=== PATIENT | female | born 1940 | race Caucasian/White ===

== ENCOUNTER 2019-04-16 17:15 | Inpatient (IN) | payer MEDICARE, SELFPAY ==
[2019-01-06 12:31] VITALS: BMI 28.5
[2019-04-16 17:30] VITALS: BP 134/49; PULSE 66; RESP 16; TEMP 36.6; O2SAT 95; BMI 28.4; BMI 28.5
[2019-04-16 19:11] VITALS: BP 134/49; PULSE 66; RESP 16; TEMP 36.6; O2SAT 95
[2019-04-16] MEDS: Capsaicin 0.025% 1 APPLIC Tube TOPICAL (21:15)
[2019-04-16] MEDS: Heparin Injection (Vial) 5,000 UNIT/ML VIAL 5000 UNIT SC (21:21)
[2019-04-16] MEDS: MELATONIN 3 MG TABLET 9 MG PO (21:22)
[2019-04-16] MEDS: Carvedilol 6.25 MG Tablet PO (21:22)
[2019-04-16] MEDS: dilTIAZem CD 120 MG Capsule PO (21:22)
[2019-04-16] MEDS: Smz/Tmp Ds Tablet 1 TABLET PO (21:22)
[2019-04-16] MEDS: Doxazosin 1 MG Tablet 2 MG PO (21:22)
[2019-04-16] MEDS: clonazePAM 0.5 MG Tablet 1 MG PO (21:33)
[2019-04-16] MEDS: Senna/Docusate Sodium 1 Tablet 2 TABLET PO (21:41)
--- NOTE | 2019-04-17 02:15 | NURSING ---
PT TRYING TO GET OUT OF BED. PT AWARE SHE IS IN HOSPITAL. INFORMED THAT SHE IS TO STAY IN BED FOR THE NIGHT. PT HALLUCINATING AND TALKING ABOUT HER FAMILY IF THEY WERE NEARBY. PT PLACED ON BEDPAN AND URINATES. PT PROVIDED NECTAR THICKENED SODA. PT TURNED TO OTHER SIDE. OFFERED TYLENOL FOR ACHING BACK, BUT PT REFUSES. PT REMAINS CALM AND COOPERATIVE.
--- NOTE | 2019-04-17 02:50 | NURSING ---
PT REMAINS AWAKE. WANTS TO GET UP AND OUT OF BED. PT AGREES TO TRY TYLENOL FOR BACKACHE PAIN WHICH IS SIMILAR TO BACK PAIN SHE GETS AT HOME AND USES IBUPROFEN WITH RELIEF AT HOME. PT CONTINUES TO BE COOPERATIVE. SPEECH IS CLEAR. NO CHANGES IN NEURO STATUS NOTED.
[2019-04-17] MEDS: Acetaminophen 325 MG Tablet 650 MG PO ×2 (02:56→20:33)
[2019-04-17 02:59] VITALS: PULSE 61; RESP 12; O2SAT 93
--- NOTE | 2019-04-17 04:01 | NURSING ---
PT HALLUCINATING THAT HER GRANDSON IS IN HER ROOM. PT DOESN'T BELIEVE THIS NURSE WHEN TOLD SHE IS HALLUCINATING. PT WANTS TO GET OUT OF BED. PT ASSISTED TO SIT AT SIDE OF BED. PT DOES NOT SUPPORT UPPER BODY SHE SITS ON SIDE OF BED. PT ENJOYS SITTING ON SIDE OF BED, DANGLING HER LEGS. PT PROVIDED A WARM BATH AND BACK LOTIONED. PT APPRECIATIVE AND ASSISTED TO LAY DOWN AND CLOSES EYES AND APPEARS RELAXED.
[2019-04-17 05:00] VITALS: BMI 28.4
[2019-04-17] MEDS: Heparin Injection (Vial) 5,000 UNIT/ML VIAL 5000 UNIT SC (06:52)
[2019-04-17] MEDS: Capsaicin 0.025% 1 APPLIC Tube TOPICAL ×3 (06:52→20:25)
[2019-04-17 07:15] VITALS: O2SAT 99
[2019-04-17] MEDS: Aspirin E.C. 81 MG Tablet PO (08:20)
[2019-04-17] MEDS: Magnesium Oxide 400 MG Tablet PO (08:20)
[2019-04-17] MEDS: Calcium Carb/Vitamin D 1 TABLET Tablet PO (08:20)
[2019-04-17] MEDS: Smz/Tmp Ds Tablet 1 TABLET PO ×2 (08:20→16:01)
[2019-04-17] MEDS: Doxazosin 1 MG Tablet 2 MG PO ×2 (08:20→20:26)
[2019-04-17] MEDS: Allopurinol 100 MG Tablet PO (08:21)
[2019-04-17] MEDS: dilTIAZem CD 120 MG Capsule PO ×2 (08:21→20:26)
[2019-04-17] MEDS: Carvedilol 6.25 MG Tablet PO ×2 (08:22→20:26)
[2019-04-17] MEDS: Furosemide 20 MG Tablet PO (08:23)
[2019-04-17] MEDS: Senna/Docusate Sodium 1 Tablet 2 TABLET PO ×2 (08:24→20:25)
[2019-04-17 08:43] VITALS: BP 136/64; PULSE 61; RESP 16; TEMP 36.3; O2SAT 100
--- NOTE | 2019-04-17 10:20 | HP.PCM_ITS ---
Problem List (1) Hemorrhagic cerebrovascular accident (CVA) Status: Acute Comment: Right thalamus 04/08/2019 (2) Hypertension Status: Chronic Qualifiers: Hypertension type: essential hypertension Qualified Code(s): I10 - Essential (primary) hypertension (3) Hypothyroidism Status: Chronic (4) Gout Status: Chronic (5) Chronic hypoxemic respiratory failure Status: Chronic (6) Chronic diastolic (congestive) heart failure Status: Chronic (7) Complicated UTI (urinary tract infection) Status: Acute (8) Anxiety Status: Chronic Comment: On clonazepam (9) Dysphagia Status: Acute (10) Overweight (BMI 25.0-29.9) Status: Chronic (11) Spinal stenosis Status: Chronic (12) Atherosclerosis of coronary artery of [place] heart without angina pectoris Status: Chronic Comment: CABG x 2: DEVRIES-LCx, PJ-D1 10/04/2010 (13) H/O coronary artery bypass surgery Status: Chronic Comment: CABG x 2: DEVRIES-LCx, PJ-D1 10/04/2010 (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 The pt is a 78-year-old female with a PMH of essential hypertension, hypothyroidism, coronary artery disease with history of CABG, inclusion body myositis, chronic diastolic congestive heart failure, chronic hypoxic respiratory failure on home O2, anxiety and chronic benzodiazepine use admitted to the Inpatient rehab unit at [facility] on 04/16/2019 for debility secondary to right thalamic hemorrhagic CVA on 04/08/2019 for greater than 3 hours of therapy daily with a goal of returning home at or near prior level of independence. The patient lives at a residential. Prior to the CVA she was walking with a front wheeled walker independently for short distance but relied on a wheelchair for longer distances. While at the [facility] she had a Blankenship catheter for 48 hours and then developed a complicated UTI and was placed on Bactrim. Results of urine culture were not sent with her paperwork. A brain MRI on 04/10/2019 showed acute/subacute right thalamic parenchymal hemorrhage without evidence of abnormal enhancement to suggest an underlying vascular lesion or mass. There was stable mass-effect and effacement of the right lateral and third ventricles without evidence of ventricular trapping or hydrocephalus. A CTA of the head and neck showed severe stenosis versus occlusion of the right BRICKLAYER HELPER P1 and proximal P2 segments with reconstitution distally. There was moderate focal stenosis of the left MCA proximal M2 segment and mild focal stenosis of the right MCA distal M1 segment. Echocardiogram was a poor study due to poor windows but showed a 55% left ventricular ejection fraction with no wall motion abnormalities. Agitated saline x2 was suboptimal. Echocardiogram at [facility] in 2011 showed normal left ventricular size with normal left ventricular systolic function and an EF of 60%. Pulmonary function tests done at [facility] on 07/12/2014 showed severe restrictive ventilatory defect with a symmetric reduction in diffusion capacity consistent with an interstitial lung disease. I suspect the severe restrictive defect may be due to inclusion body myositis causing weakness of the respiratory muscles. Past Medical History Past Medical History (Chronic Problems): Chronic Problems (Last Reviewed 04/17/19 @ 10:45 by Francine Chapa DO) Hypertension (Chronic) Hypothyroidism (Chronic) Gout (Chronic) Chronic hypoxemic respiratory failure (Chronic) Chronic diastolic (congestive) heart failure (Chronic) Anxiety (Chronic) On clonazepam Overweight (BMI 25.0-29.9) (Chronic) Spinal stenosis (Chronic) Restrictive lung disease (Chronic) Severe Atherosclerosis of coronary artery of [place] heart without angina pectoris (Chronic) CABG x 2: DEVRIES-LCx, PJ-D1 10/04/2010 H/O coronary artery bypass surgery (Chronic 10/04/10) CABG x 2: DEVRIES-LCx, PJ-D1 10/04/2010 Inclusion body myositis (Chronic) Medical History: Medical History (Last Reviewed 04/17/19 @ 10:45 by Francine Chapa DO) Atherosclerosis of coronary artery of [place] heart without angina pectoris (Chronic) I25.10 CABG x 2: DEVRIES-LCx, PJ-D1 10/04/2010 Inclusion body myositis (Chronic) G72.41 Asthma J45.909 Chronic respiratory failure with hypoxia J96.11 Due to myositis Obesity E66.9 Osteoarthritis M19.90 Polymyalgia rheumatica M35.3 Spinal stenosis M48.00 Hypoxemia (Resolved) R09.02 Shortness of breath R06.02 Dextrocardia (Ruled-out) Q24.0 Other abnormal heart sounds (Inactive) R01.2 Allergies hydrochlorothiazide Allergy (Verified 01/06/19 12:31) Swelling lisinopril Allergy (Verified 01/06/19 12:31) Swelling codeine Adverse Reaction (Severe, Verified 01/06/19 12:31) Unknown prednisone Adverse Reaction (Severe, Verified 01/06/19 12:31) Unknown paroxetine [From Paxil] Adverse Reaction (Intermediate, Verified 01/06/19 12:31) Agitation amiodarone Adverse Reaction (Verified 01/06/19 12:31) Other i went out of my head Corticosteroids (Glucocorticoids) Adverse Reaction (Verified 01/06/19 12:31) Other hyper diphenhydramine HCl [From Benadryl] Adverse Reaction (Verified 01/06/19 12:31) Other hyper morphine Adverse Reaction (Verified 01/06/19 12:31) Other it just paralyzes me. I will take it if in an end of life situation amlodopine Adverse Reaction (Severe, Uncoded 01/06/19 12:31) Flushing, nervousness Many foods Adverse Reaction (Severe, Uncoded 01/06/19 12:31) Hives Home Medications: Ambulatory Orders Medication Instructions Recorded Aspirin E.C. [Ecotrin] 81 mg PO DAILY 10/28/14 Calcium Carbonate/Vitamin D3 1 tab PO DAILY 10/28/14 [Calcium 500 mg Chewable Tablet] Cholecalciferol (VIT D3) [Vitamin 1,000 unit PO DAILY 10/28/14 D3] Clonazepam [Klonopin] 1 mg PO QHS 10/28/14 Multivitamins,Therapeutic 1 tab PO DAILY 10/28/14 [Multivitamin] Potassium 99 mg PO DAILY 10/28/14 allopurinol 100 mg tablet 100 mg PO DAILY tab 06/06/17 [place] Thyroid 0.45 mg PO DAILY 01/28/18 magnesium oxide 500 mg capsule 500 mg PO DAILY cap 01/28/18 Benzocaine/Menthol [Cepacol Sore 1 lozenger PO Q2H PRN PRN 04/16/19 Throat Lozenge] Capsaicin 1 applicatio TOPICAL TID 04/16/19 Carvedilol 1 tab PO BID 04/16/19 Cinnamon Bark [Cinnamon] 1,000 mg PO DAILY 04/16/19 Diltiazem HCl [Cardizem Cd] 120 mg PO BID 04/16/19 Doxazosin Mesylate 2 mg PO BID 04/16/19 Furosemide [Lasix] 20 mg PO DAILY 04/16/19 Heparin 5 Unit/5 ml (1/ml) Syr 5,000 units SQ TID 04/16/19 Lidocaine [Salonpas] 1 patch TOPICAL DAILY 04/16/19 Melatonin 9 mg PO QHS 04/16/19 Smz/Tmp Ds [Bactrim Ds] 1 tab PO BID 04/16/19 Tylenol 650 mg PO Q6H PRN PRN 04/16/19 Surgical History: Surgical History (Last Reviewed 04/17/19 @ 10:45 by Francine Chapa DO) H/O coronary artery bypass surgery (Chronic) Onset Date: 10/04/10 Z95.1 CABG x 2: DEVRIES-LCx, PJ-D1 10/04/2010 H/O arthroscopic knee surgery Z98.890 History of shoulder surgery Z98.890 History of back surgery Z98.890 History of hysterectomy Z90.710 Surgical History: coronary bypass surgery, total hip arthroplasty Psychiatric History: Anxiety EDGER AUTOMATIC History: No pertinent EDGER AUTOMATIC history Lives: [facility] Smoking Status: Never smoker Tobacco Use: Non-smoker Alcohol: None Drugs: None - *Family History Maternal Family History: Family History (Last Reviewed 04/17/19 @ 10:46 by Francine Chapa DO) Father CAD (coronary artery disease) Brother Cancer Brother Diabetes History Items: No pertinent history Review of Systems Constitutional: Reports: Weakness, Fatigue - has not been sleeping well. Denies: Chills, Fever, Weight Change Eyes: Denies: Blurred vision HEENT: Denies: Difficulty Hearing, Ear Pain, Eye Pain, Head Aches, Nasal Congestion, Sinus Congestion, Sinus Drainage, Sore Throat Cardiovascular: Denies: Chest Pain, Edema, Light Headedness, Orthopnea, Palpitations Respiratory: Denies: Cough, Hemoptysis, Pleuritic Pain, Shortness of Breath, Shortness of breath at rest, Sputum production Gastrointestinal: Denies: Abdominal Pain, Constipation, Diarrhea, Dyspepsia, Nausea, Vomiting Genitourinary: Denies: Dysuria Gynecological: Denies: Vaginal discharge Musculoskeletal: Reports: Back Pain - chronic, Shoulder Pain - left. Denies: Joint Pain, Joint Tenderness Skin: Reports: Dryness. Denies: Jaundice, Pruritis, Rash, Wounds Neurological: Reports: Balance problems, Confusion - having some confusion/delirium. Denies: Focal weakness, Headaches, Numbness, Tingling, Tremor, Seizures Psychiatric: Denies: Anxiety, Depression, Homicidal Ideations, Suicidal Ideations Endocrine: Denies: Change in Body Habitus, Hx of Irradiation Hematologic/ Lymphatic: Denies: Easy Bruising, Easy Bleeding, Hx of blood clot VTE Information - Inpt Only VTE Present on Admission: No VTE Mechan Device Prophylaxis: None VTE Pharm Prophylaxis ordered?: Yes Patient Problems: Active and Suspected Problems (Last Reviewed 04/17/19 @ 10:45 by Francine Chapa DO) Hemorrhagic cerebrovascular accident (CVA) (Acute) Right thalamus 04/08/2019 Complicated UTI (urinary tract infection) (Acute) Dysphagia (Acute) History of polymyalgia rheumatica (Acute) - Physical Exam Vitals/I&O's: Vital Signs Temp Pulse Resp BP Pulse Ox 97.4 F L 61 16 136/64 H 100 04/17/19 08:43 04/17/19 08:43 04/17/19 08:43 04/17/19 08:43 04/17/19 08:43 Oxygen Flow Rate (L/min) 2 Oxygen Delivery Method Nasal Cannula Weight: 150 lb 9.211 oz Body Mass Index (BMI) 28.4 Finger Stick Blood Glucose 111 Intake and Output for Last 24 Hours 04/15/19 04/16/19 04/17/19 23:59 23:59 23:59 Intake Total 200 / 200 420 / 420 Output Total 200 / 200 300 / 300 Balance 0 / 0 120 / 120 General: Alert, Oriented x3, Cooperative, Well developed, Well nourished, - - appears tired HEENT: Atraumatic, PERRLA, EOMI, Normocephalic Oral: Dry Mucosa, - - the tongue is coated with a thick whitish exudate and she is always having a bad taste in her mouth Neck: Supple, No JVD, Negative Carotid Bruits, No Nodes, Trachea Midline Lungs: - - the upper lungs posteriorly are CT auscultation but, there is very diminished air exchange in the bases and there is inspiratory and expiratory wheezing. She is not tachypneic at rest and has no conversational dyspnea. There is no accessory muscle use. Cardiovascular: Regular rate, Regular Rhythm, Normal S1, Normal S2, No murmurs, No rub noted, No Gallop Abdomen: Bowel Sounds Present, Soft, Non Tender, Non-Distended, - - No guarding with palpation. No pain with palpation of the suprapubic area Extremities: No clubbing, No cyanosis, No edema Musculoskeletal: Muscle Wasting Neurological: Cranial nerves II-XII grossly intact, - - no facial droop. Intact sensation throughout. No visual field cuts. 1/5 strength LUE.....can move it a little side to side on the bed but, can not lift it off the bed. Left solution architect is weaker than the right. She can lift the left leg off the bed a couple inches but, it drifts down. Can do heel to leigh with the R leg and finger to nose with the R hand (she is R hand dominant) but, can not do either with the Left arma and leg. Psych/Mental Status: Normal Affect, Appropriate Current Medications Acetaminophen (Tylenol) 650 mg PO Q6H PRN PRN PRN Reason: pain or fever Last Admin: 04/17/19 02:56 Dose: 650 mg Documented by: [facility]) [facility] Last Admin: 04/17/19 08:21 Dose: 100 mg Documented by: Aspirin (Ecotrin) [facility] Last Admin: 04/17/19 08:20 Dose: 81 mg Documented by: Bisacodyl (Dulcolax) 10 mg RECTAL .PRN X 1 PRN PRN Reason: Constipation Calcium/Vitamin D (Os-Wiliam 500mg + D) [facility] Last Admin: 04/17/19 08:20 Dose: 1 tablet Documented by: Capsaicin (Zostrix) 1 applic TOPICAL TID [facility] Last Admin: 04/17/19 06:52 Dose: 1 applicatio Documented by: Carvedilol (Coreg) 6.25 mg PO BID [facility] Last Admin: 04/17/19 08:22 Dose: 6.25 mg Documented by: Cholecalciferol (Vitamin D) 1,000 unit PO DAILY [facility] Last Admin: 04/17/19 08:20 Dose: 1,000 unit Documented by: Clonazepam (Klonopin) 1 mg PO QHS [facility] Last Admin: 04/16/19 21:33 Dose: 1 mg Documented by: Diltiazem HCl (Cardizem Cd) 120 mg PO BID [facility] Last Admin: 04/17/19 08:21 Dose: 120 mg Documented by: Doxazosin Mesylate (Cardura) 2 mg PO BID [facility] Last Admin: 04/17/19 08:20 Dose: 2 mg Documented by: Furosemide (Lasix) 20 mg PO DAILY [facility] Last Admin: 04/17/19 08:23 Dose: 20 mg Documented by: Heparin Sodium (Porcine) (Heparin Na) 5,000 unit SC Q8 [facility] Last Admin: 04/17/19 06:52 Dose: 5,000 unit Documented by: Lidocaine (Lidoderm Patch) 1 patch TOPICAL DAILY [facility]; Protocol Magnesium Hydroxide (Milk Of Magnesia) 30 ml PO .PRN X 1 PRN PRN Reason: Constipation Magnesium Oxide (Mag-Ox 400) 400 mg PO DAILY [facility] Last Admin: 04/17/19 08:20 Dose: 400 mg Documented by: Melatonin (Melatonin) 9 mg PO QHS [facility] Last Admin: 04/16/19 21:22 Dose: 9 mg Documented by: Non-Formulary Medication ([place] Thyroid) 0.45 mg PO DAILY [facility] Senna/Docusate Sodium (Senokot-S, Yuliya-Colace) 2 tablet PO BID [facility] Last Admin: 04/17/19 08:24 Dose: 1 tablet Documented by: Throat Lozenges (Cepacol Sore Throat Lozenge) 1 lozenge MUCOUS MEM Q2H PRN PRN PRN Reason: SORE THROAT Trimethoprim/Sulfamethoxazole (Bactrim Ds) [facility] Last Admin: 04/17/19 08:20 Dose: 1 tablet Documented by: Assessment/Plan All Active Problems (Last Reviewed 04/17/19 @ 10:45 by Francine Chapa DO) Hemorrhagic cerebrovascular accident (CVA) (Acute) Complicated UTI (urinary tract infection) (Acute) Dysphagia (Acute) History of polymyalgia rheumatica (Acute) Hypoxemia (Resolved) Nonspecific abnormal unspecified cardiovascular function study (Resolved) Dextrocardia (Ruled-out) Impressions 1. Debility secondary to right thalamic hemorrhagic CVA on 04/08/2019 with left side weakness, dysphagia, memory deficits 2. Delirium secondary to acute CVA plus/minus urinary tract infection. Patient is on Bactrim currently which can cause some confusion in the elderly. We will request the results of the urine culture from [facility] and adjust antibiotic appropriately. 3. Complicated cystitis in a pt who had a Blankenship cath for 48 hours. Currently on Bactrim started at [facility]. 4. Diminished BS's and wheezing in the bases of both lungs. PA and LAT CXR ordered to r/o PNA. IS and PEP ordered and PRN Aerosolized bronchodilators. 5. Inclusion body myositis- this complicates care, management and prognosis. There is really no effective medication that treats IBM. Steroids do not work. Therapy is a mainstay of treatment. 6. chronic medical conditions -essential hypertension/hypothyroidism/severe restrictive lung disease/coronary artery disease with history of CABG/chronic low back pain with history of back surgery/gout/history of diastolic congestive heart failure/anxiety-complicate care, management and prognosis PLAN PT for gait stability OT for ADL's ST for evaluation Analgesics as needed Bowel protocol Fall precautions Assess for Anxiety/Depression GI prophylaxis not necessary at this time DVT prophylaxis with Lovenox 40 mg subcutaneously daily Follow up with Tamera Zepeda following DC from [facility] Obtain PCP results of muscle biopsy, problem list and med list Obtain the urine culture results from [facility], CBC with diff, Mag, phos, ESR, UA in the AM PA and LAT CXR today. A total of 75 minutes was spent reviewing paperwork from [facility], reviewing old ECHO, lab etc from [facility], interviewing and examining the pt and completing paperwork for this patient and doing admit orders. Code Visit Inpatient E&M: [id number] Init Hosp L3
--- NOTE | 2019-04-17 11:50 | PCM.RU.PYE ---
Admission Information Primary Diagnosis:: Debility secondary to right thalamic hemorrhage on 04/08/2019 Status Changes from Prescreening?: No changes Identified Actual Problem List:: Infection, UTI, Skin Intergrity, Cognitve Impr/Memory Loss, Alteration in Sleep, Mobility Impaired, Self Care Deficit, BP, Hypertension, Alteration-Leisure Activ. Potential Problem List:: DVT, Bleeding, Infection, UTI, Aspiration, Falls, Skin Integrity, Depression Risk of Complications DVT: LMWH Bleeding: Monitor Lab Values, Nursing to Teach Precautions for anti-coagulation therapy., Wound, if applicable, to be assessed every shift., Stroke patients assessed for lethargy or change in status. Infection: Clinical Staff to Monitor for S/S of infection:, S/S of infection include fever, redness, warmth, etc. Urinary Tract Infection: Monitor for frequency, burning, discomfort, or incontinence., Nursing will obtain urine sample for urinalysis and C&S when ordered. Aspiration: Clinical staff will monitor for coughing, drooling, congestion., Speech will evaluate swallowing and dsyphasia., Nursing will monitor patient swallowing during meals. Falls: Patient will be evaluated for Fall Precautions, Patient will be placed on Fall Precautions as indicated per protocol. Skin Breakdown: Nursing will assess skin daily using assessment tool., Nursing will place on Skin Breakdown Precautions as indicated. Pain: Clinical staff will assess patient's pain level per protocol., Medications will be given, if needed, and the pain level reassessed., Other methods: Massage, distraction, decrease stimulus, etc. used PRN. Plan of Care Patient requires physician specializing in physical medicine and rehab oversight to provide close medical supervision of rehab issues including: Pain Management, Sleep Problems, Bowel and Bladder, Medical and co-morbidity Management, DVT prophylaxis, Rehabilitation Leadership, Coordination of treatment team Patient needs Physical Therapy: For a minimum of 1 hour, At least 5 out of 7 days Patient needs Physical Therapy to improve:: Mobility, Mobility, Mobility, Strengthening, Transfers, Stretching, ROM, Endurance, Stairs, Gait, Balance Patient needs Occupational Therapy: For a minimum of 1 hour, At least 5 out of 7 days Patient needs Occupational Therapy to improve ADL's incl.: Eating, Grooming, Bathing, Dressing, Toileting, Toilet transfers, Community Reintegration, Higher functioning activities, Household tasks, Adaptive Equipment, Splinting, Other activities as determined Patient requires speech therapy: For a minimum of 1 hour, At least 5 out of 7 days Patient requires speech therapy for: Swallowing, Cognition, Language Skills, Compensatory Strategies Patient requires 24/ Rehabilitation Nursing for: Pain Issues, Identifying and preventing risk factors, Monitoring and reporting current medical conditions, Assisting with ambulation, transfer, and all ADL's, Teaching patients about disease process and medications, Family teaching, Providing safe environment, Bowel and Bladder Issues, Skin integrity, Medication Management Patient needs Learning Disabilities Teacher/ Case Management for: Discharge Planning, Arranging Home Equipment or Services, Family Interventions Patient needs Dietary and Nutrition Services for: Adequate Nutrition, Nutritional Supplements, Nutritional Education Goals Patient will remain: free from falls, or injury at time of discharge. Patient will perform bed mobility at: MOD I level of assist. Patient will complete transfers from bed to chair at: MOD I level of assist. Patient will ambulate: 100 feet, with MOD I assist, with LRD Patient will complete upper body dressing at: MOD I level of assist. Patient will complete lower body dressing at: MOD I level of assist. Patient will complete toileting at: MOD I level of assist. Patient will perform bathing at: MOD I level of assist. Patient will complete grooming at: MOD I level of assist. Patient will complete home management skills at: MOD I level of assist. Patient will achieve: 12 stairs, at MOD I assist Patient will have pain level of: of 3 or less Patient's skin will: remain intact, free from infection. Patient will receive: adequate nutrition. Discharge Planning Pt Prognosis for Sig. Practical Improv. w/in Reasonable Time: Good Estimated Length of stay (days): 21 Anticipated D/C Destination: Care Home Facility Was Preadmission Assessment Accurate?: Yes
--- NOTE | 2019-04-17 12:17 | RAD_ITS ---
STUDY: X-RAY CHEST REASON FOR EXAM: Female, 78 years old. WHEEZING IN BILATERAL LUNG BASES TECHNIQUE: PA and lateral views of the chest. COMPARISON: 10/28/2014. FINDINGS: The lungs are underexpanded. There is mild right suprahilar atelectasis, remainder of the lungs are clear and stable in the interval. There is no demonstrated pleural abnormality. Midline sternotomy wires otherwise normal cardiac size. Normal mediastinum and sylvia. Normal visualized pulmonary arteries. There is atherosclerotic calcification of the aortic arch with tortuosity. There is demineralization of the osseous structures. There is degenerative osteoarthritis of the bilateral shoulders. Postoperative changes with fixation screw through the left humeral head suggestive of rotator cuff repair. There is no demonstrated abnormality of the visualized soft tissue structures of the upper abdomen. RAD/Chest PA and Lateral IMPRESSION: Right suprahilar atelectasis, otherwise no acute cardiopulmonary disease. Stable study in the interval. Electronically Signed: Emily Sheppard MD at 4:12 EST , Service support ,
[2019-04-17] MEDS: Lidocaine 5% Patch 1 PATCH TOPICAL (12:47)
[2019-04-17] MEDS: NYSTATIN 500,000 UNIT/5 ML UDC 500000 UNIT PO ×3 (12:47→20:25)
[2019-04-17 15:06] VITALS: BMI 28.4
--- NOTE | 2019-04-17 16:39 | CASEMGMT ---
Social Work Met with pt for initial assessment. Completed PHQ-9. Score of 03/13. Medications in place for assistance. Will continue to follow. India Gonzales social work internet consultant LENNOX Blake [employer]
--- NOTE | 2019-04-17 16:51 | CASEMGMT ---
Social Work Reviewed and agreed with social work documentation on this date. Tala Alejandro, SOFTWARE DEVELOPER MID LEVEL FIELD CLINICAL ENGINEER
[2019-04-17] MEDS: clonazePAM 0.5 MG Tablet 1 MG PO (20:26)
[2019-04-17 20:45] VITALS: BP 119/57; PULSE 62; RESP 18; TEMP 36.6; O2SAT 98
[2019-04-18 03:37] VITALS: BMI 28.4
[2019-04-18] MEDS: Capsaicin 0.025% 1 APPLIC Tube TOPICAL ×3 (06:15→20:30)
[2019-04-18] MEDS: Acetaminophen 325 MG Tablet 650 MG PO (06:15)
[2019-04-18] MEDS: Enoxaparin 40 MG/0.4 ML Syringe SC (06:15)
[2019-04-18 07:00] VITALS: BP 134/62; PULSE 60; RESP 16; TEMP 36.4; O2SAT 99
[2019-04-18 07:04] VITALS: O2SAT 96
[2019-04-18] MEDS: Cefadroxil 500 MG CAPSULE 1000 MG PO ×2 (08:34→20:32)
[2019-04-18] MEDS: Doxazosin 1 MG Tablet 2 MG PO ×2 (08:34→20:32)
[2019-04-18] MEDS: Allopurinol 100 MG Tablet PO (08:34)
[2019-04-18] MEDS: Magnesium Oxide 400 MG Tablet PO (08:34)
[2019-04-18] MEDS: Carvedilol 6.25 MG Tablet PO ×2 (08:34→20:32)
[2019-04-18] MEDS: Senna/Docusate Sodium 1 Tablet 2 TABLET PO (08:35)
[2019-04-18] MEDS: NYSTATIN 500,000 UNIT/5 ML UDC 500000 UNIT PO ×4 (08:35→20:32)
[2019-04-18] MEDS: Calcium Carb/Vitamin D 1 TABLET Tablet PO (08:35)
[2019-04-18] MEDS: Aspirin E.C. 81 MG Tablet PO (08:35)
[2019-04-18] MEDS: dilTIAZem CD 120 MG Capsule PO ×2 (08:35→20:33)
[2019-04-18] MEDS: Lidocaine 5% Patch 1 PATCH TOPICAL (08:35)
[2019-04-18] MEDS: Furosemide 20 MG Tablet PO (08:36)
[2019-04-18 09:49] LABS: Absolute Lymphocyte Count 1.08 X10^3/uL (0.83-4.51); Absolute Neutrophil Count 2.4 X10^3/uL (2.0-7.7); Basophil# 0.01 X10^3/uL; Basophil% 0.2 % (0-1); Eosinophils% 4.8 % (0-5); Hematocrit 33.2 % (37-47); Hemoglobin 10.4 g/dL (12.0-15.0); Lymphocyte # 1.08 X10^3/ul (4.0); Lymphocyte % 25.7 % (19-41); Mean Corp Hgb Conc 31.3 g/dL (32-36); Mean Corpuscular Hgb 28.7 pg (27.0-32.0); Mean Corpuscular Volume 91.7 fL (81-99); Mean Platelet Vol. 10.9 fl (6.2-12.0); Monocyte# 0.47 X10^3/uL; Monocyte% 11.2 % (0-10); NRBC Flagged by Analyzer 0 % (0-5); Neutrophil # 2.43 X10^3/uL (2.7-7.7); Neutrophil % 57.6 % (47-70); Platelet Count 296 K/mm3 (150-450); RBC Distribution Width SD 54.3 fl (35.1-43.9); Red Blood Count 3.62 M/mm3 (4.2-5.4); White Blood Count 4.2 K/mm3 (4.4-11.0)
[2019-04-18 10:11] LABS: ALB/GLOB Ratio 0.6 RATIO (0.9-2.4); AST(SGOT) 54 U/L (15-37); Alanine Aminotransfer ALT/SGPT 42 U/L (13-56); Albumin, Serum 2.8 g/dL (3.2-5.0); Alkaline Phosphatase 83 U/L (45-117); Anion Gap 4 (5-15); BUN 25 mg/dL (7-18); BUN/Creat Ratio 22.3 RATIO (10-20); Calcium,Total 8.9 mg/dL (8.5-10.1); Chloride 106 mmol/L (98-107); Creatinine, Serum 1.12 mg/dL (0.55-1.02); EST Glomerular Filtration Rate 50 mL/min (>60); Est Glom Filt Rate - Afr Amer 60 mL/min (>60); Estimated Creatinine Clearance 30.23 ml/min; Globulin 4.7 g/dL (2.2-4.2); Glucose 108 mg/dL (74-106); Magnesium 2.2 mg/dL (1.6-2.6); Phosphorus 3.4 mg/dL (2.5-4.9); Potassium 4.3 mmol/L (3.5-5.1); Protein, Total 7.5 g/dL (6.4-8.2); Sodium Level 137 mmol/L (136-145); Uric Acid 5.7 mg/dL (2.6-6.0)
[2019-04-18 10:21] LABS: Erythrocyte Sedimentation Rate 49 mm/hr (0-30)
[2019-04-18 15:28] VITALS: BMI 28.4
[2019-04-18 19:40] VITALS: BP 126/62; PULSE 66; RESP 16; TEMP 36.6; O2SAT 96
[2019-04-18] MEDS: clonazePAM 0.5 MG Tablet 1 MG PO (20:32)
[2019-04-19] MEDS: Acetaminophen 325 MG Tablet 650 MG PO ×3 (00:29→17:22)
[2019-04-19] MEDS: Capsaicin 0.025% 1 APPLIC Tube TOPICAL ×3 (06:49→21:16)
[2019-04-19] MEDS: Enoxaparin 40 MG/0.4 ML Syringe SC (06:50)
[2019-04-19 07:08] VITALS: BP 118/51; PULSE 62; RESP 16; TEMP 36.6; O2SAT 99
[2019-04-19 07:30] VITALS: O2SAT 97
[2019-04-19] MEDS: Calcium Carb/Vitamin D 1 TABLET Tablet PO (08:01)
[2019-04-19] MEDS: Magnesium Oxide 400 MG Tablet PO (08:01)
[2019-04-19] MEDS: Cefadroxil 500 MG CAPSULE 1000 MG PO ×2 (08:01→21:19)
[2019-04-19] MEDS: Carvedilol 6.25 MG Tablet PO ×2 (08:02→21:19)
[2019-04-19] MEDS: Lidocaine 5% Patch 1 PATCH TOPICAL (08:02)
[2019-04-19] MEDS: Furosemide 20 MG Tablet PO (08:02)
[2019-04-19] MEDS: Doxazosin 1 MG Tablet 2 MG PO ×2 (08:02→21:19)
[2019-04-19] MEDS: Aspirin E.C. 81 MG Tablet PO (08:02)
[2019-04-19] MEDS: Allopurinol 100 MG Tablet PO (08:02)
[2019-04-19] MEDS: dilTIAZem CD 120 MG Capsule PO ×2 (08:02→21:19)
[2019-04-19] MEDS: NYSTATIN 500,000 UNIT/5 ML UDC 500000 UNIT PO ×4 (08:03→21:18)
[2019-04-19 12:14] VITALS: BMI 28.4
--- NOTE | 2019-04-19 14:29 | PN_ITS ---
Progress Note Afebile VSS Maintaining appropriate oxygen saturation on RA. She has chronic hypoxic respiratory failure and is on home O2. The pulse ox on 2 L ranges from 96 to 99%. Oral intake is fair Discussed with nursing - no problems that need addressed. Reviewed the PT/OT/ST notes Medication list reviewed. All lab was personally reviewed. WBC was mildly decreased at 4.2 with an unremarkable differential. Hemoglobin is 10.4 with normochromic normocytic indices. Platelets are within normal limits. The ESR is 49. BMP is remarkable for a BUN of 25 and a creatinine of 1.12 with a GFR of 50 making her stage III chronic renal failure. Creatinine is really not changed in the past 7 or 8 years. Fasting glucose is 108. Calcium, phosphorus and magnesium are all within normal limits. LFTs are unremarkable. Vitamin D level is normal. She is complaining that the bed is very uncomfortable and she has been unable to sleep. Denies diarrhea, constipation, nausea, vomiting. She does have decreased appetite. No cough and no SOB. Alert, depressed/flat affect, pale Lungs-diminished in the bases, no wheezing today, few coarse crackles in the right base - I went back and personally reviewed the CXR and there may be a small retrocardiac infiltrate or atelectasis on the right Abdomen-soft, nontender, nondistended, no guarding with palpation, bowel sounds present Heart-regular rate and rhythm, no murmur, no gallop No peripheral edema She has a Left facial droop today that I did not notice at admission so much. No change in the weakness of the LUE or LLE, no neglect, no visual field cuts Impressions 1. 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 insomnia - she is on Klonopin at already 3. suspect depression - will discuss with her family 4. Crackles in the Right base but, no fever and no SOB and no cough.....probably atelectasis 5. UTI - currently on Bactrim - awaiting the results of the urine culture done at [facility] Continue therapy Encouraged her to increase her fluid intake Code Visit Inpatient E&M: 84670 Subs Hosp L2
--- NOTE | 2019-04-19 18:00 | NURSING ---
When this nurse entered room a cup of regular liquids half full was sitting in front of her and she reported that her friend gave her that water. Lungs remain diminished and unchanged from prior assessment and no coughing had been noted. Will monitor.
[2019-04-19 19:17] VITALS: BP 145/54; PULSE 62; RESP 16; TEMP 36.6; O2SAT 100
[2019-04-19] MEDS: Senna/Docusate Sodium 1 Tablet 2 TABLET PO (21:16)
[2019-04-19] MEDS: clonazePAM 0.5 MG Tablet 1 MG PO (21:22)
[2019-04-20] MEDS: Acetaminophen 325 MG Tablet 650 MG PO (00:52)
--- NOTE | 2019-04-20 04:26 | NURSING ---
PT PLACED ON BSC FOR SECOND TIME THIS NIGHT AND IS UNABLE TO PASS MORE THAN 10 ML URINE. BLADDER SCANNED FOR APPROX 450 ML URINE. PT STATES SHE HAS A TILTED BLADDER AND HAS TO LEAN FORWARD TO URINATE. PT STRAIGHT CATHED PER STERILE TECHNIQUE WITHOUT DIFFICULTY AND DRAINS 400 ML OF CLEAR YELLOW URINE WITH NORMAL ODOR. PT HAD TO HAVE HOB ELEVATED APPROX 45 DEGREES IN ORDER TO DRAIN BLADDER. PT TOLERATES PROCEDURE WELL.
[2019-04-20] MEDS: Capsaicin 0.025% 1 APPLIC Tube TOPICAL ×3 (06:18→21:53)
[2019-04-20] MEDS: Enoxaparin 40 MG/0.4 ML Syringe SC (06:18)
[2019-04-20] MEDS: Senna/Docusate Sodium 1 Tablet 2 TABLET PO (08:17)
[2019-04-20] MEDS: Magnesium Oxide 400 MG Tablet PO (08:17)
[2019-04-20] MEDS: dilTIAZem CD 120 MG Capsule PO ×2 (08:17→21:32)
[2019-04-20] MEDS: Furosemide 20 MG Tablet PO (08:18)
[2019-04-20] MEDS: Calcium Carb/Vitamin D 1 TABLET Tablet PO (08:18)
[2019-04-20] MEDS: Doxazosin 1 MG Tablet 2 MG PO ×2 (08:18→21:30)
[2019-04-20] MEDS: Lidocaine 5% Patch 1 PATCH TOPICAL (08:18)
[2019-04-20] MEDS: Allopurinol 100 MG Tablet PO (08:18)
[2019-04-20] MEDS: Cefadroxil 500 MG CAPSULE 1000 MG PO ×2 (08:18→21:31)
[2019-04-20] MEDS: Aspirin E.C. 81 MG Tablet PO (08:18)
[2019-04-20] MEDS: Carvedilol 6.25 MG Tablet PO ×2 (08:18→21:32)
[2019-04-20 08:24] VITALS: O2SAT 98
[2019-04-20] MEDS: NYSTATIN 500,000 UNIT/5 ML UDC 500000 UNIT PO ×4 (08:25→21:41)
[2019-04-20 08:45] VITALS: BP 130/68; PULSE 64; RESP 16; TEMP 37; O2SAT 94
[2019-04-20 09:44] LABS: Vitamin D,25 Hydroxy 55.6 ng/mL (29.95-100.01)
--- NOTE | 2019-04-20 10:23 | CASEMGMT ---
Addendum entered by India Gonzales 04/20/19 10:28: Tala Alejandro, SOLDERER BARREL RIBS DIRECTOR OF RELIGIOUS LIFE Original Note: Scoial Work IDT met with pt and two daughters for Team meeting. Pt is mod-max x2 for transfers, total assist for toileting tasks and UE and LE ADLs. Pt fatigues easily. Pt can feed self, has left arm weakness, and not sleeping well. Physician started pt on medication. ST has pt on mech soft and nectar thin diet, SUP with meals. Pt has cog deficits, trouble with recall, orientation, and lack of safety awareness. explained insurance information with NRD 04/20/2019, continued stay not guaranteed. Will continue to follow. India Gonzales, Social Work spring internship Tala Rodriguez,
[2019-04-20 10:54] VITALS: BP 150/75; PULSE 61; RESP 16; TEMP 36.4; O2SAT 98
--- NOTE | 2019-04-20 12:28 | PN_ITS ---
Progress Note Patient was seen on team rounds today in her room. Her daughters Kaity and Miya were present. Afebile VSS Maintaining appropriate oxygen saturation on RA Oral intake is poor. Discussed with nursing - no problems that need addressed. She is requesting to use her own sleep aid at .....it contains Melatonin and another med. I appro lisa this...she may take her own. She also takes Klonopin at on a regular basis. Reviewed the PT/OT/ST notes Medication list reviewed. She is having a hard time sleeping and she is blaming this on the bed. She is also having a decreased appetite and feels tired all the time. She admits to having been depressed in the past. I discussed starting Remeron with Nanci and her dtrs and they are agreeable. Would like to decrease the Klonopin but, pt is resistant at this time......will bring this discussion up again when she is sleeping better. Alert, flat affect, soft voice Lungs-diminished in the bases, no wheezing, few crackles in the bases that improved after a few deep breaths Heart-regular, no gallop, no murmur Abdomen-soft, nondistended, nontender, bowel sounds heard in all 4 quadrants no edema no change in the neuro exam. Impressions 1. insomnia, poor appetite and intake, flat affect, + hx of depression - start Remeron. 2. Right thalamic hemorrhagic infarct with debility 3. Complicated cystitis-currently denying dysuria. We received the results of the urine culture and sensitivities from [facility] and the organism is sensitive to cephalosporins.....Bactrim DC's and she has been transitioned to Duricef 4. Depression Start Remeron 7.5 mg p.o. nightly Continue Klonopin 1 mg p.o. nightly Allow her nighttime sleep aid from home. STROKE Vital Signs/Narrative: Vital Signs Temp Pulse Resp BP Pulse Ox 04/20/19 10:54 97.6 F L 61 16 150/75 H 98 04/20/19 08:45 98.6 F 64 16 130/68 H 94 Code Visit Inpatient E&M: 57115 Subs Hosp L2
[2019-04-20 13:36] VITALS: BMI 28.4
[2019-04-20 20:57] VITALS: BP 122/65; PULSE 79; RESP 16; TEMP 36.7; O2SAT 99
[2019-04-20 21:28] VITALS: BP 131/61; PULSE 73
[2019-04-20] MEDS: Mirtazapine 15 MG Tablet 7.5 MG PO (21:32)
[2019-04-20] MEDS: clonazePAM 0.5 MG Tablet 1 MG PO (21:41)
[2019-04-21] VITALS (8 sets, daily range): BP systolic 106–127; BP diastolic 46–60; PULSE 64–68; RESP 16–18; TEMP 36.4–36.9; O2SAT 93–99; BMI 28.4
[2019-04-21] MEDS: Acetaminophen 325 MG Tablet 650 MG PO ×2 (02:04→10:05)
[2019-04-21] MEDS: Capsaicin 0.025% 1 APPLIC Tube TOPICAL ×3 (06:06→20:07)
[2019-04-21] MEDS: Enoxaparin 40 MG/0.4 ML Syringe SC (06:07)
[2019-04-21] MEDS: Calcium Carb/Vitamin D 1 TABLET Tablet PO (09:19)
[2019-04-21] MEDS: Carvedilol 6.25 MG Tablet PO ×2 (09:20→20:03)
[2019-04-21] MEDS: Cefadroxil 500 MG CAPSULE 1000 MG PO ×2 (09:20→20:02)
[2019-04-21] MEDS: dilTIAZem CD 120 MG Capsule PO ×2 (09:20→20:02)
[2019-04-21] MEDS: Doxazosin 1 MG Tablet 2 MG PO ×2 (09:20→20:01)
[2019-04-21] MEDS: NYSTATIN 500,000 UNIT/5 ML UDC 500000 UNIT PO ×4 (09:20→20:02)
[2019-04-21] MEDS: Furosemide 20 MG Tablet PO (09:20)
[2019-04-21] MEDS: Aspirin E.C. 81 MG Tablet PO (09:20)
[2019-04-21] MEDS: Lidocaine 5% Patch 1 PATCH TOPICAL (09:20)
[2019-04-21] MEDS: Magnesium Oxide 400 MG Tablet PO (09:20)
[2019-04-21] MEDS: Allopurinol 100 MG Tablet PO (09:20)
--- NOTE | 2019-04-21 16:28 | CHAPLAIN ---
Type of Pastoral Visit _x__ Initial Visit ___ Follow-up Visit ___ On-call Visit ___ General Patient Visit ___ Spiritual Assessment ___ Family Conference ___ Bereavement ___ Rapid Response ___ Code Blue ___ Other (describe below) Pastoral Care Referral From _x__ Patient ___ Family ___ Nurse ___ Physician ___ Business Analysis Analyst ___ Outer Diameter Grinder Tool ___ Other (describe below) Sacrament/Intervention _x__ Active listening ___ Anointing ___ Taoist ___ Bereavement ___ Communion ___ Gaby exploration ___ _x__ Life review _x__ Prayer ___ Reconciliation ___ Sacrament of Sick _x__ Supportive presence ___ Wedding ___ Other (describe below) Pastoral Comments
[2019-04-21] MEDS: clonazePAM 0.5 MG Tablet 1 MG PO (20:02)
[2019-04-21] MEDS: Mirtazapine 15 MG Tablet 7.5 MG PO (20:03)
--- NOTE | 2019-04-21 20:23 | NURSING ---
Dtr, Kaity, called voicing concern that pt was not on oxygen per nursing report today as oxygen levels have been WNL. Dtr fears that since pt has been dependent of O2 for the past 4 years that pt could drop to low levels and become anxious during the night. This nurse was advised per nursing handoff report of O2 being removed and stabilized levels observed. HS shift was planning to check sporadically the O2 levels and apply O2 as needed. At this time, O2 level was 95% and pt shows is calm and relaxed in bed. This nurse advised dtr that we would be diligent with checking levels throughout the night but at this time pt is holding her own O2 levels WNL.
[2019-04-22 00:37] VITALS: BMI 28.4
[2019-04-22] MEDS: Acetaminophen 325 MG Tablet 650 MG PO (03:48)
[2019-04-22] MEDS: Enoxaparin 40 MG/0.4 ML Syringe SC (06:32)
[2019-04-22] MEDS: Capsaicin 0.025% 1 APPLIC Tube TOPICAL ×3 (06:33→20:55)
[2019-04-22] MEDS: Calcium Carb/Vitamin D 1 TABLET Tablet PO (08:06)
[2019-04-22] MEDS: Aspirin E.C. 81 MG Tablet PO (08:06)
[2019-04-22] MEDS: Doxazosin 1 MG Tablet 2 MG PO ×2 (08:06→21:14)
[2019-04-22] MEDS: dilTIAZem CD 120 MG Capsule PO ×2 (08:06→21:14)
[2019-04-22] MEDS: Allopurinol 100 MG Tablet PO (08:06)
[2019-04-22] MEDS: Carvedilol 6.25 MG Tablet PO ×2 (08:07→21:14)
[2019-04-22] MEDS: Furosemide 20 MG Tablet PO (08:07)
[2019-04-22] MEDS: Cefadroxil 500 MG CAPSULE 1000 MG PO (08:07)
[2019-04-22] MEDS: Lidocaine 5% Patch 1 PATCH TOPICAL (08:07)
[2019-04-22] MEDS: NYSTATIN 500,000 UNIT/5 ML UDC 500000 UNIT PO ×4 (08:08→20:59)
[2019-04-22] MEDS: Magnesium Oxide 400 MG Tablet PO (08:08)
[2019-04-22 08:57] VITALS: BP 140/66; PULSE 68; RESP 18; TEMP 36.7; O2SAT 93
[2019-04-22 12:17] VITALS: BMI 28.4
[2019-04-22] MEDS: Mag Hydrox/Al Hydrox/Simeth 30 ML UDC PO (12:50)
--- NOTE | 2019-04-22 13:36 | PN_ITS ---
Progress Note Afebile VSS Maintaining appropriate oxygen saturation on RA Oral intake is poor to fair depending on the day Discussed with nursing - no overt problems that need addressed. Reviewed the PT/OT/ST notes Medication list reviewed. She tells me that the Zostrix is helping with shoulder pain She has many complaints today. She is not not sleeping well with the addition of Remeron 7.5 to her drug regimen. She feels very tired. Tells me that she takes MAG 1500 mg at bedtime and that helps her to sleep. She also tells me that she is having some visual hallucinations. Denies constipation. No nausea. States she feels full. Denies dysuria. Has been incontinent of urine. Pale, very flat affect, appears very fatigued MM are dry. Lungs - increased coarse crackles in the right base today that do not resolve with deep breaths. no wheezing. Not coughing and she is afebrile. Heart - RRR, no MM and no gallop no edema Impressions 1. persistent insomnia - increase the Remeron to 15 mg at HS and continue the Klonopin for now and the Melatonin. I suspect this has been a problem for quite a while she was taking Melatonin, Magnesium and Klonopin at home prior to the stroke. I suspect she has significant underlying depression. 2. poor intake - with dry MM...will hold the Lasix and recheck lab in the AM 3. Depression 4. 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 Hallucinations-more likely than not secondary to recent hemorrhagic CVA Pt is aware of this. 7. Complicated cystitis secondary to Blankenship catheter at another institution- continue cefadroxil Code Visit Inpatient E&M: 96455 Subs Hosp L2
[2019-04-22 17:50] LABS: Bacteria 0 SEEN /hpf (None Seen); Mucous, Urine 0 SEEN /hpf (<or=2+); Red Blood Cells-Urine 0 SEEN /hpf (0-5); Squamous Epithelial Cells - UA 0 SEEN /hpf (5-10); White Blood Cells 0 SEEN /hpf (0-5)
[2019-04-22 18:08] LABS: Color, Urine Yellow (Yellow); Glucose, Dipstick Normal (Normal); Ketone-Dipstick Negative (Negative); Leukocyte Esterase-Dipstick Negative /ul (Negative); Nitrite-Dipstick Negative (Negative); Occult Blood-Urine Negative /ul (Negative); Protein-Dipstick 15 mg/dl (Negative); Urine Bilirubin Dipstick Negative (Negative); Urine Clarity Clear (Clear); Urine Urobilinogen Normal (Normal)
[2019-04-22] MEDS: clonazePAM 0.5 MG Tablet 1 MG PO (18:53)
[2019-04-22 19:26] VITALS: BP 129/54; PULSE 79; RESP 16; TEMP 36.8; O2SAT 94
[2019-04-22] MEDS: Senna/Docusate Sodium 1 Tablet 2 TABLET PO (20:56)
[2019-04-22] MEDS: Mirtazapine 15 MG Tablet PO (20:59)
[2019-04-22] MEDS: Magnesium Oxide 400 MG Tablet 1200 MG PO (21:13)
[2019-04-22] MEDS: Cefadroxil 500 MG CAPSULE PO (21:14)
[2019-04-23] MEDS: Acetaminophen 325 MG Tablet 650 MG PO (01:10)
--- NOTE | 2019-04-23 01:43 | NURSING ---
PT BLADDER SCANNED FOR 450 ML URINE, THEN VOIDS INTO ATTENDS AND RESCANNED FOR 245 ML.
--- NOTE | 2019-04-23 02:50 | NURSING ---
2300 pt yelling out in room saying that there is someone is in her bathroom and she needs help. upon entering pt room. pt yelling that she needs to get up to talk to her parents- staff redirects and attempts to reorient pt. pt becomes argumentative with staff stating that she is at her parents home. 2330 pt continues to yell out for help. when asking patient what she needs, pt states that she wants to get up. staff attempts to reposition and reorient pt, ineffective. pt asssited to bsc with no results, bladder scan done at 174 ml. 0030 pt yelling out for help at this time. pt states that she is in intermediate and needs to go talk to her parents. when staff attempts to reorient pt, pt is argumentative and states that we are not at [facility], we are in her home and she was born here. pt demands to be taken out of bed. pt threatens staff and states she will scream and report us all for holding her hostage. fluids and snack attempted, ineffective. 0145 pt screaming that she demands to be removed from the bed. pt assisted to bsc again and incontinent, bladder scanned for 450 prior to pt voiding in attends, rescanned at 240 ml. assisted back to bed. 0215 pt screaming for help and that she needs to get out of the bed now. pt assisted to recliner and taken out to nurses station with staff. 0230 pt upset that she is in recliner and states that she is painful while sitting there. she demands to be taken back to her room so she can get herself ready for the day. she refuses to get back into bed or sit in recliner. pt wanting to walk around in room alone. staff explains to pt that she is [facility] for therapy and pt refuses to believe staff. 0310 pt assisted back to room and dressed with staff assist. pt assisted back into bed with call light in reach and PA attached.
[2019-04-23 05:41] LABS: Absolute Lymphocyte Count 2.16 X10^3/uL (0.83-4.51); Absolute Neutrophil Count 2.9 X10^3/uL (2.0-7.7); Basophil# 0.02 X10^3/uL; Basophil% 0.3 % (0-1); Eosinophil# 0.21 X10^3/uL; Eosinophils% 3.6 % (0-5); Hematocrit 30.3 % (37-47); Hemoglobin 9.6 g/dL (12.0-15.0); Lymphocyte # 2.16 X10^3/ul (4.0); Lymphocyte % 36.9 % (19-41); Mean Corp Hgb Conc 31.7 g/dL (32-36); Mean Corpuscular Hgb 28.9 pg (27.0-32.0); Mean Corpuscular Volume 91.3 fL (81-99); Mean Platelet Vol. 9.6 fl (6.2-12.0); Monocyte# 0.58 X10^3/uL; Monocyte% 9.9 % (0-10); NRBC Flagged by Analyzer 0 % (0-5); Neutrophil # 2.87 X10^3/uL (2.7-7.7); Platelet Count 328 K/mm3 (150-450); RBC Distribution Width CV 16.6 % (11.6-14.6); RBC Distribution Width SD 55.6 fl (35.1-43.9); Red Blood Count 3.32 M/mm3 (4.2-5.4); White Blood Count 5.9 K/mm3 (4.4-11.0)
[2019-04-23] MEDS: Enoxaparin 40 MG/0.4 ML Syringe SC (06:15)
[2019-04-23] MEDS: Capsaicin 0.025% 1 APPLIC Tube TOPICAL ×3 (06:16→19:51)
[2019-04-23 06:23] LABS: Anion Gap 4 (5-15); BUN 34 mg/dL (7-18); BUN/Creat Ratio 43.2 RATIO (10-20); Calcium,Total 8.6 mg/dL (8.5-10.1); Chloride 107 mmol/L (98-107); Creatinine, Serum 0.79 mg/dL (0.55-1.02); EST Glomerular Filtration Rate 75 mL/min (>60); Est Glom Filt Rate - Afr Amer 90 mL/min (>60); Estimated Creatinine Clearance 33.86 ml/min; Glucose 85 mg/dL (74-106); Phosphorus 2.9 mg/dL (2.5-4.9); Potassium 4.1 mmol/L (3.5-5.1); Sodium Level 139 mmol/L (136-145)
[2019-04-23 06:38] VITALS: O2SAT 98
[2019-04-23 07:44] VITALS: BP 122/54; PULSE 61; RESP 16; TEMP 36.4; O2SAT 98
[2019-04-23] MEDS: Lidocaine 5% Patch 1 PATCH TOPICAL (07:55)
[2019-04-23] MEDS: dilTIAZem CD 120 MG Capsule PO ×2 (07:57→19:49)
[2019-04-23] MEDS: NYSTATIN 500,000 UNIT/5 ML UDC 500000 UNIT PO ×4 (07:57→19:50)
[2019-04-23] MEDS: Calcium Carb/Vitamin D 1 TABLET Tablet PO (07:57)
[2019-04-23] MEDS: Aspirin E.C. 81 MG Tablet PO (07:57)
[2019-04-23] MEDS: Carvedilol 6.25 MG Tablet PO ×2 (07:57→19:48)
[2019-04-23] MEDS: Doxazosin 1 MG Tablet 2 MG PO ×2 (07:58→19:48)
[2019-04-23] MEDS: Cefadroxil 500 MG CAPSULE PO ×2 (08:04→19:49)
[2019-04-23] MEDS: Allopurinol 100 MG Tablet PO (08:04)
[2019-04-23] MEDS: Saliva Substitute 237 ML BOTTLE 15 ML MM (08:18)
[2019-04-23 09:08] LABS: T4 Total, Thyroxin 7.4 ug/dL (4.8-13.9); Thyroid Stim Hormone (TSH) 6.74 uIU/mL (0.358-3.74)
[2019-04-23 09:20] VITALS: O2SAT 92
[2019-04-23] MEDS: QUEtiapine 25 MG Tablet 12.5 MG PO (11:27)
[2019-04-23] MEDS: Pantoprazole Sodium 40 MG Tablet PO (11:27)
--- NOTE | 2019-04-23 12:00 | NURSING ---
Refused IV placement x several attempts. Patient had been agitated and upset with staff. Dr. Chapa aware. Nursing will retry later.
[2019-04-23 13:29] VITALS: BMI 28.4
[2019-04-23 16:05] VITALS: O2SAT 95
--- NOTE | 2019-04-23 17:00 | NURSING ---
Patient reported to daughter that she had been asking for help for 3 hours and that she had her light on 3 times and no one has assisted her. This nurse spoke to daughter and explained that she has been having hallucinations and that these allegations are not true. This nurse explained the new medication order Serogiselal that Dr. Chapa ordered and the use and purpose of this medication. Daughter receptive to conversation. FERRYBOAT OPERATOR HELPER did hourly rounds at this time. Patient denied any needs. Will monitor.
--- NOTE | 2019-04-23 18:39 | PCM.PN.BLA ---
Progress Note She had a bad night last night. She did not sleep and she is constantly on the call light and can't decide what she wants. She is very confused and she is hallucinating. She is AF and the VS are stable. She is 94-98% on a 2 LPM NC. I reviewed the lab today and the BUN/creat ratio is 43.2. BUN/CREAT is 34/0.79 HGB is 9.6 and the WBC is noraml with a normal diff. UA had 0 WBC's. She is being irritated with the nurses and refused to let them start an IV. MM are dry She looks fatigued Lungs are CTA Heart has a RRR, no gallop and no rub, denies CP and denies SOB abd - will not let me examine.....not visibly distended no peripheral edema Not wanting to do therapy due to being very tired and she requires a lot of coaxing no rashes Impressions 1. Acute delirium with hallucinations. No obvious infection and she is afebrile with a NL WBC count and NL diff. UA is clean. Denies BILLY. I suspect the delirium is related to stroke, sleep deprivation and dehydration. The HGB did drop a little and the BUN is increased out of proportion to the CREAT so will check a Hemoccult stool to make sure she is not having a GIB. Start Protonix for prophylaxis.......if the hemoccult is negative transition to a H2 wanda. Hold the Remeron for now and start Seroquel at HS 25mg. Give 1 dose of Seroquel 12.5 now for agitation and order Haldol 1 mg IM Q 4 H PRN severe agitation. IV NS 2 liters......if she will let nursing start an IV. 2. Hemorrhagic R thalamic CVA Code Visit Inpatient E&M: 16166 Subs Hosp L2
[2019-04-23 19:38] VITALS: BP 139/66; PULSE 77; RESP 18; TEMP 36.8; O2SAT 91
[2019-04-23 19:42] VITALS: BMI 28.4
--- NOTE | 2019-04-23 19:44 | NURSING ---
Pt refused IV through night, but said she would get IV fluids during the day 04/24.
[2019-04-23] MEDS: clonazePAM 0.5 MG Tablet 1 MG PO (19:45)
[2019-04-23] MEDS: QUEtiapine 25 MG Tablet PO (19:47)
[2019-04-23] MEDS: Magnesium Oxide 400 MG Tablet 1200 MG PO (19:49)
[2019-04-23 19:50] VITALS: O2SAT 91
--- NOTE | 2019-04-24 04:07 | NURSING ---
Pt was trying to get out of bed. Personal alarm was going off. Pt had leg out of bed and foot on floor, and other leg over mattress. BUSINESS EDITOR Maulik came in room and attempt to get Pt back to bed, Pt foot slipped and Pt was lowered to floor.
[2019-04-24] MEDS: Lactated Ringers 1,000 ML 75 ML IV ×2 (04:24→16:40)
[2019-04-24] MEDS: Capsaicin 0.025% 1 APPLIC Tube TOPICAL ×3 (04:30→20:14)
[2019-04-24] MEDS: Enoxaparin 40 MG/0.4 ML Syringe SC (04:30)
[2019-04-24 08:02] VITALS: BP 127/55; PULSE 67; RESP 18; TEMP 36.6; O2SAT 97
[2019-04-24] MEDS: Calcium Carb/Vitamin D 1 TABLET Tablet PO (08:03)
[2019-04-24] MEDS: Aspirin E.C. 81 MG Tablet PO (08:04)
[2019-04-24] MEDS: Allopurinol 100 MG Tablet PO (08:04)
[2019-04-24] MEDS: Carvedilol 6.25 MG Tablet PO ×2 (08:04→20:13)
[2019-04-24] MEDS: Doxazosin 1 MG Tablet 2 MG PO ×2 (08:04→20:13)
[2019-04-24] MEDS: dilTIAZem CD 120 MG Capsule PO ×2 (08:04→20:12)
[2019-04-24] MEDS: Pantoprazole Sodium 40 MG Tablet PO (08:04)
[2019-04-24] MEDS: Cefadroxil 500 MG CAPSULE PO ×2 (08:04→20:13)
[2019-04-24] MEDS: NYSTATIN 500,000 UNIT/5 ML UDC 500000 UNIT PO ×4 (08:17→20:13)
[2019-04-24] MEDS: Lidocaine 5% Patch 1 PATCH TOPICAL (08:18)
[2019-04-24 09:39] VITALS: O2SAT 98
[2019-04-24 10:00] VITALS: O2SAT 94
[2019-04-24 13:41] VITALS: O2SAT 97
[2019-04-24 13:48] VITALS: BMI 28.4
--- NOTE | 2019-04-24 15:40 | CASEMGMT ---
Social Work Dtr contacted SW to discuss patient's current therapy status and DC plans. Explained patient requiring Aby Lift x2 to transfer currently. Dtr understandable pt may not be appropriate for [facility] and will be looking into SNFs. Explained insurance coverage in SNF and educated to Medicare.gov for facilities. Dtr will tour facilities this weekend and provide SW with list of places to refer at Team Saturday. Will continue to follow. Tala Alejandro MSW PAPER WINDER
[2019-04-24] MEDS: clonazePAM 0.5 MG Tablet 1 MG PO (20:11)
[2019-04-24] MEDS: Magnesium Oxide 400 MG Tablet 1200 MG PO (20:13)
[2019-04-24] MEDS: QUEtiapine 25 MG Tablet PO (20:14)
[2019-04-24 20:25] VITALS: BP 135/57; PULSE 73; RESP 18; TEMP 36.6; O2SAT 100
[2019-04-24 23:54] VITALS: BMI 28.4
[2019-04-25] MEDS: Haloperidol Lactate 5 MG/ML Vial 1 MG IM (02:30)
--- NOTE | 2019-04-25 02:33 | NURSING ---
pt yelling out multiple times this shift. pt yelling at stating that she is seeing her . pt claims that she needs to get out of bed to go see her . pt unable to reorient at this time. pt getting agitated with staff- stating that staff is lying to her regarding her being in the room. pt states there are people in her bed. fluids given, 1:1 attention, toileting attempted. interventions ineffective. 1 mg IM haldol given to buttock. pt tolerated well.
[2019-04-25] MEDS: Enoxaparin 40 MG/0.4 ML Syringe SC (05:00)
[2019-04-25] MEDS: Capsaicin 0.025% 1 APPLIC Tube TOPICAL ×3 (05:01→20:43)
[2019-04-25] MEDS: 0.9% Saline Lock 10 ML Syringe IV (06:51)
--- NOTE | 2019-04-25 08:41 | NURSING ---
am meds held at this time, pt sleeping.
[2019-04-25 09:25] VITALS: BP 141/69; PULSE 72; RESP 18; TEMP 36.8; O2SAT 98
[2019-04-25] MEDS: Lidocaine 5% Patch 1 PATCH TOPICAL (10:54)
[2019-04-25] MEDS: NYSTATIN 500,000 UNIT/5 ML UDC 500000 UNIT PO ×4 (10:54→20:50)
[2019-04-25] MEDS: Calcium Carb/Vitamin D 1 TABLET Tablet PO (10:54)
[2019-04-25] MEDS: Carvedilol 6.25 MG Tablet PO ×2 (10:55→20:50)
[2019-04-25] MEDS: dilTIAZem CD 120 MG Capsule PO ×2 (10:55→20:51)
[2019-04-25] MEDS: Doxazosin 1 MG Tablet 2 MG PO ×2 (10:55→20:51)
[2019-04-25] MEDS: Aspirin E.C. 81 MG Tablet PO (10:55)
[2019-04-25] MEDS: Pantoprazole Sodium 40 MG Tablet PO (10:55)
[2019-04-25] MEDS: Allopurinol 100 MG Tablet PO (10:55)
--- NOTE | 2019-04-25 10:58 | NURSING ---
pt just woke up, did not fall asleep until 0500 this am
[2019-04-25 11:40] VITALS: BMI 28.4
--- NOTE | 2019-04-25 16:00 | PCM.PN.HOSP ---
Patient Problems: Active and Suspected Problems (Last Reviewed 04/17/19 @ 10:45 by Francine Chapa DO) Hemorrhagic cerebrovascular accident (CVA) (Acute) Right thalamus 04/08/2019 Complicated UTI (urinary tract infection) (Acute) Dysphagia (Acute) History of polymyalgia rheumatica (Acute) Reason for Visit: ICH Subjective: Feels fine currently. Wants IV out. Doesn't want haloperidol because it did not let her sleep. Still with left arm weakness, but improving. Vitals/I&O's: Vital Signs Temp Pulse Resp BP Pulse Ox 36.8 C 72 18 141/69 H 98 04/25/19 09:25 04/25/19 09:25 04/25/19 09:25 04/25/19 09:25 04/25/19 09:25 Oxygen Flow Rate (L/min) 2 Oxygen Delivery Method Nasal Cannula Weight: 64.1 kg Body Mass Index (BMI) 28.4 Finger Stick Blood Glucose 111 Intake and Output for Last 24 Hours 04/23/19 04/24/19 04/25/19 23:59 23:59 23:59 Intake Total 1325 / 1325 3803.5 / 3803.5 1960 / 1960 Output Total 1050 / 1050 500 / 500 300 / 300 Balance 275 / 275 3303.5 / 3303.5 1660 / 1660 General: Oriented x3, No apparent distress HEENT: Atraumatic, PERRLA, EOMI Oral: Moist Mucosa, No Gingival or Mucosal Lesions/ Ulcerations Neck: No Nodes, Trachea Midline Lungs: Clear to auscultation, Normal air movement, No rhonchi, No wheeze Cardiovascular: Regular rate, Regular Rhythm, Normal S1, Normal S2 Abdomen: Bowel Sounds Present, Soft, Non Tender, Non-Distended Extremities: No edema, No Calf Tenderness Musculoskeletal: No Tenderness to Palpation of Joints or Extremities, No Muscle Wasting Neurological: - - MS 4/5 in LUE Psych/Mental Status: Flat Affect Microbiology Past 72 Hours 04/22/19 17:31 Urine, Clean Catch Urine Culture - Final Culture exhibits no growth. 04/23/19 14:45 Stool Stool Occult Blood (SOBIA) - Final Current Medications Acetaminophen (Tylenol) 650 mg PO Q6H PRN PRN PRN Reason: pain or fever Last Admin: 04/23/19 01:10 Dose: 650 mg Documented by: Al Hydroxide/Mg Hydroxide (Mylanta Ii) 30 ml PO Q6H PRN PRN PRN Reason: HEARTBURN OR INDIGESTION Last Admin: 04/22/19 12:50 Dose: 30 ml Documented by: Albuterol Sulfate (Ventolin Aerosols) 2.5 mg INHALATION Q2H PRN PRN PRN Reason: wheezing or SOB [facility] Last Admin: 04/25/19 10:55 Dose: 100 mg Documented by: Aspirin (Ecotrin) [facility] Last Admin: 04/25/19 10:55 Dose: 81 mg Documented by: Bisacodyl (Dulcolax) 10 mg RECTAL .PRN X 1 PRN PRN Reason: Constipation Calcium/Vitamin D (Os-Wiliam 500mg + D) [facility] Last Admin: 04/25/19 10:54 Dose: 1 tablet Documented by: Capsaicin (Zostrix) 1 applic TOPICAL TID [facility] Last Admin: 04/25/19 14:05 Dose: 1 applicatio Documented by: Carvedilol (Coreg) 6.25 mg PO BID [facility] Last Admin: 04/25/19 10:55 Dose: 6.25 mg Documented by: Cholecalciferol (Vitamin D) 1,000 unit PO DAILY [facility] Last Admin: 04/25/19 10:55 Dose: 1,000 unit Documented by: Clonazepam (Klonopin) 1 mg PO DAILY@1900 [facility] Last Admin: 04/24/19 20:11 Dose: 1 mg Documented by: Diltiazem HCl (Cardizem Cd) 120 mg PO BID [facility] Last Admin: 04/25/19 10:55 Dose: 120 mg Documented by: Doxazosin Mesylate (Cardura) 2 mg PO BID [facility] Last Admin: 04/25/19 10:55 Dose: 2 mg Documented by: Enoxaparin Sodium (Lovenox) 40 mg SC DAILY@0600 [facility] Last Admin: 04/25/19 05:00 Dose: 40 mg Documented by: Haloperidol Lactate (Haldol) 1 mg IM Q4H PRN PRN PRN Reason: AGITATION Last Admin: 04/25/19 02:30 Dose: 1 mg Documented by: Lidocaine (Lidoderm Patch) 1 patch TOPICAL DAILY [facility]; Protocol Last Admin: 04/25/19 10:54 Dose: 1 patch Documented by: Magnesium Hydroxide (Milk Of Magnesia) 30 ml PO .PRN X 1 PRN PRN Reason: Constipation Magnesium Oxide (Mag-Ox 400) 1,200 mg PO QHS [facility] Last Admin: 04/24/19 20:13 Dose: 1,200 mg Documented by: Melatonin (Melatonin) 3 mg PO QHS [facility] Last Admin: 04/24/19 20:13 Dose: 3 mg Documented by: Nystatin (Nystatin) 500,000 unit PO 4X/DAY [facility] Last Admin: 04/25/19 14:04 Dose: 500,000 unit Documented by: Pantoprazole Sodium (Protonix) 40 mg PO DAILY [facility] Last Admin: 04/25/19 10:55 Dose: 40 mg Documented by: Quetiapine Fumarate (Seroquel) 25 mg PO QHS [facility] Last Admin: 04/24/19 20:14 Dose: 25 mg Documented by: Saliva Substitute (Biotene) 15 ml MM 5X/DAY PRN PRN Reason: DRY MOUTH Last Admin: 04/23/19 08:18 Dose: 15 ml Documented by: Senna/Docusate Sodium (Senokot-S, Yuliya-Colace) 2 tablet PO BID [facility] Last Admin: 04/25/19 10:56 Dose: Not Given Documented by: Throat Lozenges (Cepacol Sore Throat Lozenge) 1 lozenge MUCOUS MEM Q2H PRN PRN PRN Reason: SORE THROAT Thyroid (Nature-Throid) 48.75 mg PO DAILY [facility] Last Admin: 04/25/19 10:56 Dose: 48.75 mg Documented by: Medical Necessity - Tobacco Use Smoking Status: Never smoker Tobacco Use: Non-smoker Assessment/Plan All Active Problems (Last Reviewed 04/17/19 @ 10:45 by Francine Chapa DO) Hemorrhagic cerebrovascular accident (CVA) (Acute) Complicated UTI (urinary tract infection) (Acute) Dysphagia (Acute) History of polymyalgia rheumatica (Acute) Hypoxemia (Resolved) Nonspecific abnormal unspecified cardiovascular function study (Resolved) Dextrocardia (Ruled-out) Assessment 1. CVA 2. Debility 3. Delirium 4. inclusion body myositis plan: CHAPARRO nrsg, patient delirous this AM, so continue w PRN haloperidol Remove IV VTE proph: LMWH Code Visit Inpatient E&M: 80596 Subs Hosp L2
[2019-04-25 16:30] VITALS: O2SAT 92
--- NOTE | 2019-04-25 19:00 | NURSING ---
pt refusing klonopin at this time. i would really like to take it at bedtime and its not bedtime for me
[2019-04-25 19:25] VITALS: BP 133/59; PULSE 87; RESP 20; TEMP 37.1; O2SAT 96
[2019-04-25] MEDS: Saliva Substitute 237 ML BOTTLE 15 ML MM (20:47)
[2019-04-25] MEDS: QUEtiapine 25 MG Tablet PO (20:49)
[2019-04-25] MEDS: Magnesium Oxide 400 MG Tablet 1200 MG PO (20:50)
[2019-04-25] MEDS: clonazePAM 0.5 MG Tablet 1 MG PO (20:53)
[2019-04-25 21:03] VITALS: BMI 28.4
[2019-04-26] MEDS: Capsaicin 0.025% 1 APPLIC Tube TOPICAL ×3 (05:08→21:13)
[2019-04-26] MEDS: Enoxaparin 40 MG/0.4 ML Syringe SC (05:08)
[2019-04-26] MEDS: Aspirin E.C. 81 MG Tablet PO (07:57)
[2019-04-26] MEDS: Calcium Carb/Vitamin D 1 TABLET Tablet PO (07:57)
[2019-04-26] MEDS: Allopurinol 100 MG Tablet PO (07:57)
[2019-04-26 09:50] VITALS: BP 118/60; PULSE 70; RESP 18; TEMP 36.7; O2SAT 96
[2019-04-26 10:00] VITALS: RESP 20
[2019-04-26] MEDS: Lidocaine 5% Patch 1 PATCH TOPICAL (10:09)
[2019-04-26] MEDS: Doxazosin 1 MG Tablet 2 MG PO ×2 (10:12→21:09)
[2019-04-26] MEDS: dilTIAZem CD 120 MG Capsule PO ×2 (10:13→21:09)
[2019-04-26] MEDS: Carvedilol 6.25 MG Tablet PO ×2 (10:14→21:10)
[2019-04-26] MEDS: NYSTATIN 500,000 UNIT/5 ML UDC 500000 UNIT PO ×4 (10:14→21:09)
[2019-04-26] MEDS: Pantoprazole Sodium 40 MG Tablet PO (10:15)
[2019-04-26 16:22] VITALS: BMI 28.4
[2019-04-26 19:46] VITALS: BP 123/51; PULSE 72; RESP 15; TEMP 36.2; O2SAT 92
[2019-04-26 19:50] VITALS: PULSE 72; RESP 14; O2SAT 92; BMI 28.4
[2019-04-26] MEDS: Magnesium Oxide 400 MG Tablet 1200 MG PO (21:09)
[2019-04-26] MEDS: clonazePAM 0.5 MG Tablet 1 MG PO (21:09)
[2019-04-26] MEDS: QUEtiapine 25 MG Tablet PO (21:10)
--- NOTE | 2019-04-27 03:39 | NURSING ---
pt awake and yelling, for assistance. pt found with leg over the edge of the bed stating that she had been awake and yelling for 4 hours for someone to assist her. pt had been sleeping previously and had been documented on previous rounds. pt stated that she was trying to get into the other room to pray and thought she saw her there, then couldn't get to him. reorientation of pt to time and place ineffective and pt convinced that she had been moved from her room during the night from were she got her pills. pt was noted to be incontinent of urine. staff repositioned pt and ulisses-care given with attends being changed. Spo2 checked and was 98% on 2l/m via n/c. fall stratageties intact with call light in reach
--- NOTE | 2019-04-27 03:45 | NURSING ---
Reviewed and agree with HAND BINDER CUTTER documentation and charting.
--- NOTE | 2019-04-27 04:08 | NURSING ---
04:00 - pt used call light appropriately to call staff to room. Pt states she wants to move to that other bed and insists that she is in a different bed than the one she got meds earlier in. Pt could not be convinced that the bed she was in is the only bed she has been in and that this was her own private room. Pt states she needs to get ready for therapy and staff reoriented to time of day. Staff reassured pt that staff will assist pt with a.m. ADLs at appropriate time for early a.m. meds and in time for breakfast. Pt provided drink of water after following [facility]WP oral care. Will continue to monitor.
[2019-04-27] MEDS: Enoxaparin 40 MG/0.4 ML Syringe SC (04:50)
[2019-04-27] MEDS: Capsaicin 0.025% 1 APPLIC Tube TOPICAL ×3 (04:50→19:49)
[2019-04-27 06:45] VITALS: O2SAT 95
[2019-04-27 07:49] VITALS: BP 134/49; PULSE 68; RESP 20; TEMP 36.8; O2SAT 98
[2019-04-27] MEDS: Lidocaine 5% Patch 1 PATCH TOPICAL (07:52)
[2019-04-27] MEDS: Calcium Carb/Vitamin D 1 TABLET Tablet PO (07:53)
[2019-04-27] MEDS: Allopurinol 100 MG Tablet PO (07:53)
[2019-04-27] MEDS: Doxazosin 1 MG Tablet 2 MG PO ×2 (07:53→20:59)
[2019-04-27] MEDS: dilTIAZem CD 120 MG Capsule PO ×2 (07:53→20:58)
[2019-04-27] MEDS: Pantoprazole Sodium 40 MG Tablet PO (07:53)
[2019-04-27] MEDS: Aspirin E.C. 81 MG Tablet PO (07:53)
[2019-04-27] MEDS: Carvedilol 6.25 MG Tablet PO ×2 (07:53→20:59)
[2019-04-27] MEDS: Saliva Substitute 237 ML BOTTLE 15 ML MM (07:57)
[2019-04-27 08:00] VITALS: O2SAT 94
[2019-04-27] MEDS: NYSTATIN 500,000 UNIT/5 ML UDC 500000 UNIT PO ×4 (11:03→21:00)
--- NOTE | 2019-04-27 11:38 | CASEMGMT ---
Addendum entered by Tala Alejandro 04/27/19 13:54: [facility] is out of network for pt. Notified dtr. Original Note: Social Work IDT met with patient and daughter for Team Meeting. Discussed patient's progress with therapy. Pt is mod-max x1 or min x2 for transfers, and standing in parallel bars has walked full length of // bars. Left arm dragging, which pt is aware of, left leg can drag at times and therapists assists. Pt is mod x2 for shower transfer, max to total assist for ADLs for thoroughness, but has improved. Pt is mech soft, nectar thick with cues and supervision with meals. ST continuing to work in swallowing exercises and plan fora repeat MBS. St working on cognition, memory, safety reasoning. Pt is confused, has hallucinations, mainly at night, trying to gt out of bed and is agitated. Nursing uses mod-max x2 for stand pivot transfers. Pt has O2 on at night and while in bed, but can be on room air during the day when up. Physician started pt on Seroquel and plans to increase does. Nursing to change pt's room to closer to nurses stations for pt safety. Explained insurance updat 04/27 and continued stay is not guaranteed. Met with separately whom is requesting referral to [facility] and [facility], as pt is not safe to return to [facility] at this time. Pt is more appropriate for SNF setting. Explained insurance coverage at SNF and requesting auth but may not approve and pt would be private pay. Daughter understands and states pt has the funds. Referrals send to [facility] and [facility]. Will continue to follow. Tala Alejandro, LENNOX SALES FORCE ADMINISTRATOR
--- NOTE | 2019-04-27 13:10 | PCM.PN.BLA ---
Progress Note Patient was seen on team rounds today. Her daughter Kaity was present at rounds. Afebile VSS Maintaining appropriate oxygen saturation on a 2 LPM nasal cannula. At times during the day she is on RA and maintaining an appropriate O2 sat. The O2 is always placed on her at HS and when she gets in bed during the day Oral intake is good Discussed with nursing - she was confused last night and frequently pressing the call light. Continues to have hallucinations. She wanted the IV out and it was discontinued by Dr. Sofia. The hemoccult was negative. Reviewed the PT/OT/ST She is progressing despite c/o fatigue and not sleeping well at night. She has been able to do the 3 hours of therapy required of her in rehab. Medication list reviewed. She is really eating better per her dtr. The only complaint today is fatigue. The worst weakness in the LUE is in the shoulder and Kaity did reveal today that she is known to have a L rotator cuff tear. Denies N/V/abd pain/CP/SOB. Did not mention back pain today. She does tell me that she is still not sleeping as well as she would like and she is aware that she is having hallucinations. She did try to get out of bed last night without ringing her call light. She had 1 dose of Haldol on the 8th for agitation. Alert, smiling at times Lungs - diminished in the bases. Clear after a few deep breaths HRRR, no gallop abd - soft, NT,ND, normal BS's in all quadrants. no peripheral edema Weak on the left side arm > leg - progressing in therapy Impressions 1. 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 acute delirium - most likely due to recent CVA. No infection obvious from lab and PE and she is afebrile. The urine culture had no growth 3. dehydration - oral intake is improving. She had the majority of the 2 L of IV fluids ordered. 4. urine incontinence....new 5. Depression Increase the Seroquel to 37.5 Q HS I do not want to add another drug until we get the delirium under better control. Will add an SSRI or Remeron when she is sleeping at night and the delirum is better controlled. Code Visit Inpatient E&M: 00186 Subs Hosp L2
[2019-04-27] MEDS: Mag Hydrox/Al Hydrox/Simeth 30 ML UDC PO (14:09)
[2019-04-27] MEDS: Acetaminophen 325 MG Tablet 650 MG PO (14:09)
[2019-04-27 14:52] VITALS: BMI 28.4
[2019-04-27 19:35] VITALS: BP 124/54; PULSE 75; RESP 165; TEMP 36.5; O2SAT 97
[2019-04-27] MEDS: clonazePAM 0.5 MG Tablet 1 MG PO (19:41)
[2019-04-27 19:45] VITALS: PULSE 75; RESP 16; O2SAT 97; BMI 28.4
[2019-04-27] MEDS: Magnesium Oxide 400 MG Tablet 1200 MG PO (20:57)
[2019-04-27] MEDS: QUEtiapine 25 MG Tablet 37.5 MG PO (20:58)
--- NOTE | 2019-04-27 21:10 | NURSING ---
pt is alert and oriented x's 3 this hs and was aware that she would be getting a room change as soon as the room was cleaned. pt also remembered that she was getting an increased in her one medication, pt cooperative with staff and care given
--- NOTE | 2019-04-27 23:49 | NURSING ---
clinical findings on pt noted abd to be mildly tender to the touch with bowel sounds present times 4 quads. pt is having some nausea and is passing gas and belching. pt offered more mylanta and pt refused stating that it had not helped. pt had been incontinent of loose stool of yellow color, and with pieces of hernandez colored stool as well. strong odor noted to stool. pt using k-pad for comfort to abd at this time. pt repositioned for comfort in the bed with call light in reach. 2300 pt calling out that she needed help. staff went into assist and pt reports that had wet her attends and couldn't find that call light. call light was found at the [facility]. pt was noted to have been incontinent of yellow stool with hernandez colored pieces again but no urine, pt passed more gas and belched x's 2 and requested an emesis bag, which staff gave her. staf completed changing attends and ulisses-care and ordered benedict for buttocks and rectal area. pt again repositioned to the left side for comfort with call light in reach. abd remains unchanged from previous documentation. pt given reassurance with fair effect. 0000 pt currently laying in previous position with eyes closed and no needs are voiced. call light in reach
[2019-04-28] MEDS: Mag Hydrox/Al Hydrox/Simeth 30 ML UDC PO (01:28)
--- NOTE | 2019-04-28 02:08 | NURSING ---
0130 pt heard yelling out for her parents to come and get her, staff to check on pt and pt was sitting upright in the bed and stated that she needed to pee and felt like she was going to vomit. pt placed on bedpan and had a lg soft non-formed yellow stool with 50cc of urine noted. this is the first pt had voided this shift . pt given mylanta for gas on stomach and bladder scan completed at this time as well and pt was noted to have 596cc in her bladder. pt was then straight cathed for 600cc of dark yellow urine that was clear. pt tolerated procedure well and stated that she felt better afterward. pt continues to pass gas and burping. pt positioned for comfort and call light in reach. staff continues to monitor closely
--- NOTE | 2019-04-28 02:49 | NURSING ---
Reviewed and agree with TEACHER LEARNING DISABLED documentation and charting.
[2019-04-28] MEDS: Enoxaparin 40 MG/0.4 ML Syringe SC (05:12)
[2019-04-28] MEDS: Capsaicin 0.025% 1 APPLIC Tube TOPICAL ×3 (05:12→21:15)
[2019-04-28 05:43] LABS: Absolute Lymphocyte Count 1.25 X10^3/uL (0.83-4.51); Absolute Neutrophil Count 3.7 X10^3/uL (2.0-7.7); Basophil# 0.02 X10^3/uL; Basophil% 0.4 % (0-1); Eosinophil# 0.13 X10^3/uL; Eosinophils% 2.3 % (0-5); Hematocrit 31.4 % (37-47); Hemoglobin 9.8 g/dL (12.0-15.0); Lymphocyte # 1.25 X10^3/ul (4.0); Lymphocyte % 22.2 % (19-41); Mean Corp Hgb Conc 31.2 g/dL (32-36); Mean Corpuscular Hgb 29.2 pg (27.0-32.0); Mean Corpuscular Volume 93.5 fL (81-99); Monocyte# 0.55 X10^3/uL; Monocyte% 9.8 % (0-10); NRBC Flagged by Analyzer 0 % (0-5); Neutrophil # 3.66 X10^3/uL (2.7-7.7); Neutrophil % 64.9 % (47-70); Platelet Count 282 K/mm3 (150-450); RBC Distribution Width CV 17.2 % (11.6-14.6); RBC Distribution Width SD 58.3 fl (35.1-43.9); Red Blood Count 3.36 M/mm3 (4.2-5.4); White Blood Count 5.6 K/mm3 (4.4-11.0)
[2019-04-28 06:12] LABS: Anion Gap 5 (5-15); BUN 23 mg/dL (7-18); BUN/Creat Ratio 30.1 RATIO (10-20); Calcium,Total 8.6 mg/dL (8.5-10.1); Chloride 108 mmol/L (98-107); Creatinine, Serum 0.76 mg/dL (0.55-1.02); EST Glomerular Filtration Rate 77 mL/min (>60); Est Glom Filt Rate - Afr Amer 93 mL/min (>60); Estimated Creatinine Clearance 33.86 ml/min; Glucose 95 mg/dL (74-106); Potassium 4.3 mmol/L (3.5-5.1); Sodium Level 144 mmol/L (136-145)
[2019-04-28 06:56] VITALS: O2SAT 94
[2019-04-28 07:00] VITALS: BP 140/59; PULSE 78; RESP 16; TEMP 36.8; O2SAT 96
--- NOTE | 2019-04-28 07:05 | NURSING ---
THERAPY WAS ASSISTING PT WITH ADLs WHEN PT C/O FEELING NAUSEATED. THERAPY CALLED STAFF FOR ASSISTANCE WHEN PT VOMITTED AND HAD DIARRHEA. CLEAR VOMIT WITH SOME UNDIGESTED FOOD WAS IN EMESIS. PT STATES SHE HASN'T FELT RIGHT SINCE EATING A [employer] SANDWICH DURING THE DAY.
[2019-04-28] MEDS: Doxazosin 1 MG Tablet 2 MG PO ×2 (08:36→21:16)
[2019-04-28] MEDS: Aspirin E.C. 81 MG Tablet PO (08:36)
[2019-04-28] MEDS: Pantoprazole Sodium 40 MG Tablet PO (08:36)
[2019-04-28] MEDS: Calcium Carb/Vitamin D 1 TABLET Tablet PO (08:36)
[2019-04-28] MEDS: Carvedilol 6.25 MG Tablet PO ×2 (08:36→21:16)
[2019-04-28] MEDS: Allopurinol 100 MG Tablet PO (08:36)
[2019-04-28] MEDS: Lidocaine 5% Patch 1 PATCH TOPICAL (08:37)
[2019-04-28] MEDS: dilTIAZem CD 120 MG Capsule PO ×2 (08:37→21:16)
[2019-04-28] MEDS: NYSTATIN 500,000 UNIT/5 ML UDC 500000 UNIT PO ×4 (08:37→21:18)
[2019-04-28] MEDS: Menthol/Lanolin/Calamine/Znox 113 GM Tube 1 APPLIC TOPICAL ×2 (08:39→21:18)
[2019-04-28 10:23] VITALS: BMI 28.4
[2019-04-28 12:30] VITALS: O2SAT 88
[2019-04-28 13:00] VITALS: O2SAT 95
[2019-04-28] MEDS: Loperamide 2 MG Capsule PO (13:23)
--- NOTE | 2019-04-28 15:34 | CASEMGMT ---
Social Work Kellie Vasquez reviewed pt's information and would to complete onsite 04/30 with pt. After onsite, will officially accept/denial. Spoke with pt's dtr and notified her of above. Will continue to follow. Tala Alejandro, LOG OPERATIONS COORDINATOR RIVET CATCHER
[2019-04-28 19:31] VITALS: BP 149/70; PULSE 68; RESP 18; TEMP 36.8; O2SAT 93
[2019-04-28 21:00] VITALS: PULSE 68; RESP 18; O2SAT 93
[2019-04-28] MEDS: QUEtiapine 25 MG Tablet 37.5 MG PO (21:16)
[2019-04-28] MEDS: Magnesium Oxide 400 MG Tablet 1200 MG PO (21:16)
[2019-04-28] MEDS: clonazePAM 0.5 MG Tablet 1 MG PO (21:17)
[2019-04-28 21:21] VITALS: BMI 28.4
--- NOTE | 2019-04-28 22:10 | NURSING ---
Pt called overheard calling out for Luz. Staff entered room to inquire of needs. Pt states she is uncomfortable on this mattress and her daughter bought her a new mattress that's in the other room. Pt requests having another bed because she is just uncomfortable. Staff has repositioned pt numerous times and made sure all needs have been met before departing room. Pt denies needs at this moment after staff assists with another position change.
--- NOTE | 2019-04-29 00:31 | NURSING ---
pt yelling out for son britta and banging call light on the bed rail wanting to get oob, stating her son is in from [place] and she needs to go upstairs to get to her bed. pt is convinced that she is in her [facility] and needs to go home. staff tried to reorient her to time and place and in doing so pt will agree with you, then wants you to call 911 to get someone to help her leave. pt redirected with tv, snack and po fluids, with little effect. reassurance given with little effect with pt stating that staff would be held responsible if anything happen. pt had been sleeping quietly prior to this with call light in reach and fall strategies intact.
--- NOTE | 2019-04-29 00:42 | NURSING ---
Pt continues to press call light and state that she does not feel safe. Pt reassured that the exit door is locked and staff is doing everything to ensure safety of pts. Pt continued rant of Get someone to help. Pt told that staff is here to help and what did she need? Pt states that she Needs to get out of here! Let me get on the floor! Staff continued to try to reason and reassure pt. Nurse held pt hand, making eye contact, and stated that staff is staying right outside the doorway so pt can rest assured we are doing everything to be readily available. Pt smiled and told this nurse that she loved me and doesn't need anything right now.
[2019-04-29] MEDS: Haloperidol Lactate 5 MG/ML Vial 1 MG IM (00:52)
--- NOTE | 2019-04-29 01:10 | NURSING ---
pt agitation increased and haldol given as per order. will continue to monitor pt. 0110 received call from daughter that pt had called and wanted someone to take up to her room so that she could sleep. staff reassured daughter that we had been with pt for that last hour trying to convince her that she was safe and were she needed to be. pt had also told daughter that no one had been helping her at all . staff told daughter that haldol had been given do to increasing agitiation. daughter recommended that we try to put up phone from pt so that she calls no one else. 0115 staff to check on pt and staff told pt that her daughter had called and wanted her to sleep and pt response was well she didnt tell me that. staff encouraged pt to put up phone and offered po fluids which pt accepted. staff continues to try to redirect pt with little effect. pt refused to put up phone and was trying to call some one when staff tried to discourage her from calling reorienting pt to time. pt refused to give up phone and stated would you treat your family this way? rn made aware of pt statement and behavior.
--- NOTE | 2019-04-29 01:22 | NURSING ---
Staff providing 1:1 monitoring. Pt found with cell phone in bed and attempting to call Liam. Pt states she is in the [facility] and needs to get out of here and get into the hospital. Pt reoriented but insists on being in the hospital, where she was , where her family was . Cell phone taken from pt and put at bedside. Staff attempts to inform pt that it is 01:20 and people are trying to sleep. Pt repositioned in bed to pts preference. Pt fidgeting with blankets. Staff will sit at bedside in hopes of reassurance as pt puts electronic console display operator light as soon as staff departs.
--- NOTE | 2019-04-29 01:58 | NURSING ---
staff monitoring pt 1:1. pt stated to this RN that when her son hears about this he is going to make a law suit and take us all to court because he has a lot of money. Then pt reiterated that there is still a chance to help pt to get out of here and get her to the hospital.
[2019-04-29] MEDS: Acetaminophen 325 MG Tablet 650 MG PO (03:12)
[2019-04-29] MEDS: Capsaicin 0.025% 1 APPLIC Tube TOPICAL ×3 (03:12→19:50)
--- NOTE | 2019-04-29 03:16 | NURSING ---
Staff provided shower to pt in hopes the warm water will help relax pt as pt is still wide awake and making threats. Pt telling staff that she prays staff will never have a stroke but maybe if we did, we would know how to be treated. Pt is accusing staff of holding her against her will and that we fail to have compassion, as staff attempts to meet every need. Pt continues to make threats of a law suit.
--- NOTE | 2019-04-29 03:24 | NURSING ---
0300 pt remains awakes and requesting to go upstairs to her bed . pt states that everything feels numb. pt offered to get into the shower and agreed to this. pt washes 25% of body with staff completing the rest. pt demanding that water temperature be correct and that we washed her well. pt continued that her son would be here and adams the staff, he is rich and works for a big [employer] that buys up companies for a living. pt conversation redirected to more pleasant topic. pt returned to bed and pt states that she is tired and hurting, pt offered tylenol and was given as per order and zostrix then applied to her back. pt repositioned for comfort as per her request and k-pad applied to her back. pt states that she is tired but wont be able sleep. pt remains a 1:1 for safety.
--- NOTE | 2019-04-29 04:12 | NURSING ---
Reviewed and agree with PATIENT RELATIONS COORDINATOR documentation and charting.
[2019-04-29] MEDS: Aspirin E.C. 81 MG Tablet PO (08:12)
[2019-04-29] MEDS: Calcium Carb/Vitamin D 1 TABLET Tablet PO (08:12)
[2019-04-29] MEDS: NYSTATIN 500,000 UNIT/5 ML UDC 500000 UNIT PO ×4 (08:12→19:50)
[2019-04-29] MEDS: Allopurinol 100 MG Tablet PO (08:12)
[2019-04-29] MEDS: Enoxaparin 40 MG/0.4 ML Syringe SC (08:12)
[2019-04-29] MEDS: Lidocaine 5% Patch 1 PATCH TOPICAL (08:12)
[2019-04-29] MEDS: Pantoprazole Sodium 40 MG Tablet PO (08:12)
[2019-04-29] MEDS: Doxazosin 1 MG Tablet 2 MG PO ×2 (08:12→19:49)
[2019-04-29] MEDS: Carvedilol 6.25 MG Tablet PO ×2 (08:13→19:49)
[2019-04-29] MEDS: dilTIAZem CD 120 MG Capsule PO ×2 (08:13→19:49)
[2019-04-29] MEDS: Menthol/Lanolin/Calamine/Znox 113 GM Tube 1 APPLIC TOPICAL ×2 (08:14→19:48)
[2019-04-29 09:22] VITALS: BP 142/55; PULSE 63; RESP 16; TEMP 36.6; O2SAT 93
[2019-04-29 11:40] VITALS: BMI 28.4
[2019-04-29] MEDS: QUEtiapine 25 MG Tablet 50 MG PO (19:48)
[2019-04-29] MEDS: clonazePAM 0.5 MG Tablet 1 MG PO (19:48)
[2019-04-29] MEDS: Magnesium Oxide 400 MG Tablet 1200 MG PO (19:49)
[2019-04-29 20:03] VITALS: BP 154/43; PULSE 67; RESP 18; TEMP 36.7; O2SAT 94
--- NOTE | 2019-04-29 20:30 | NURSING ---
PT PUTS GROUP LEADER SEMICONDUCTOR PROCESSING LIGHT AND REPORTS TO FEEL SHORT OF BREATH. PULSE OX OBTAINED-SEE VITAL SIGNS. LUNG SOUNDS ARE WITH COURSE CRACKLES LOWER 2/3 UP BILAT POSTERIORLY. RESP APPEAR UNLABORED. COLOR PINK. SKIN IS WARM AND DRY. PT TALKS EASILY. O2 INCREASED TO 2 LPM PER N/C WITH RELIEF OF SHORTNESS OF BREATH. PT FEELS IT MAY BE CAUSED FROM ANXIETY. PT PLACED ON HER BACK. PT APPEARS RELAXED NOW.
[2019-04-29 20:34] VITALS: PULSE 70; RESP 16; O2SAT 95
[2019-04-29 22:33] VITALS: BMI 28.4
--- NOTE | 2019-04-30 00:13 | NURSING ---
REVIEWED AND AGREE WITH BATTERY FILLER'S FUNCTIONAL ASSESSMENT AND HANDOFF CHARTING.
[2019-04-30] MEDS: Haloperidol Lactate 5 MG/ML Vial 1 MG IM (01:42)
--- NOTE | 2019-04-30 01:50 | NURSING ---
pt yelling and screaming at 0130. pt confused and argumentative with attempted reorientation. pt offered fluids, toileting and repositioning. all interventions ineffective at this time. pt still remains agitated. 1 mg IM Haldol given per order to R buttock. pt tolerated well. PA in place, call light within reach.
[2019-04-30] MEDS: Acetaminophen 325 MG Tablet 650 MG PO (04:33)
[2019-04-30] MEDS: Enoxaparin 40 MG/0.4 ML Syringe SC (05:02)
[2019-04-30] MEDS: Capsaicin 0.025% 1 APPLIC Tube TOPICAL ×2 (05:04→08:22)
--- NOTE | 2019-04-30 06:16 | NURSING ---
0300 pt continues to yell out and become agitated with staff. pt repositioned and fluids given. pt accepting of change. pt rests for a short time. pt then becomes agitated and continues to yell out and uses call light. pt demands to be taken downstairs so she can visit with friends. pt remains agitated until this time.
[2019-04-30 06:32] VITALS: O2SAT 96
--- NOTE | 2019-04-30 06:45 | NURSING ---
PT BECOMES NAUSEOUS AND WEAK WHILE SITTING ON SHOWER BENCH WITH THERAPIST. PT REMAINS COMMUNICATIVE. PT ASSISTED BACK TO BED. VITAL SIGNS OBTAINED.
[2019-04-30 06:56] VITALS: BP 119/61; PULSE 69
--- NOTE | 2019-04-30 07:00 | NURSING ---
CALL PLACED TO HOSPITALIST PT DOES NOT HAVE MEDICATION FOR NAUSEA.
--- NOTE | 2019-04-30 07:09 | NURSING ---
PT RESTING QUIETLY IN BED. REPORTS TO FEEL BETTER. MILD NAUSEA ONLY NOW.
[2019-04-30 08:05] VITALS: BP 133/57; PULSE 75; RESP 18; TEMP 36.8; O2SAT 95
[2019-04-30] MEDS: Lidocaine 5% Patch 1 PATCH TOPICAL (08:19)
[2019-04-30] MEDS: Senna/Docusate Sodium 1 Tablet 2 TABLET PO (08:20)
[2019-04-30] MEDS: Aspirin E.C. 81 MG Tablet PO (08:21)
[2019-04-30] MEDS: dilTIAZem CD 120 MG Capsule PO (08:21)
[2019-04-30] MEDS: Pantoprazole Sodium 40 MG Tablet PO (08:21)
[2019-04-30] MEDS: Allopurinol 100 MG Tablet PO (08:21)
[2019-04-30] MEDS: NYSTATIN 500,000 UNIT/5 ML UDC 500000 UNIT PO (08:21)
[2019-04-30] MEDS: Doxazosin 1 MG Tablet 2 MG PO (08:21)
[2019-04-30] MEDS: Calcium Carb/Vitamin D 1 TABLET Tablet PO (08:21)
[2019-04-30] MEDS: Carvedilol 6.25 MG Tablet PO (08:21)
--- NOTE | 2019-04-30 08:48 | PN_ITS ---
Progress Note Afebile VSS Maintaining appropriate oxygen saturation on a 2 L nasal cannula. Oral intake is good Discussed with nursing - Pt slept from 8 PM until 2 AM and then awoke and was confused and agitated. She received 1 mg of IM haldolamd had less agitation but was up most of the night after 2 AM. Today she is calm and appropriate. Reviewed the PT/OT/ST notes Medication list reviewed. She continues to c/o feeling tired and she is also c/o SOB today which is new. The SOB does not get worse when lying down and she has it all the time, worse with exertion. She had an emesis 2 days ago. She is not coughing. She is afebrile. alert, NAD, eating her breakfast. lungs - diffuse coarse crackles in all lungs feliciano. Mild conversational dy spnea or accessory muscle use. She has limited inspiratory effort due to myopathy/myositis. Denies CP. H-RRR, no gallop abd - soft, mildly distended and tympanic, normal BS's, NT no edema Impressions 1. SOB with mild respiratory distress - possible aspiration PNA vs. CHF? Last ECHO was in 2011 and the EF was good but, she has myositis and myopathy so this may have changed. CBC with diff, BMP, BNP, CRP PA and LAT CXR now. STROKE Vital Signs/Narrative: Vital Signs Temp Pulse Resp BP Pulse Ox 04/30/19 08:05 98.2 F 75 18 133/57 H 95 04/30/19 06:56 69 119/61 04/30/19 06:32 96
--- NOTE | 2019-04-30 08:50 | RAD_ITS ---
STUDY: X-RAY CHEST REASON FOR EXAM: Female, 78 years old. Crackles posterior lobes TECHNIQUE: AP and lateral views of the chest. COMPARISON: Comparison is made with prior examination dated April 17, 2019. FINDINGS: Limited inspiratory effort. At this time, there is evidence of increased interstitial markings with areas of confluence in the lower lobes. The differential diagnosis to consider should include either CHF or bilateral early infiltrates. Radiographic follow-up is recommended. There is no demonstrated pleural abnormality. Sternal cerclage wires and vascular clips are present from a prior sternotomy and coronary artery bypass graft procedure (CABG). Normal mediastinum and sylvia. Normal visualized pulmonary arteries. There is atherosclerotic calcification of the aortic arch with tortuosity. There are diffuse degenerative changes of the visualized thoracic spine. Increased thoracic kyphosis. Normal visualized ribs, clavicles, and shoulders. There is no demonstrated abnormality of the visualized soft tissue structures of the upper abdomen. RAD/Chest PA and Lateral IMPRESSION: Increased interstitial markings in both lungs with areas of confluence. The differential diagnosis should include CHF versus bilateral infiltrates. Follow-up is recommended. Electronically Signed: Wilian Roman, at 10:20 EST , Service support ,
[2019-04-30 09:24] LABS: Absolute Lymphocyte Count 1.22 X10^3/uL (0.83-4.51); Absolute Neutrophil Count 4.7 X10^3/uL (2.0-7.7); Basophil# 0.01 X10^3/uL; Basophil% 0.2 % (0-1); Eosinophil# 0.15 X10^3/uL; Eosinophils% 2.3 % (0-5); Hematocrit 32.4 % (37-47); Hemoglobin 10.2 g/dL (12.0-15.0); Lymphocyte # 1.22 X10^3/ul (4.0); Lymphocyte % 18.5 % (19-41); Mean Corp Hgb Conc 31.5 g/dL (32-36); Mean Corpuscular Hgb 29.8 pg (27.0-32.0); Mean Corpuscular Volume 94.7 fL (81-99); Mean Platelet Vol. 10.5 fl (6.2-12.0); Monocyte# 0.51 X10^3/uL; Monocyte% 7.7 % (0-10); NRBC Flagged by Analyzer 0 % (0-5); Neutrophil # 4.69 X10^3/uL (2.7-7.7); Platelet Count 277 K/mm3 (150-450); RBC Distribution Width CV 17.3 % (11.6-14.6); RBC Distribution Width SD 60.1 fl (35.1-43.9); Red Blood Count 3.42 M/mm3 (4.2-5.4); White Blood Count 6.6 K/mm3 (4.4-11.0)
[2019-04-30 09:40] LABS: Anion Gap 3 (5-15); BUN 19 mg/dL (7-18); BUN/Creat Ratio 24.1 RATIO (10-20); Calcium,Total 8.7 mg/dL (8.5-10.1); Chloride 107 mmol/L (98-107); Creatinine, Serum 0.79 mg/dL (0.55-1.02); EST Glomerular Filtration Rate 74 mL/min (>60); Est Glom Filt Rate - Afr Amer 90 mL/min (>60); Estimated Creatinine Clearance 33.86 ml/min; Glucose 95 mg/dL (74-106); Potassium 4.3 mmol/L (3.5-5.1); Sodium Level 141 mmol/L (136-145)
[2019-04-30 09:46] LABS: CPK Total, Creatine Kinase 43 U/L (26-192)
[2019-04-30 09:50] LABS: BNP,B-Type NATRIURETIC PEPTIDE 178.7 pg/mL (0-100)
--- NOTE | 2019-04-30 10:34 | PCM.DC.SUM ---
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 04/08/2019 Complicated UTI (urinary tract infection) (Acute) Dysphagia (Acute) History of polymyalgia rheumatica (Acute) Date of Admission: 04/16/19 Date of Discharge: 04/30/19 - Primary Discharge Diagnosis Active and Suspected Problems (Last Reviewed 04/17/19 @ 10:45 by Francine Chapa DO) Aspiration PNA Debility due to Hemorrhagic cerebrovascular accident (CVA) (recent) Right thalamus 04/08/2019 Complicated UTI present at admission - resolved Dehydration - improved urine incontinence - since the stroke Delirium/sundowning - acute since the stroke Dysphagia - Secondary Discharge Diagnosis Chronic Problems (Last Reviewed 04/17/19 @ 10:45 by Francine Chapa DO) Hypertension (Chronic) Hypothyroidism (Chronic) Gout (Chronic) Chronic hypoxemic respiratory failure (Chronic) on Oxygen Chronic diastolic (congestive) heart failure (Chronic) Anxiety (Chronic) On clonazepam Overweight (BMI 25.0-29.9) (Chronic) Spinal stenosis (Chronic) Restrictive lung disease (Chronic) Severe Atherosclerosis of coronary artery of [place] heart without angina pectoris (Chronic) CABG x 2: DEVRIES-LCx, PJ-D1 10/04/2010 H/O coronary artery bypass surgery (Chronic 10/04/10) CABG x 2: DEVRIES-LCx, PJ-D1 10/04/2010 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 Stable study in the interval. Electronically Signed: Emily Sheppard MD at 4:12 EST , Service support , Chest X-Ray 04/30/19 08:50 IMPRESSION: Increased interstitial markings in both lungs with areas of confluence. The differential diagnosis should include CHF versus bilateral infiltrates. Follow-up is recommended. Electronically Signed: Wilian Roman, at 10:20 EST , Service support , Laboratory Results - last 24 hr 04/30/19 04/30/19 04/30/19 09:04 09:04 09:04 WBC 6.6 RBC 3.42 L Hgb 10.2 L Hct 32.4 L MCV 94.7 MCH 29.8 MCHC 31.5 L RDW Std Deviation 60.1 H RDW Coeff of Darrell 17.3 H Plt Count 277 MPV 10.5 Immature Gran % (Auto) 0.300 Neut % (Auto) 71.0 H Lymph % (Auto) 18.5 L Pine % (Auto) 7.7 Eos % (Auto) 2.3 Baso % (Auto) 0.2 Absolute Neuts (auto) 4.7 Absolute Lymphs (auto) 1.22 Nucleated RBC % 0 Sodium 141 Potassium 4.3 Chloride 107 Carbon Dioxide 31.0 Anion Gap 3 L BUN 19 H Creatinine 0.79 Estim Creat Clear Calc 33.86 Est GFR (MDRD) Af Amer 90 Est GFR (MDRD) Non-Af 74 BUN/Creatinine Ratio 24.1 H Glucose 95 Calcium 8.7 Total Creatine Kinase C-React Prot Ext Range B-Natriuretic Peptide 178.7 H 04/30/19 09:10 WBC RBC Hgb Hct MCV MCH MCHC RDW Std Deviation RDW Coeff of Darrell Plt Count MPV Immature Gran % (Auto) Neut % (Auto) Lymph % (Auto) Pine % (Auto) Eos % (Auto) Baso % (Auto) Absolute Neuts (auto) Absolute Lymphs (auto) Nucleated RBC % Sodium Potassium Chloride Carbon Dioxide Anion Gap BUN Creatinine Estim Creat Clear Calc Est GFR (MDRD) Af Amer Est GFR (MDRD) Non-Af BUN/Creatinine Ratio Glucose Calcium Total Creatine Kinase 43 C-React Prot Ext Range 14.10 H B-Natriuretic Peptide Microbiology 04/22/19 17:31 Urine, Clean Catch Urine Culture - Final Culture exhibits no growth. 04/23/19 14:45 Stool Stool Occult Blood (SOBIA) - Final negative none Operations: None Procedures: None Summary of Care Provided: The pt is a 78-year-old female with a PMH of essential hypertension, hypothyroidism, coronary artery disease with history of CABG, inclusion body myositis, chronic diastolic congestive heart failure, chronic hypoxic respiratory failure on home O2, anxiety and chronic benzodiazepine use admitted to the Inpatient rehab unit at [facility] on 04/16/2019 for debility secondary to right thalamic hemorrhagic CVA on 04/08/2019 for greater than 3 hours of therapy daily with a goal of returning home at or near prior level of independence. A CTA of the head and neck done at [facility] showed severe stenosis versus occlusion of the right [employer] P1 and proximal P2 segments with reconstitution distally. There was moderate focal stenosis of the left MCA proximal M2 segment and mild focal stenosis of the right MCA distal M1 segment. The patient lives at a retirement. Prior to the CVA she was walking with a front wheeled walker independently for short distance but relied on a wheelchair for longer distances. While at the [facility] she had a [place] catheter for 48 hours and then developed a complicated UTI and was placed on Bactrim. Results of urine culture were obtained and the pt was transitioned to a cephalosporin which she has finished. Follow-up urine analysis on 04/22/2019 was negative for pyuria. Urine culture had no growth. An Echocardiogram, which was a poor study due to poor windows, at [facility] showed a 55% left ventricular ejection fraction with no wall motion abnormalities. Agitated saline x2 was suboptimal. Her last Echocardiogram at [facility] was in 2011 and it showed normal left ventricular size with normal left ventricular systolic function and an EF of 60%. Pulmonary function tests done at [facility] on 07/12/2014 showed severe restrictive ventilatory defect with a symmetric reduction in diffusion capacity consistent with an interstitial lung disease. She also has restriction due to chronically weak respiratory muscles due to inclusion body myositis. She has dysphagia and oral intake was initially poor because she does not like thickened liquids. The lab on 04/23/19 showed and increased BUN at 34 with a creatinine of 0.76 and a BUN/creatinine ratio of 30.1. Her lungs were clear to auscultation but her mucous membranes were markedly dry. IV NS was started at 70 cc/hr and she received most of 2 L before she demanded it be taken out. Lasix was held (she had been on 20 mg PO daily). On 06/11/19 when the IV was discontinued the lungs were CTA. She had persistent delirium in the rehab unit and was started on Seroquel. Klonopin has been decreased to 0.5 mg Q HS and since Benzodiazepines in the elderly contribute to confusion and increased morbidity and mortality this should be tapered off slowly. She had 50 mg of Seroquel at night on 04/29/2019 and she slept from 8 PM to 2 AM soundly. She awoke at 2 AM and was agitated and confused and had 1 mg of Haldol IM and was less agitated but was unable to go back to sleep. She has no delirium during the day. On 04/30/19 she c/o SOB which was new for her. The SOB was not increased with lying down. She had emesis a few days ago and this has since resolved. On auscultation she had coarse crackles in all lung feliciano and no wheezes. SShe had no crackles at admission to the rehab unit. She had no peripheral edema. She was sent for a PA and Lat CXR and this showed diffuse infiltrates vs CHF. Stat lab showed an increasing white blood cell count at 6.6 with 71% neutrophils. On 04/23/2019 she only had 49% neutrophils. The hemoglobin is stable at 10.2 and the platelet count was 277,000. The BMP showed normal electrolytes and the BUN was 19 with a creatinine of 0.79 which is stable. The BUN/creatinine ratio is still 24.1 but this is down from 43 on 04/23/2019. The estimated creatinine clearance is stable at 34. The BNP was 178 and while this is elevated it is not high enough to make me think she has purely diastolic CHF given her Creat clear of only 34. At 08:30 she did not have conversational dyspnea and by 10:30 she had conversational dyspnea sitting in her chair. She had no accessory muscle use. Given that she has inclusion body myositis, severe restrictive lung disease, generalized weakness and recent CVA I think it saha that she be transferred to the acute side of the hospital for IV antibiotics, pulmonary consult, possible cardiology consult and more intensive care to stabilize her. The pt was agreeable to this and so was her dtr Kaity. Dr. Cobian was contacted and will be accepting the transfer to PCU at [facility]. I reviewed the code status with them and she is to remain a DNR CCA. Prior to transfer she was given 4.5 GM of Zosyn and 20 mg of IV Lasix. Alert and oriented x3 Lungs-coarse crackles throughout all lung feliciano, no wheezing, no rhonchi. There is symmetric chest expansion. She has conversational dyspnea but no accessory muscle use Heart-regular rate and rhythm, no murmur, no gallop, no rub Abdomen-soft, nontender, nondistended, bowel sounds in all quadrants were heard No peripheral edema This note was generated with Blaze dictation software. It may contain incorrect words, spelling, and punctuation that were not noted in checking the note before signing. Patient Problems: Active and Suspected Problems (Last Reviewed 04/17/19 @ 10:45 by Francine Chapa DO) Hemorrhagic cerebrovascular accident (CVA) (Acute) Right thalamus 04/08/2019 Complicated UTI (urinary tract infection) (Acute) Dysphagia (Acute) History of polymyalgia rheumatica (Acute) - Physical Exam Vitals/I&O's: Vital Signs Temp Pulse Resp BP Pulse Ox 98.2 F 75 18 133/57 H 95 04/30/19 08:05 04/30/19 08:05 04/30/19 08:05 04/30/19 08:05 04/30/19 08:05 Oxygen Flow Rate (L/min) 2 Oxygen Delivery Method Nasal Cannula Weight: 142 lb 10.225 oz Body Mass Index (BMI) 28.4 Finger Stick Blood Glucose 111 Intake and Output for Last 24 Hours 04/28/19 04/29/19 04/30/19 23:59 23:59 23:59 Intake Total 1200 / 1200 1960 / 1960 340 / 340 Output Total 1090 / 1090 1402 / 1402 Balance 110 / 110 558 / 558 340 / 340 Laboratory Results 04/30/19 09:04: WBC 6.6, RBC 3.42 L, Hgb 10.2 L, Hct 32.4 L, MCV 94.7, MCH 29.8, MCHC 31.5 L, RDW Std Deviation 60.1 H, RDW Coeff of Darrell 17.3 H, Plt Count 277, MPV 10.5, Immature Gran % (Auto) 0.300, Neut % (Auto) 71.0 H, Lymph % (Auto) 18.5 L, Pine % (Auto) 7.7, Eos % (Auto) 2.3, Baso % (Auto) 0.2, Absolute Neuts (auto) 4.7, Absolute Lymphs (auto) 1.22, Nucleated RBC % 0 04/30/19 09:04: Sodium 141, Potassium 4.3, Chloride 107, Carbon Dioxide 31.0, Anion Gap 3 L, BUN 19 H, Creatinine 0.79, Estim Creat Clear Calc 33.86, Est GFR (MDRD) Af Amer 90, Est GFR (MDRD) Non-Af 74, BUN/Creatinine Ratio 24.1 H, Glucose 95, Calcium 8.7 04/30/19 09:04: B-Natriuretic Peptide 178.7 H 04/30/19 09:10: Total Creatine Kinase 43, C-React Prot Ext Range 14.10 H Current Medications Acetaminophen (Tylenol) 650 mg PO Q6H PRN PRN PRN Reason: pain or fever Last Admin: 04/30/19 04:33 Dose: 650 mg Documented by: Al Hydroxide/Mg Hydroxide (Mylanta Ii) 30 ml PO Q6H PRN PRN PRN Reason: HEARTBURN OR INDIGESTION Last Admin: 04/28/19 01:28 Dose: 30 ml Documented by: Albuterol Sulfate (Ventolin Aerosols) 2.5 mg INHALATION Q2H PRN PRN PRN Reason: wheezing or SOB [facility] Last Admin: 04/30/19 08:21 Dose: 100 mg Documented by: Aspirin (Ecotrin) [facility] Last Admin: 04/30/19 08:21 Dose: 81 mg Documented by: Bisacodyl (Dulcolax) 10 mg RECTAL .PRN X 1 PRN PRN Reason: Constipation Calamine/Phenol (Calmoseptine Ointment) 1 applic TOPICAL BID [facility]; Protocol Last Admin: 04/29/19 19:48 Dose: 1 applicatio Documented by: Calcium/Vitamin D (Os-Wiliam 500mg + D) [facility] Last Admin: 04/30/19 08:21 Dose: 1 tablet Documented by: Capsaicin (Zostrix) 1 applic TOPICAL TID [facility] Last Admin: 04/30/19 08:22 Dose: 1 applicatio Documented by: Carvedilol (Coreg) 6.25 mg PO BID [facility] Last Admin: 04/30/19 08:21 Dose: 6.25 mg Documented by: Cholecalciferol (Vitamin D) 1,000 unit PO DAILY [facility] Last Admin: 04/30/19 08:20 Dose: 1,000 unit Documented by: Clonazepam (Klonopin) 0.5 mg PO DAILY@1900 [facility] Diltiazem HCl (Cardizem Cd) 120 mg PO BID [facility] Last Admin: 04/30/19 08:21 Dose: 120 mg Documented by: Doxazosin Mesylate (Cardura) 2 mg PO BID [facility] Last Admin: 04/30/19 08:21 Dose: 2 mg Documented by: Enoxaparin Sodium (Lovenox) 40 mg SC DAILY@0600 [facility] Last Admin: 04/30/19 05:02 Dose: 40 mg Documented by: Haloperidol Lactate (Haldol) 2 mg IM Q4H PRN PRN PRN Reason: AGITATION Piperacillin Sod/Tazobactam (Sod 4.5 gm/ Sodium Chloride) 100 mls @ 200 mls/hr IV X1 ONE Stop: 04/30/19 10:59 Lactobacillus Acidophilus (Acidophilus) 1 tablet PO TID [facility] Lidocaine (Lidoderm Patch) 1 patch TOPICAL DAILY [facility]; Protocol Last Admin: 04/30/19 08:19 Dose: 1 patch Documented by: Loperamide HCl (Imodium) 2 mg PO Q4H PRN PRN PRN Reason: Diarrhea Last Admin: 04/28/19 13:23 Dose: 2 mg Documented by: Magnesium Hydroxide (Milk Of Magnesia) 30 ml PO .PRN X 1 PRN PRN Reason: Constipation Magnesium Oxide (Mag-Ox 400) 1,200 mg PO QHS [facility] Last Admin: 04/29/19 19:49 Dose: 1,200 mg Documented by: Melatonin (Melatonin) 3 mg PO QHS [facility] Last Admin: 04/29/19 19:50 Dose: 3 mg Documented by: Nystatin (Nystatin) 500,000 unit PO 4X/DAY [facility] Last Admin: 04/30/19 08:21 Dose: 500,000 unit Documented by: Pantoprazole Sodium (Protonix) 40 mg PO DAILY [facility] Last Admin: 04/30/19 08:21 Dose: 40 mg Documented by: Quetiapine Fumarate (Seroquel) 50 mg PO QHS@2100 [facility] Saliva Substitute (Biotene) 15 ml MM 5X/DAY PRN PRN Reason: DRY MOUTH Last Admin: 04/27/19 07:57 Dose: 15 ml Documented by: Senna/Docusate Sodium (Senokot-S, Yuliya-Colace) 2 tablet PO BID [facility] Last Admin: 04/30/19 08:20 Dose: 2 tablet Documented by: Throat Lozenges (Cepacol Sore Throat Lozenge) 1 lozenge MUCOUS MEM Q2H PRN PRN PRN Reason: SORE THROAT Thyroid (Nature-Throid) 48.75 mg PO DAILY [facility] Last Admin: 04/30/19 08:23 Dose: 48.75 mg Documented by: Home Medications: Medications to take at Discharge Aspirin E.C. [Ecotrin] 81 mg PO DAILY 10/28/14 Calcium Carbonate/Vitamin D3 [Calcium 500 mg Chewable Tablet] 1 tab PO DAILY 10/28/14 Cholecalciferol (VIT D3) [Vitamin D3] 1,000 unit PO DAILY 10/28/14 Clonazepam [Klonopin] 1 mg PO QHS 10/28/14 Multivitamins,Therapeutic [Multivitamin] 1 tab PO DAILY 10/28/14 Potassium 99 mg PO DAILY 10/28/14 allopurinol 100 mg tablet 100 mg PO DAILY tab 06/06/17 [place] Thyroid 0.45 mg PO DAILY 01/28/18 magnesium oxide 500 mg capsule 500 mg PO DAILY cap 01/28/18 Benzocaine/Menthol [Cepacol Sore Throat Lozenge] 1 lozenger PO Q2H PRN PRN 04/16/19 Capsaicin 1 applicatio TOPICAL TID 04/16/19 Carvedilol 1 tab PO BID 04/16/19 Cinnamon Bark [Cinnamon] 1,000 mg PO DAILY 04/16/19 Diltiazem HCl [Cardizem Cd] 120 mg PO BID 04/16/19 Doxazosin Mesylate 2 mg PO BID 04/16/19 Furosemide [Lasix] 20 mg PO DAILY 04/16/19 Heparin 5 Unit/5 ml (1/ml) Syr 5,000 units SQ TID 04/16/19 Lidocaine [Salonpas] 1 patch TOPICAL DAILY 04/16/19 Melatonin 9 mg PO QHS 04/16/19 Smz/Tmp Ds [Bactrim Ds] 1 tab PO BID 04/16/19 Tylenol 650 mg PO Q6H PRN PRN 04/16/19 Primary Care Physician: Tamera Zepeda NP-C [Primary Care Provider] - Disposition: Acute care Hospital Minutes spent on discharge:: 50 Medical Necessity - Tobacco Use Smoking Status: Never smoker Tobacco Use: Non-smoker Meaningful Use Info Meaningful Use Diagnoses (Choose all that apply): Hemorrhagic CVA - CVA Therapy Assessed for PT,OT and/or ST?: Yes Code Visit Inpatient E&M: [id number] Disch Hosp
[2019-04-30] MEDS: Menthol/Lanolin/Calamine/Znox 113 GM Tube 1 APPLIC TOPICAL (11:06)
[2019-04-30 11:13] LABS: Lactic Acid 1.3 mmol/L (0.4-1.9)
[2019-04-30 11:15] VITALS: BMI 28.4
[2019-04-30] MEDS: Furosemide 20 MG/2 ML VIAL IV (11:41)
[2019-04-30] MEDS: 0.9% Normal Saline 1,000 ML 15 ML IV (11:43)
--- NOTE | 2019-04-30 11:52 | NURSING ---
Discharged to PCU at this time, report given, daughter notified.
== END 2019-04-30 11:54 | disposition short-term general hospital (02) | DRG 57 ==
PROVIDERS: Admitting Provider Internal Medicine; PCP Nurse Practitioner Primary Care; Referring Provider Internal Medicine; Visit Provider Internal Medicine
DX: I69.354 Hemiplegia and hemiparesis following cerebral infarction affecting left non-dominant side (principal); I13.0 Hypertensive heart and chronic kidney disease with heart failure and stage 1 through stage 4 chronic kidney disease, or unspecified chronic kidney disease; I50.32 Chronic diastolic (congestive) heart failure; J96.11 Chronic respiratory failure with hypoxia; I69.391 Dysphagia following cerebral infarction; I69.311 Memory deficit following cerebral infarction; R13.10 Dysphagia, unspecified; E03.9 Hypothyroidism, unspecified; I25.10 Atherosclerotic heart disease of native coronary artery without angina pectoris; Z99.81 Dependence on supplemental oxygen; M35.3 Polymyalgia rheumatica; F41.9 Anxiety disorder, unspecified; M10.9 Gout, unspecified; M19.90 Unspecified osteoarthritis, unspecified site; J45.909 Unspecified asthma, uncomplicated; G72.41 Inclusion body myositis [IBM]; N30.90 Cystitis, unspecified without hematuria; I69.392 Facial weakness following cerebral infarction; F32.9 Major depressive disorder, single episode, unspecified; M75.102 Unspecified rotator cuff tear or rupture of left shoulder, not specified as traumatic
CPT/HCPCS: 36415; 71046; 80048; 80053; 81001; 82274; 82306; 82550; 83605; 83735; 83880; 84100; 84436; 84443; 84550; 85025; 85652; 86140; 87086; 92507; 92526; 92610; 94667; 94668; 97110; 97112; 97116; 97140; 97162; 97166; 97530; 97535; 97802; 99251; J7030; J7120; A4216; G0463; J1940

== ENCOUNTER 2019-04-30 12:13 | Inpatient (IN) | payer MEDICARE, SELFPAY ==
[2019-04-30] VITALS (9 sets, daily range): BP systolic 118–126; BP diastolic 59–76; PULSE 59–70; RESP 14–18; TEMP 36.6–37; O2SAT 93–98; BMI 28.4; BMI 28.0
--- NOTE | 2019-04-30 13:13 | PCM.HP.STD ---
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: Right thalamus 04/08/2019 (2) Hypertension Status: Chronic (3) Hypothyroidism Status: Chronic (4) Gout Status: Chronic (5) Chronic hypoxemic respiratory failure Status: Chronic (6) Chronic diastolic (congestive) heart failure Status: Chronic (7) Complicated UTI (urinary tract infection) Status: Resolved (8) Anxiety Status: Chronic Comment: On clonazepam (9) Dysphagia Status: Acute (10) Overweight (BMI 25.0-29.9) Status: Chronic (11) Spinal stenosis Status: Chronic (12) Restrictive lung disease Status: Chronic Comment: Severe (13) History of polymyalgia rheumatica Status: Chronic (14) Atherosclerosis of coronary artery of [place] heart without angina pectoris Status: Chronic Comment: CABG x 2: DEVRIES-LCx, PJ-D1 10/04/2010 (15) H/O coronary artery bypass surgery Status: Chronic Comment: CABG x 2: DEVRIES-LCx, PJ-D1 10/04/2010 (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 The patient is a 78 year old F who presents from rehab unit due to increased shortness of breath. Patient has been in rehab unit for debility following recent hemorrhagic CVA 04/08/2019. Patient reports overall she is doing well at rehab. She has residual left upper extremity weakness. She reports overnight last night she had fairly sudden onset shortness of breath. She denies significant cough. Denies fever, chills. Currently, her biggest complaint is abdominal tenderness and constipation. Denies nausea, vomiting. Denies other current complaints. She has a past medical history of chronic hypoxic respiratory failure, chronic diastolic CHF, anxiety, hypertension, hypothyroidism, restrictive lung disease, history of Radha myalgia rheumatica, inclusive body myositis, CAD with history of CABG. Past Medical History Past Medical History (Chronic Problems): Chronic Problems (Last Reviewed 04/17/19 @ 10:45 by Francine Chapa DO) Hemorrhagic cerebrovascular accident (CVA) (Chronic) Right thalamus 04/08/2019 Hypertension (Chronic) Hypothyroidism (Chronic) Gout (Chronic) Chronic hypoxemic respiratory failure (Chronic) Chronic diastolic (congestive) heart failure (Chronic) Anxiety (Chronic) On clonazepam Overweight (BMI 25.0-29.9) (Chronic) Spinal stenosis (Chronic) Restrictive lung disease (Chronic) Severe History of polymyalgia rheumatica (Chronic) Atherosclerosis of coronary artery of [place] heart without angina pectoris (Chronic) CABG x 2: DEVRIES-LCx, PJ-D1 10/04/2010 H/O coronary artery bypass surgery (Chronic 10/04/10) CABG x 2: DEVRIES-LCx, PJ-D1 10/04/2010 Inclusion body myositis (Chronic) Medical History: Medical History (Last Reviewed 04/17/19 @ 10:45 by Francine Chapa DO) Atherosclerosis of coronary artery of [place] heart without angina pectoris (Chronic) I25.10 CABG x 2: DEVRIES-LCx, PJ-D1 10/04/2010 Inclusion body myositis (Chronic) 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 Asthma J45.909 Chronic respiratory failure with hypoxia J96.11 Due to myositis Obesity E66.9 Osteoarthritis M19.90 Polymyalgia rheumatica M35.3 Spinal stenosis M48.00 Hypoxemia (Resolved) R09.02 Shortness of breath R06.02 Dextrocardia (Ruled-out) Q24.0 Other abnormal heart sounds (Inactive) R01.2 Allergies hydrochlorothiazide Allergy (Verified 01/06/19 12:31) Swelling lisinopril Allergy (Verified 01/06/19 12:31) Swelling codeine Adverse Reaction (Severe, Verified 01/06/19 12:31) Unknown prednisone Adverse Reaction (Severe, Verified 01/06/19 12:31) Unknown paroxetine [From Paxil] Adverse Reaction (Intermediate, Verified 01/06/19 12:31) Agitation amiodarone Adverse Reaction (Verified 01/06/19 12:31) Other i went out of my head Corticosteroids (Glucocorticoids) Adverse Reaction (Verified 01/06/19 12:31) Other hyper diphenhydramine HCl [From Benadryl] Adverse Reaction (Verified 01/06/19 12:31) Other hyper morphine Adverse Reaction (Verified 01/06/19 12:31) Other it just paralyzes me. I will take it if in an end of life situation amlodopine Adverse Reaction (Severe, Uncoded 01/06/19 12:31) Flushing, nervousness Many foods Adverse Reaction (Severe, Uncoded 01/06/19 12:31) Hives Home Medications: Ambulatory Orders Medication Instructions Recorded Aspirin E.C. [Ecotrin] 81 mg PO DAILY 10/28/14 Calcium Carbonate/Vitamin D3 1 tab PO DAILY 10/28/14 [Calcium 500 mg Chewable Tablet] Cholecalciferol (VIT D3) [Vitamin 1,000 unit PO DAILY 10/28/14 D3] Clonazepam [Klonopin] 0.5 mg PO 1900 10/28/14 allopurinol 100 mg tablet 100 mg PO DINNER tab 06/06/17 magnesium oxide 500 mg capsule 1,200 mg PO QHS cap 01/28/18 Benzocaine/Menthol [Cepacol Sore 1 lozenger PO Q2H PRN PRN 04/16/19 Throat Lozenge] Capsaicin 1 applicatio TOPICAL TID 04/16/19 Carvedilol 1 tab PO BID 04/16/19 Diltiazem HCl [Cardizem Cd] 120 mg PO BID 04/16/19 Doxazosin Mesylate 2 mg PO BID 04/16/19 Lidocaine [Salonpas] 1 patch TOPICAL DAILY 04/16/19 Melatonin 3 mg PO QHS 04/16/19 Tylenol 650 mg PO Q6H PRN PRN 04/16/19 Albuterol Aerosols [Ventolin 2.5 mg INHALATION Q2H PRN PRN 04/30/19 Aerosols] Biotene 15 ml MM 5X/DAY 04/30/[address] X1 PRN 04/30/19 Enoxaparin Sodium [Lovenox] 40 mg SQ 0600 04/30/19 Haloperidol [Haldol] 2 mg IM Q4H PRN PRN 04/30/19 Lactobacillus Acidophilus 1 tab PO TID 04/30/19 [Acidophilus] Loperamide [Imodium] 2 mg PO Q4H PRN PRN 04/30/19 Mag Hydrox/Al Hydrox/Simeth 30 ml PO Q6H PRN PRN 04/30/19 [Mylanta II] Magnesium Hydroxide [Milk Of 30 ml PO DAILY PRN PRN 04/30/19 Magnesia] Menthol/Lanolin/Calamine/Znox 1 applic TOPICAL BID 04/30/19 [Calmoseptine Ointment] Nystatin 500,000U/5ML [Mycostatin] 5 ml PO 4X/DAY 04/30/19 Pantoprazole Sodium [Protonix] 40 mg PO DAILY 04/30/19 Quetiapine Fumarate [Seroquel] 50 mg PO 2100 04/30/19 Sennosides/Docusate Sodium 2 tab PO BID 04/30/19 [Senokot-S Tablet] Thyroid,Pork [Nature-Throid] 48.75 mg PO DAILY 04/30/19 Surgical History: Surgical History (Last Reviewed 04/30/19 @ 13:46 by PIPER Cabrera) H/O coronary artery bypass surgery (Chronic) Onset Date: 10/04/10 Z95.1 CABG x 2: DEVRIES-LCx, PJ-D1 10/04/2010 H/O arthroscopic knee surgery Z98.890 History of shoulder surgery Z98.890 History of back surgery Z98.890 History of hysterectomy Z90.710 Surgical History: coronary bypass surgery, total hip arthroplasty Psychiatric History: Anxiety PLY SPLICER History: No pertinent PLY SPLICER history Lives: - - Assisted living facility Smoking Status: Never smoker Alcohol: None Drugs: None - *Family History Maternal Family History: Family History (Last Reviewed 04/30/19 @ 13:47 by PIPER Cabrera) Father CAD (coronary artery disease) Brother Cancer Brother Diabetes History Items: - - Denies known maternal medical history including cardiac history. Paternal Family History: Family History (Last Reviewed 04/30/19 @ 13:47 by PIPER Cabrera) Father CAD (coronary artery disease) Brother Cancer Brother Diabetes Review of Systems Constitutional: Denies: Chills, Fever, Weight Change HEENT: Denies: Head Aches, Sinus Congestion, Sinus Drainage Cardiovascular: Denies: Chest Pain, Palpitations Respiratory: Reports: Shortness of Breath. Denies: Cough, Sputum production Gastrointestinal: Reports: - - Abdominal tenderness, constipation. Denies: Diarrhea, Nausea, Vomiting Genitourinary: Denies: Dysuria Musculoskeletal: Denies: Joint Pain, Joint Tenderness Skin: Denies: Rash, Wounds Neurological: Reports: - - Left upper extremity weakness due to recent CVA. Denies: Focal weakness, Numbness, Tingling Psychiatric: Reports: Anxiety Hematologic/ Lymphatic: Denies: Easy Bruising, Easy Bleeding VTE Information - Inpt Only VTE Present on Admission: No VTE Mechan Device Prophylaxis: None VTE Pharm Prophylaxis ordered?: Yes - Physical Exam Vitals/I&O's: Vital Signs Temp Pulse Resp BP Pulse Ox 98.6 F 65 18 122/62 H 93 04/30/19 12:37 04/30/19 12:37 04/30/19 12:37 04/30/19 12:37 04/30/19 12:37 Oxygen Flow Rate (L/min) 2 Oxygen Delivery Method Nasal Cannula Body Mass Index (BMI) 28.4 Finger Stick Blood Glucose 111 General: Alert, Oriented x3, Cooperative HEENT: Atraumatic, PERRLA, EOMI, Normocephalic Oral: Dry Mucosa Neck: Supple, No JVD, Negative Carotid Bruits Lungs: Diminished, - - Coarse crackles throughout Cardiovascular: Regular rate, No murmurs Abdomen: Bowel Sounds Present, Soft, - - Mild distention, generalized tenderness Extremities: No clubbing, No cyanosis, No edema, Capillary Refill Less than 3 Seconds Skin: No rashes, No breakdown Musculoskeletal: No Tenderness to Palpation of Joints or Extremities Neurological: Cranial nerves II-XII grossly intact, - - Left upper extremity weakness/drift. Mild left lower extremity weakness. Recent CVA. Psych/Mental Status: Normal Affect, Appropriate Current Medications Acetaminophen (Tylenol) 650 mg PO Q6H PRN PRN PRN Reason: Pain Score 1-10/Temp > 100.7 F Albuterol Sulfate (Ventolin Aerosols) 2.5 mg INHALATION Q2H PRN PRN PRN Reason: SHORTNESS OF BREATH Albuterol/Ipratropium (Duoneb) 3 ml INHALATION Q4H.RT ANDRES Dextrose (D50w Syringe) 0 gm IV X1 PRN; Protocol PRN Reason: Hypoglycemia Enoxaparin Sodium (Lovenox) 40 mg SC DAILY ANDRES Glucagon () 1 mg IM .X1 PRN PRN Reason: Hypoglycemia Sodium Chloride () 250 mls @ 15 mls/hr IV .[id number] PRN PRN Reason: Saline Flush Sodium Chloride () 250 mls @ 15 mls/hr IV .[id number] PRN PRN Reason: Additional IVPB Infusion Piperacillin Sod/Tazobactam (Sod 3.375 gm/ Sodium Chloride) 50 mls @ 12.5 mls/hr IV Q8 ANDRES Stop: 05/07/19 14:01 Ondansetron HCl (Zofran) 4 mg IV Q8H PRN PRN PRN Reason: NAUSEA/VOMITING Sodium Chloride () 10 - 40 ml IV UD PRN PRN Reason: SALINE FLUSH Assessment/Plan All Active Problems (Last Reviewed 04/17/19 @ 10:45 by Francine Chapa DO) Dysphagia (Acute) Complicated UTI (urinary tract infection) (Resolved) Hypoxemia (Resolved) Nonspecific abnormal unspecified cardiovascular function study (Resolved) Dextrocardia (Ruled-out) 1. Acute on chronic hypoxic respiratory failure, suspect secondary to aspiration pneumonia vs fluid overload-chest x-ray shows diffuse infiltrates versus CHF. Patient did receive 20 mg IV Lasix at rehab. Initiated on IV Zosyn. Speech therapy consult. Aspiration precautions. Repeat chest x-ray in a.m. Oxygen currently stable on chronic O2 requirements. BNP not significant. No lower extremity swelling. Suspect most likely aspiration PNA. Possible pulmonary consult pending repeat imaging. 2. Constipation-patient reports she has not had a normal bowel movement in several days and reports abdominal discomfort. Obtain abdominal x-ray. Pending results, will proceed with aggressive bowel regimen. 3. Dysphagia, intermittent emesis-speech therapy consult. Will order barium esophagram. 4. Chronic diastolic CHF- Recent echo at [facility] demonstrated an EF of 55%. 5. 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 Plan to return to rehab when stable. 6. Hypertension-stable, continue carvedilol, Cardizem regimen. 7. Hypothyroidism= continue home medication regimen. 8. CAD with history of CABG-continue aspirin, not on statin. 9. Anxiety with chronic benzodiazepine use-home Klonopin regimen decreased 0.5 mg nightly. Initiated on Seroquel 50 mg nightly due to nighttime delirium. PRN Haldol for increased agitation. CODE STATUS: DNR CCA DVT prophylaxis-Lovenox subcu This patient was seen by Tamera Díaz NP-C under the supervision of Dr. Cobian. <John Cobian - Last Filed: 04/30/19 14:56> History of Present Illness The patient is a 78 year old F who is admitted from acute rehab unit for worsening shortness of breath for about 1 day. She was there in rehab after right thalamic hemorrhagic stroke on 04/08/2019. Patient states she was short of breath on exertion during physical therapy yesterday and shortness of breath on laying down, orthopnea yesterday. No leg swelling. Denies fever, chills but she always feels cold. Denies chest pressure or chest pain. No cough, sputum or URI symptoms. Complain of abdominal burping/swelling and constipation. She has a history of inclusion body myositis with weak respiratory muscle and chronic hypoxic respiratory failure. She had PFT done [place] [address] Jo which he states severe restrictive ventilatory defect with a decreased DLCO consistent with interstitial lung disease. She had proximal muscle weakness which then evolved distal muscles and diagnosed inclusion body myositis after muscle biopsy. History of chronic disease status post CABG about 10-11 years ago. 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 Asthma J45.909 Chronic respiratory failure with hypoxia J96.11 Due to myositis Obesity E66.9 Osteoarthritis M19.90 Polymyalgia rheumatica M35.3 Spinal stenosis M48.00 Hypoxemia (Resolved) R09.02 Shortness of breath R06.02 Dextrocardia (Ruled-out) Q24.0 Other abnormal heart sounds (Inactive) R01.2 Allergies hydrochlorothiazide Allergy (Verified 01/06/19 12:31) Swelling lisinopril Allergy (Verified 01/06/19 12:31) Swelling codeine Adverse Reaction (Severe, Verified 01/06/19 12:31) Unknown prednisone Adverse Reaction (Severe, Verified 01/06/19 12:31) Unknown paroxetine [From Paxil] Adverse Reaction (Intermediate, Verified 01/06/19 12:31) Agitation amiodarone Adverse Reaction (Verified 01/06/19 12:31) Other i went out of my head Corticosteroids (Glucocorticoids) Adverse Reaction (Verified 01/06/19 12:31) Other hyper diphenhydramine HCl [From Benadryl] Adverse Reaction (Verified 01/06/19 12:31) Other hyper morphine Adverse Reaction (Verified 01/06/19 12:31) Other it just paralyzes me. I will take it if in an end of life situation amlodopine Adverse Reaction (Severe, Uncoded 01/06/19 12:31) Flushing, nervousness Many foods Adverse Reaction (Severe, Uncoded 01/06/19 12:31) Hives Surgical History: Surgical History (Last Reviewed 04/30/19 @ 13:46 by Tamera Díaz NP-Sallie) H/O coronary artery bypass surgery (Chronic) Onset Date: 10/04/10 Z95.1 CABG x 2: DEVRIES-LCx, PJ-D1 10/04/2010 H/O arthroscopic knee surgery Z98.890 History of shoulder surgery Z98.890 History of back surgery Z98.890 History of hysterectomy Z90.710 - *Family History Maternal Family History: Family History (Last Reviewed 04/30/19 @ 13:47 by PIPER Cabrera) Father CAD (coronary artery disease) Brother Cancer Brother Diabetes Paternal Family History: Family History (Last Reviewed 04/30/19 @ 13:47 by PIPER Cabrera) Father CAD (coronary artery disease) Brother Cancer Brother Diabetes Review of Systems Constitutional: Denies: Chills, Fever, Weight Change HEENT: Denies: Head Aches, Sinus Congestion, Sinus Drainage Cardiovascular: Denies: Chest Pain, Palpitations Respiratory: Reports: Shortness of Breath, Shortness of breath upon exertion. Denies: Cough, Sputum production Gastrointestinal: Reports: - - Abdominal tenderness, constipation Abdominal bloating and mild distention. Denies: Abdominal Pain, Nausea, Vomiting Genitourinary: Denies: Dysuria Musculoskeletal: Denies: Joint Pain, Joint Tenderness Skin: Denies: Rash, Wounds Neurological: Reports: Focal weakness, -. Denies: Numbness, Tingling Psychiatric: Denies: Anxiety, Depression, Homicidal Ideations, Suicidal Ideations Hematologic/ Lymphatic: Denies: Easy Bruising, Easy Bleeding - Physical Exam Vitals/I&O's: Vital Signs Temp Pulse Resp BP Pulse Ox 98.6 F 65 18 122/62 H 93 04/30/19 12:37 04/30/19 12:37 04/30/19 12:37 04/30/19 12:37 04/30/19 12:37 Oxygen Flow Rate (L/min) 2 Oxygen Delivery Method Nasal Cannula Body Mass Index (BMI) 28.4 Finger Stick Blood Glucose 111 General: Alert, Oriented x3, Cooperative HEENT: Atraumatic, PERRLA, EOMI, Normocephalic Oral: No Gingival or Mucosal Lesions/ Ulcerations, Dry Mucosa Neck: Supple, No JVD, Negative Carotid Bruits Lungs: Diminished - Air entry diminished in bilateral lower lobes of lungs, - - Coarse crackles throughout Bilateral lower lobes coarse crackles present. Cardiovascular: Regular rate, Regular Rhythm, Normal S1, Normal S2, No murmurs Abdomen: Bowel Sounds Present, Soft, Non Tender, Tender, - Extremities: No clubbing, No edema, Capillary Refill Less than 3 Seconds Skin: No rashes, No breakdown Musculoskeletal: No Tenderness to Palpation of Joints or Extremities, Arthritic Changes, Muscle Wasting Neurological: Cranial nerves II-XII grossly intact, - - Left upper extremity weakness/drift. Mild left lower extremity weakness. Recent CVA. Left upper extremity weakness and drift. Bilateral lower extremity weakness, left more than right. Psych/Mental Status: Normal Affect, Appropriate Current Medications Acetaminophen (Tylenol) 650 mg PO Q6H PRN PRN PRN Reason: Pain Score 1-10/Temp > 100.7 F Al Hydroxide/Mg Hydroxide (Mylanta Ii) 30 ml PO Q6H PRN PRN PRN Reason: HEARTBURN OR INDIGESTION Albuterol Sulfate (Ventolin Aerosols) 2.5 mg INHALATION Q2H PRN PRN PRN Reason: SHORTNESS OF BREATH Albuterol Sulfate (Ventolin Aerosols) 2.5 mg INHALATION Q2H PRN PRN PRN Reason: wheezing or SOB Albuterol/Ipratropium (Duoneb) 3 ml INHALATION Q4H.RT ANDRES Allopurinol (Zyloprim) 100 mg PO DINNER ANDRES Aspirin (Ecotrin) 81 mg PO DAILY ANDRES Carvedilol (Coreg) 6.25 mg PO BID ANDRES Clonazepam (Klonopin) 0.5 mg PO 1900 ANDRES Dextrose (D50w Syringe) 0 gm IV X1 PRN; Protocol PRN Reason: Hypoglycemia Diltiazem HCl (Cardizem Cd) 120 mg PO BID ANDRES Doxazosin Mesylate (Cardura) 2 mg PO BID ANDRES Enoxaparin Sodium (Lovenox) 40 mg SC DAILY ANDRES Furosemide (Lasix) 40 mg IV X1 ONE Stop: 04/30/19 17:01 Glucagon () 1 mg IM .X1 PRN PRN Reason: Hypoglycemia Haloperidol (Haldol) 2 mg PO Q4H PRN PRN PRN Reason: AGITATION Sodium Chloride () 250 mls @ 15 mls/hr IV .[id number] PRN PRN Reason: Saline Flush Sodium Chloride () 250 mls @ 15 mls/hr IV .[id number] PRN PRN Reason: Additional IVPB Infusion Piperacillin Sod/Tazobactam (Sod 3.375 gm/ Sodium Chloride) 50 mls @ 12.5 mls/hr IV Q8 ANDRES Stop: 05/07/19 14:01 Last Admin: 04/30/19 14:03 Dose: 12.5 mls/hr Documented by: Lidocaine (Lidoderm Patch) 1 patch TOPICAL DAILY [facility] Loperamide HCl (Imodium) 2 mg PO Q4H PRN PRN PRN Reason: Diarrhea Magnesium Hydroxide (Milk Of Magnesia) 30 ml PO DAILY PRN PRN PRN Reason: Constipation Melatonin (Melatonin) 3 mg PO QHS [facility] Nystatin (Nystatin) 500,000 unit PO 4X/DAY ANDRES Ondansetron HCl (Zofran) 4 mg IV Q8H PRN PRN PRN Reason: NAUSEA/VOMITING Last Admin: 04/30/19 13:58 Dose: 4 mg Documented by: Pantoprazole Sodium (Protonix) 40 mg PO DAILY [facility] Quetiapine Fumarate (Seroquel) 50 mg PO QHS [facility] Senna/Docusate Sodium (Senokot-S, Yuliya-Colace) 2 tablet PO BID [facility] Sodium Chloride () 10 - 40 ml IV UD PRN PRN Reason: SALINE FLUSH Thyroid ([place] Thyroid) 45 mg PO DAILY [facility] Assessment/Plan This patient was seen in conjunction with JACQUARD LOOM HEDDLES TIERTamera. I have independently interviewed and examined the patient and reviewed pertinent history, examination findings, laboratory and plan of management. I have reviewed the note and agree with the documented findings with the few additional points. In brief, patient is admitted for acute shortness of breath for about 1 day. Chest x-ray independently reviewed and shows bilateral hilar and infrahilar alveolar congestion with bilateral peripheral and lower lobes reticular changes suggestive of chronic interstitial disease. BNP is slightly elevated but not high. Lasix 40 mg 1 dose given on top of 20 mg IV Lasix for she received in ER. As patient has history of inclusion myositis and weakness of muscle, barium esophagram ordered after discussion with Dr. Chapa. There is suspicion of possible aspiration pneumonia therefore on aspiration precaution along with IV Zosyn. Repeat the chest x-ray. Abdominal x-ray ordered as patient has symptoms of constipation. Possible acute on chronic diastolic heart failure: Recent echo in [place] shows EF 55%. Repeat the chest x-ray tomorrow a.m. Other chronic comorbidities include recent right thalamus hemorrhagic CVA, inclusion body myositis, hypertension, hypothyroidism, coronary artery disease history of CABG, anxiety and mild insomnia: Home medications reconciliation done. CODE STATUS: DNR CC arrest. Discussed with the patient and her daughter today at the bedside. I have discussed my assessment with JACQUARD LOOM HEDDLES [employer] and orders have been reviewed. Code Visit Inpatient E&M: 11839 Init Hosp L3
--- NOTE | 2019-04-30 13:27 | NURSING ---
per pt POA, pt's other children Taty Tena and Avery Pandey may have information on pt
[2019-04-30] MEDS: Ondansetron 4 MG/2 ML Vial IV (13:58)
--- NOTE | 2019-04-30 14:07 | RAD_ITS ---
STUDY: X-RAY - ABDOMEN/PELVIS REASON FOR EXAM: Female, 78 years old. ABDOMINAL DISTENTION TECHNIQUE: AP supine and decubitus views of the abdomen and pelvis. COMPARISON: None. FINDINGS: There are multiple dilated small bowel loops with air-fluid levels. Gas is seen within the distal colon and rectum. This may represent either an incomplete small bowel obstruction or early small bowel obstruction. Follow-up is recommended. There is no demonstrated free abdominal air. The visualized liver, spleen and kidneys are grossly normal in size and morphology. Normal soft tissue structures. There are diffuse degenerative changes of the visualized lumbar spine. RAD/Abd Inc Decub and/or Erect IMPRESSION: Dilated small bowel loops with air-fluid levels. Gas is seen in the distal colon and rectum. Findings are suggestive of either an incomplete small bowel obstruction or early small bowel obstruction. Follow-up is recommended. Electronically Signed: Wilian Roman, at 14:57 EST , Service support ,
--- NOTE | 2019-04-30 14:22 | EKG12_ITS ---
Test Reason : ROUTINE Blood Pressure : / mmHG Vent. Rate : 060 BPM Atrial Rate : 060 BPM P-R Int : 178 ms QRS Dur : 092 ms QT Int : 426 ms P-R-T Axes : 037 -42 044 degrees QTc Int : 426 ms Normal sinus rhythm Left axis deviation Abnormal ECG When compared with ECG of 28-OCT-2014 13:08, No significant change was found Confirmed by ARON ROSA ([id number]), electronic news gathering editor ROSANA ZHENG ([id number]) on 05/01/2019 1:17:18 PM Referred By: John Cobian Confirmed By:ARON ROSA
[2019-04-30] MEDS: Ipratropium/Albuterol Sulfate 3 ML AMPUL.NEB INHALATION ×2 (14:49→18:56)
--- NOTE | 2019-04-30 16:25 | CHAPLAIN ---
Type of Pastoral Visit _x__ Initial Visit ___ Follow-up Visit ___ On-call Visit ___ General Patient Visit ___ Spiritual Assessment ___ Family Conference ___ Bereavement ___ Rapid Response ___ Code Blue ___ Other (describe below) Pastoral Care Referral From _x__ Patient ___ Family ___ Nurse ___ Physician ___ Mobile Paint Specialist ___ Dairy Nutrition Specialist ___ Other (describe below) Sacrament/Intervention _x__ Active listening ___ Anointing ___ Taoist ___ Bereavement ___ Communion _x__ Gaby exploration ___ _x__ Life review _x__ Prayer ___ Reconciliation ___ Sacrament of Sick _x__ Supportive presence ___ Wedding ___ Other (describe below) Pastoral Comments patient was moved from Rehab to [facility], pt requested spiritual care support from this senior quality assurance analyst
[2019-04-30] MEDS: 0.9% Normal Saline 1,000 ML 100 ML IV (16:36)
[2019-04-30] MEDS: NYSTATIN 500,000 UNIT/5 ML UDC 500000 UNIT PO ×2 (18:24→21:53)
[2019-04-30] MEDS: Allopurinol 100 MG Tablet PO (18:24)
[2019-04-30] MEDS: clonazePAM 1 MG Tablet 0.5 MG PO (18:25)
--- NOTE | 2019-04-30 20:33 | NURSING ---
Verbal report given to Lorraine Nance RN. She willl resume care of patient at this time.
[2019-04-30] MEDS: Doxazosin 1 MG Tablet 2 MG PO (21:46)
[2019-04-30] MEDS: Senna/Docusate Sodium 1 Tablet 2 TABLET PO (21:47)
[2019-04-30] MEDS: dilTIAZem CD 120 MG Capsule PO (21:47)
[2019-04-30] MEDS: MELATONIN 3 MG TABLET PO (21:51)
[2019-04-30] MEDS: Carvedilol 6.25 MG Tablet PO (21:52)
[2019-04-30] MEDS: QUEtiapine 25 MG Tablet 50 MG PO (21:53)
[2019-05-01] VITALS (11 sets, daily range): BP systolic 124–148; BP diastolic 45–83; PULSE 63–75; RESP 16–18; TEMP 36.7–36.8; O2SAT 98–99
[2019-05-01] MEDS: 0.9% Normal Saline 1,000 ML 100 ML IV (03:34)
[2019-05-01 05:20] LABS: Absolute Lymphocyte Count 1.23 X10^3/uL (0.83-4.51); Absolute Neutrophil Count 3.3 X10^3/uL (2.0-7.7); Basophil# 0.01 X10^3/uL; Basophil% 0.2 % (0-1); Eosinophil# 0.16 X10^3/uL; Eosinophils% 3.1 % (0-5); Hematocrit 29.6 % (37-47); Hemoglobin 9.1 g/dL (12.0-15.0); Lymphocyte # 1.23 X10^3/ul (4.0); Lymphocyte % 23.8 % (19-41); Mean Corp Hgb Conc 30.7 g/dL (32-36); Mean Corpuscular Hgb 29.1 pg (27.0-32.0); Mean Corpuscular Volume 94.6 fL (81-99); Mean Platelet Vol. 9.9 fl (6.2-12.0); Monocyte# 0.48 X10^3/uL; Monocyte% 9.3 % (0-10); NRBC Flagged by Analyzer 0 % (0-5); Neutrophil # 3.27 X10^3/uL (2.7-7.7); Neutrophil % 63.2 % (47-70); Platelet Count 225 K/mm3 (150-450); RBC Distribution Width CV 17.2 % (11.6-14.6); RBC Distribution Width SD 59.5 fl (35.1-43.9); Red Blood Count 3.13 M/mm3 (4.2-5.4); White Blood Count 5.2 K/mm3 (4.4-11.0)
[2019-05-01 05:38] LABS: Anion Gap 4 (5-15); BUN 19 mg/dL (7-18); BUN/Creat Ratio 22.3 RATIO (10-20); Calcium,Total 8.1 mg/dL (8.5-10.1); Chloride 108 mmol/L (98-107); Creatinine, Serum 0.85 mg/dL (0.55-1.02); EST Glomerular Filtration Rate 68 mL/min (>60); Est Glom Filt Rate - Afr Amer 82 mL/min (>60); Estimated Creatinine Clearance 39.83 ml/min; Glucose 83 mg/dL (74-106); Potassium 3.6 mmol/L (3.5-5.1); Sodium Level 142 mmol/L (136-145)
--- NOTE | 2019-05-01 05:55 | RAD_ITS ---
STUDY: X-RAY CHEST REASON FOR EXAM: Female, 78 years old. BL infiltrates -- follow up TECHNIQUE: AP and lateral views of the chest. COMPARISON: Comparison is made with prior examination dated April 30, 2019. FINDINGS: EKG electrodes are seen. Since prior study, the bilateral increased interstitial markings almost completely resolved. Minimal residual changes persist. There is no demonstrated pleural abnormality. Sternal cerclage wires and vascular clips are present from a prior sternotomy and coronary artery bypass graft procedure (CABG). Normal mediastinum and sylvia. Normal visualized pulmonary arteries. There is atherosclerotic calcification of the aortic arch with tortuosity. There is demineralization of the osseous structures. 2 metallic anchors are seen overlying the left humeral head in keeping with prior rotator cuff surgery. There is no demonstrated abnormality of the visualized soft tissue structures of the upper abdomen. RAD/Chest PA and Lateral IMPRESSION: Interval improvement of both lungs. Mild residual changes persist. Electronically Signed: Wilian Roman, at 11:17 EST , Service support ,
[2019-05-01] MEDS: Ipratropium/Albuterol Sulfate 3 ML AMPUL.NEB INHALATION ×2 (07:03→19:33)
--- NOTE | 2019-05-01 08:00 | RAD_ITS ---
STUDY: GASTROGRAFIN SMALL BOWEL FOLLOW-THROUGH EXAMINATION. REASON FOR EXAM: Female, 78 years old. Possible small bowel obstruction FLUOROSCOPY TIME (if supplied): ( 40 seconds ) minutes/seconds TECHNIQUE: A hand potter film was obtained. Following this, the patient ingested Gastrografin. A small bowel follow-through examination was then performed. COMPARISON: None. FINDINGS: On the hand potter film, the gas pattern is unremarkable. Gas and fecal material are seen throughout the colon down to the rectum. Phleboliths are seen within the pelvis. There is evidence of a marked degree of degenerative changes of the lumbar spine. The patient ingested Gastrografin. There is no evidence of a small bowel obstruction. The Gastrografin is seen within the right hemicolon within 90 minutes. RAD/Small Bowel Series Only IMPRESSION: No evidence of a small bowel obstruction. Electronically Signed: Wilian Roman, at 12:46 EST , Service support ,
[2019-05-01] MEDS: Pantoprazole Sodium 40 MG Tablet PO (12:38)
[2019-05-01] MEDS: Senna/Docusate Sodium 1 Tablet 2 TABLET PO (12:38)
[2019-05-01] MEDS: dilTIAZem CD 120 MG Capsule PO ×2 (12:38→22:06)
[2019-05-01] MEDS: Thyroid 15 MG Tablet 45 MG PO (12:39)
[2019-05-01] MEDS: Doxazosin 1 MG Tablet 2 MG PO ×2 (12:39→22:05)
[2019-05-01] MEDS: Carvedilol 6.25 MG Tablet PO ×2 (12:39→22:05)
[2019-05-01] MEDS: Aspirin E.C. 81 MG Tablet PO (12:39)
[2019-05-01] MEDS: Lidocaine 5% Patch 1 PATCH TOPICAL (13:04)
[2019-05-01] MEDS: Enoxaparin 40 MG/0.4 ML Syringe SC (13:04)
[2019-05-01] MEDS: NYSTATIN 500,000 UNIT/5 ML UDC 500000 UNIT PO ×4 (13:05→22:06)
--- NOTE | 2019-05-01 13:26 | PCM.PROGNOTE ---
<Tamera Díaz - Last Filed: 05/01/19 13:51> Subjective: Patient seen and examined. Resting comfortably in bed. Abdominal pain improved. No further nausea, vomiting. - Physical Exam Vitals/I&O's: Vital Signs Temp Pulse Resp BP Pulse Ox 98.1 F 69 18 147/54 H 99 05/01/19 12:00 05/01/19 12:00 05/01/19 12:00 05/01/19 12:00 05/01/19 12:00 Oxygen Flow Rate (L/min) 2 Oxygen Delivery Method Nasal Cannula Weight: 146 lb 9.718 oz Body Mass Index (BMI) 28.0 Finger Stick Blood Glucose 111 Intake and Output for Last 24 Hours 04/29/19 04/30/19 05/01/19 23:59 23:59 23:59 Intake Total 51.67 / 51.67 1671.46 / 1671.46 Output Total 200 / 1200 1475 / 1475 Balance -148.33 / -1148.33 196.46 / 196.46 General: Alert, Oriented x3, Cooperative HEENT: Atraumatic, PERRLA, EOMI, Normocephalic Neck: Supple, No JVD, Negative Carotid Bruits Lungs: Diminished, - - Fine crackles throughout Cardiovascular: Regular rate, Regular Rhythm, Normal S1, Normal S2, No murmurs Abdomen: Bowel Sounds Present, Soft, Non Tender, Non-Distended Extremities: No clubbing, No cyanosis, No edema, Capillary Refill Less than 3 Seconds Skin: No rashes, No breakdown Musculoskeletal: No Tenderness to Palpation of Joints or Extremities Neurological: Cranial nerves II-XII grossly intact, Neuro grossly intact, - - Left upper extremity weakness/drift. Mild left lower extremity weakness. Recent CVA. Psych/Mental Status: Normal Affect, Appropriate Laboratory Results 05/01/19 05:05: WBC 5.2, RBC 3.13 L, Hgb 9.1 L, Hct 29.6 L, MCV 94.6, MCH 29.1, MCHC 30.7 L, RDW Std Deviation 59.5 H, RDW Coeff of Darrell 17.2 H, Plt Count 225, MPV 9.9, Immature Gran % (Auto) 0.400, Neut % (Auto) 63.2, Lymph % (Auto) 23.8, Schleicher % (Auto) 9.3, Eos % (Auto) 3.1, Baso % (Auto) 0.2, Absolute Neuts (auto) 3.3, Absolute Lymphs (auto) 1.23, Nucleated RBC % 0 05/01/19 05:05: Sodium 142, Potassium 3.6, Chloride 108 H, Carbon Dioxide 30.0, Anion Gap 4 L, BUN 19 H, Creatinine 0.85, Estim Creat Clear Calc 39.83, Est GFR (MDRD) Af Amer 82, Est GFR (MDRD) Non-Af 68, BUN/Creatinine Ratio 22.3 H, Glucose 83, Calcium 8.1 L Current Medications Acetaminophen (Tylenol) 650 mg PO Q6H PRN PRN PRN Reason: Pain Score 1-10/Temp > 100.7 F Al Hydroxide/Mg Hydroxide (Mylanta Ii) 30 ml PO Q6H PRN PRN PRN Reason: HEARTBURN OR INDIGESTION Albuterol Sulfate (Ventolin Aerosols) 2.5 mg INHALATION Q2H PRN PRN PRN Reason: SHORTNESS OF BREATH Albuterol Sulfate (Ventolin Aerosols) 2.5 mg INHALATION Q2H PRN PRN PRN Reason: wheezing or SOB Albuterol/Ipratropium (Duoneb) 3 ml INHALATION Q4H.RT [facility] Last Admin: 05/01/19 11:09 Dose: Not Given Documented by: Allopurinol (Zyloprim) 100 mg PO DINNER [facility] Last Admin: 04/30/19 18:24 Dose: 100 mg Documented by: Aspirin (Ecotrin) 81 mg PO DAILY [facility] Last Admin: 05/01/19 12:39 Dose: 81 mg Documented by: Carvedilol (Coreg) 6.25 mg PO BID [facility] Last Admin: 05/01/19 12:39 Dose: 6.25 mg Documented by: Clonazepam (Klonopin) 0.5 mg PO 1900 [facility] Last Admin: 04/30/19 18:25 Dose: 0.5 mg Documented by: Dextrose (D50w Syringe) 0 gm IV X1 PRN; Protocol PRN Reason: Hypoglycemia Diltiazem HCl (Cardizem Cd) 120 mg PO BID [facility] Last Admin: 05/01/19 12:38 Dose: 120 mg Documented by: Doxazosin Mesylate (Cardura) 2 mg PO BID [facility] Last Admin: 05/01/19 12:39 Dose: 2 mg Documented by: Enoxaparin Sodium (Lovenox) 40 mg SC DAILY [facility] Last Admin: 05/01/19 13:04 Dose: 40 mg Documented by: Glucagon () 1 mg IM .X1 PRN PRN Reason: Hypoglycemia Haloperidol (Haldol) 2 mg PO Q4H PRN PRN PRN Reason: AGITATION Sodium Chloride () 250 mls @ 15 mls/hr IV .[id number] PRN PRN Reason: Saline Flush Sodium Chloride () 250 mls @ 15 mls/hr IV .[id number] PRN PRN Reason: Additional IVPB Infusion Piperacillin Sod/Tazobactam (Sod 3.375 gm/ Sodium Chloride) 50 mls @ 12.5 mls/hr IV Q8 [facility] Stop: 05/07/19 14:01 Last Infusion: 05/01/19 09:25 Dose: Infused Documented by: Sodium Chloride () 1,000 mls @ 100 mls/hr IV .Q10H [facility] Last Infusion: 05/01/19 12:47 Dose: 100 mls/hr Documented by: Lidocaine (Lidoderm Patch) 1 patch TOPICAL DAILY [facility] Last Admin: 05/01/19 13:04 Dose: 1 patch Documented by: Loperamide HCl (Imodium) 2 mg PO Q4H PRN PRN PRN Reason: Diarrhea Magnesium Hydroxide (Milk Of Magnesia) 30 ml PO DAILY PRN PRN PRN Reason: Constipation Melatonin (Melatonin) 3 mg PO QHS [facility] Last Admin: 04/30/19 21:51 Dose: 3 mg Documented by: Nystatin (Nystatin) 500,000 unit PO 4X/DAY [facility] Last Admin: 05/01/19 13:05 Dose: 500,000 unit Documented by: Ondansetron HCl (Zofran) 4 mg IV Q8H PRN PRN PRN Reason: NAUSEA/VOMITING Last Admin: 04/30/19 13:58 Dose: 4 mg Documented by: Pantoprazole Sodium (Protonix) 40 mg PO DAILY [facility] Last Admin: 05/01/19 12:38 Dose: 40 mg Documented by: Quetiapine Fumarate (Seroquel) 50 mg PO QHS [facility] Last Admin: 04/30/19 21:53 Dose: 50 mg Documented by: Senna/Docusate Sodium (Senokot-S, Yuliya-Colace) 2 tablet PO BID [facility] Last Admin: 05/01/19 12:38 Dose: 2 tablet Documented by: Sodium Chloride () 10 - 40 ml IV UD PRN PRN Reason: SALINE FLUSH Thyroid ([place] Thyroid) 45 mg PO DAILY [facility] Last Admin: 05/01/19 12:39 Dose: 45 mg Documented by: Medical Necessity - Tobacco Use Smoking Status: Never smoker Assessment/Plan All Active Problems (Last Reviewed 04/17/19 @ 10:45 by Francine Chapa DO) Dysphagia (Acute) Complicated UTI (urinary tract infection) (Resolved) Hypoxemia (Resolved) Nonspecific abnormal unspecified cardiovascular function study (Resolved) Dextrocardia (Ruled-out) 1. Acute on chronic hypoxic respiratory failure, suspect secondary to aspiration pneumonia vs fluid overload-chest x-ray shows diffuse infiltrates versus CHF. Patient did receive IV X2. Continue IV Zosyn empirically. Speech therapy consult. Aspiration precautions. Repeat chest x-ray this morning showed improvement in aeration in both lungs. Oxygen currently stable on chronic O2 requirements. BNP not significant. No lower extremity swelling. 2. Questionable early small bowel obstruction, resolved-initial abdominal x-ray on admission showed dilated small bowel loops, suggestive of incomplete small bowel obstruction or early small bowel obstruction. Small bowel follow-through showed no evidence of small bowel obstruction. Continue bowel regimen. 3. Dysphagia, intermittent emesis-speech therapy consult. Will order barium esophagram. 4. Chronic diastolic CHF- Recent echo at [facility] demonstrated an EF of 55%. 5. 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 Plan to return to rehab when stable. 6. Hypertension-stable, continue carvedilol, Cardizem regimen. 7. Hypothyroidism= continue home medication regimen. 8. CAD with history of CABG-continue aspirin, not on statin. 9. Anxiety with chronic benzodiazepine use-home Klonopin regimen decreased 0.5 mg nightly. Initiated on Seroquel 50 mg nightly due to nighttime delirium. PRN Haldol for increased agitation. CODE STATUS: DNR CCA DVT prophylaxis-Lovenox subcu This patient was seen by Tamera Díaz, LEO-C under the supervision of Dr. Cobian. <John Cobian - Last Filed: 02/14/20 14:29> Subjective: Patient seen and examined. Patient lying down on the bed comfortably. No shortness of breath,. Denied nausea or vomiting. Complain of mild abdominal bloating/distention. Had a small bowel movement and flatus yesterday. - Physical Exam Vitals/I&O's: Vital Signs Temp Pulse Resp BP Pulse Ox 98.1 F 69 18 147/54 H 99 05/01/19 12:00 05/01/19 12:00 05/01/19 12:00 05/01/19 12:00 05/01/19 12:00 Oxygen Flow Rate (L/min) 2 Oxygen Delivery Method Nasal Cannula Weight: 146 lb 9.718 oz Body Mass Index (BMI) 28.0 Finger Stick Blood Glucose 111 Intake and Output for Last 24 Hours 04/29/19 04/30/19 05/01/19 23:59 23:59 23:59 Intake Total 51.67 / 51.67 1671.46 / 1671.46 Output Total 200 / 1200 1475 / 1475 Balance -148.33 / -1148.33 196.46 / 196.46 General: Alert, Oriented x3, Cooperative HEENT: Atraumatic, PERRLA, EOMI, Normocephalic Neck: Supple, No JVD, Negative Carotid Bruits Lungs: Diminished - Air entry diminished, Rales - Bilateral lower lobes diffuse coarse crepitation present, I feel it is chronic secondary to interstitial lung disease, - Cardiovascular: Regular rate, Regular Rhythm, Normal S1, Normal S2, No murmurs Abdomen: Bowel Sounds Present, Soft, Non Tender Extremities: No edema, Capillary Refill Less than 3 Seconds Skin: No rashes, No breakdown Musculoskeletal: No Tenderness to Palpation of Joints or Extremities, Arthritic Changes, Muscle Wasting Neurological: - - Left upper extremity weakness/drift. Mild left lower extremity weakness. Recent CVA. Left-sided weakness. Psych/Mental Status: Normal Affect, Appropriate Laboratory Results 05/01/19 05:05: WBC 5.2, RBC 3.13 L, Hgb 9.1 L, Hct 29.6 L, MCV 94.6, MCH 29.1, MCHC 30.7 L, RDW Std Deviation 59.5 H, RDW Coeff of Darrell 17.2 H, Plt Count 225, MPV 9.9, Immature Gran % (Auto) 0.400, Neut % (Auto) 63.2, Lymph % (Auto) 23.8, Schleicher % (Auto) 9.3, Eos % (Auto) 3.1, Baso % (Auto) 0.2, Absolute Neuts (auto) 3.3, Absolute Lymphs (auto) 1.23, Nucleated RBC % 0 05/01/19 05:05: Sodium 142, Potassium 3.6, Chloride 108 H, Carbon Dioxide 30.0, Anion Gap 4 L, BUN 19 H, Creatinine 0.85, Estim Creat Clear Calc 39.83, Est GFR (MDRD) Af Amer 82, Est GFR (MDRD) Non-Af 68, BUN/Creatinine Ratio 22.3 H, Glucose 83, Calcium 8.1 L Current Medications Acetaminophen (Tylenol) 650 mg PO Q6H PRN PRN PRN Reason: Pain Score 1-10/Temp > 100.7 F Al Hydroxide/Mg Hydroxide (Mylanta Ii) 30 ml PO Q6H PRN PRN PRN Reason: HEARTBURN OR INDIGESTION Albuterol Sulfate (Ventolin Aerosols) 2.5 mg INHALATION Q2H PRN PRN PRN Reason: wheezing or SOB Albuterol/Ipratropium (Duoneb) 3 ml INHALATION Q4H.RT [facility] Last Admin: 05/01/19 11:09 Dose: Not Given Documented by: Allopurinol (Zyloprim) 100 mg PO DINNER [facility] Last Admin: 04/30/19 18:24 Dose: 100 mg Documented by: Aspirin (Ecotrin) 81 mg PO DAILY [facility] Last Admin: 05/01/19 12:39 Dose: 81 mg Documented by: Carvedilol (Coreg) 6.25 mg PO BID [facility] Last Admin: 05/01/19 12:39 Dose: 6.25 mg Documented by: Clonazepam (Klonopin) 0.5 mg PO 1900 [facility] Last Admin: 04/30/19 18:25 Dose: 0.5 mg Documented by: Dextrose (D50w Syringe) 0 gm IV X1 PRN; Protocol PRN Reason: Hypoglycemia Diltiazem HCl (Cardizem Cd) 120 mg PO BID [facility] Last Admin: 05/01/19 12:38 Dose: 120 mg Documented by: Doxazosin Mesylate (Cardura) 2 mg PO BID [facility] Last Admin: 05/01/19 12:39 Dose: 2 mg Documented by: Enoxaparin Sodium (Lovenox) 40 mg SC DAILY [facility] Last Admin: 05/01/19 13:04 Dose: 40 mg Documented by: Glucagon () 1 mg IM .X1 PRN PRN Reason: Hypoglycemia Haloperidol (Haldol) 2 mg PO Q4H PRN PRN PRN Reason: AGITATION Sodium Chloride () 250 mls @ 15 mls/hr IV .[id number] PRN PRN Reason: Saline Flush Sodium Chloride () 250 mls @ 15 mls/hr IV .[id number] PRN PRN Reason: Additional IVPB Infusion Piperacillin Sod/Tazobactam (Sod 3.375 gm/ Sodium Chloride) 50 mls @ 12.5 mls/hr IV Q8 [facility] Stop: 05/07/19 14:01 Last Infusion: 05/01/19 09:25 Dose: Infused Documented by: Lidocaine (Lidoderm Patch) 1 patch TOPICAL DAILY [facility] Last Admin: 05/01/19 13:04 Dose: 1 patch Documented by: Loperamide HCl (Imodium) 2 mg PO Q4H PRN PRN PRN Reason: Diarrhea Magnesium Hydroxide (Milk Of Magnesia) 30 ml PO DAILY PRN PRN PRN Reason: Constipation Melatonin (Melatonin) 3 mg PO QHS [facility] Last Admin: 04/30/19 21:51 Dose: 3 mg Documented by: Nystatin (Nystatin) 500,000 unit PO 4X/DAY [facility] Last Admin: 05/01/19 13:05 Dose: 500,000 unit Documented by: Ondansetron HCl (Zofran) 4 mg IV Q8H PRN PRN PRN Reason: NAUSEA/VOMITING Last Admin: 04/30/19 13:58 Dose: 4 mg Documented by: Pantoprazole Sodium (Protonix) 40 mg PO DAILY [facility] Last Admin: 05/01/19 12:38 Dose: 40 mg Documented by: Polyethylene Glycol (Miralax) 17 gm PO DAILY [facility] Quetiapine Fumarate (Seroquel) 50 mg PO QHS [facility] Last Admin: 04/30/19 21:53 Dose: 50 mg Documented by: Senna/Docusate Sodium (Senokot-S, Yuliya-Colace) 2 tablet PO BID [facility] Last Admin: 05/01/19 12:38 Dose: 2 tablet Documented by: Sodium Chloride () 10 - 40 ml IV UD PRN PRN Reason: SALINE FLUSH Thyroid ([place] Thyroid) 45 mg PO DAILY [facility] Last Admin: 05/01/19 12:39 Dose: 45 mg Documented by: Assessment/Plan This patient was seen in conjunction with Tamera BAILEY. I have independently interviewed and examined the patient and reviewed pertinent history, examination findings, laboratory and plan of management. I have reviewed the note and agree with the documented findings with the few additional points. In brief, patient is admitted for acute shortness of breath for about 1 day. Chest x-ray independently reviewed and shows bilateral hilar and infrahilar alveolar congestion with bilateral peripheral and lower lobes reticular changes suggestive of chronic interstitial disease. BNP is slightly elevated but not high. Lasix 40 mg 1 dose given on top of 20 mg IV Lasix for she received in ER. As patient has history of inclusion myositis and weakness of muscle, barium esophagram ordered after discussion with Dr. Chapa. There is suspicion of possible aspiration pneumonia therefore on aspiration precaution along with IV Zosyn. Repeat chest x-ray shows improvement in central congestion. Hilar engorgement has cleared. Bilateral residual reticular changes persist. Abdominal x-ray shows dilated small bowel loops with air-fluid level in gases and distal colon rectum. After that, a small bowel barium follow-through was done. Patient was dry retching in the right colon in 19 minutes therefore no evidence of small bowel obstruction. Patient has fecal residue. On stool softener and Dulcolax suppository. Modified barium swallow and barium esophagram to rule out dysphagia tomorrow a.m. Possible acute on chronic diastolic heart failure: Recent echo in [facility] shows EF 55%. Pulmonary congestion is cleared. Other chronic comorbidities include recent right thalamus hemorrhagic CVA, inclusion body myositis, hypertension, hypothyroidism, coronary artery disease history of CABG, anxiety and mild insomnia: Home medications reconciliation done. CODE STATUS: DNR CC arrest. Discussed with the patient and her daughter today at the bedside. Total time of the visit including total time spent in counseling or coordination of care, (more than 50% of the total time, spent in obtaining medical information from nurses and other ancillary care providers), discussion with patient and nursing staff, review of labs and imaging is 35 minutes I have discussed my assessment with Tamera BAILEY and orders have been reviewed. Clinical Impression(s) from Imaging Studies Abdomen X-Ray 04/30/19 14:07 IMPRESSION: Dilated small bowel loops with air-fluid levels. Gas is seen in the distal colon and rectum. Findings are suggestive of either an incomplete small bowel obstruction or early small bowel obstruction. Follow-up is recommended. Chest X-Ray 05/01/19 05:55 IMPRESSION: Interval improvement of both lungs. Mild residual changes persist. Electronically Signed: Wilina Roman, at 11:17 EST , Service support , Small Bowel X-Ray 05/01/19 08:00 IMPRESSION: No evidence of a small bowel obstruction. Code Visit Inpatient E&M: 96135 [facility] Hosp L3
--- NOTE | 2019-05-01 14:28 | CASEMGMT ---
Patient is from the inpatient rehab unit. Spoke with SONNY in the rehab unit who said she was working on getting patient to [facility]. [facility] wanted to do an on site visit before they would accept. SONNY spoke with Jacey at [facility] and he said they would not be able to take patient over the weekend anyway. He said he could come and see her on Saturday. SW faxed him updates. SONNY spoke with patient's daughter, Kaity. She said she is open to patient going back to [facility] or [facility] whichever is recommended. SONNY spoke with Julianna in the rehab unit and since patient's plan is to go to a penitentiary she should go to the penitentiary. SONNY spoke with patient's daughter and let her know this information. Plan: [facility] pending their acceptance of patient and insurance approval. Stephie HIGH
--- NOTE | 2019-05-01 15:51 | CASEMGMT ---
SONNY received a message from Jacey at [facility]. He plans on seeing patient this weekend or first thing on Saturday. He will get in touch with SONNY Saturday. Plan: [facility] pending their acceptance and insurance approval. Stephie HIGH
[2019-05-01] MEDS: Allopurinol 100 MG Tablet PO (18:09)
[2019-05-01] MEDS: clonazePAM 1 MG Tablet 0.5 MG PO (18:09)
[2019-05-01] MEDS: Acetaminophen 325 MG Tablet 650 MG PO (20:29)
[2019-05-01] MEDS: 0.9% Saline Lock 10 ML Syringe IV (22:05)
[2019-05-01] MEDS: MELATONIN 3 MG TABLET PO (22:08)
[2019-05-02] VITALS (9 sets, daily range): BP systolic 120–155; BP diastolic 43–75; PULSE 48–69; RESP 16–18; TEMP 36.3–37.2; O2SAT 94–98
[2019-05-02] MEDS: Ipratropium/Albuterol Sulfate 3 ML AMPUL.NEB INHALATION (06:56)
[2019-05-02 08:04] LABS: Hematocrit 28.3 % (37-47); Hemoglobin 8.6 g/dL (12.0-15.0); Mean Corp Hgb Conc 30.4 g/dL (32-36); Mean Corpuscular Hgb 29.1 pg (27.0-32.0); Mean Corpuscular Volume 95.6 fL (81-99); Mean Platelet Vol. 11.2 fl (6.2-12.0); Platelet Count 211 K/mm3 (150-450); RBC Distribution Width CV 17.1 % (11.6-14.6); RBC Distribution Width SD 59.7 fl (35.1-43.9); Red Blood Count 2.96 M/mm3 (4.2-5.4); White Blood Count 4.6 K/mm3 (4.4-11.0)
[2019-05-02 08:26] LABS: Anion Gap 4 (5-15); BUN 16 mg/dL (7-18); BUN/Creat Ratio 22.5 RATIO (10-20); Calcium,Total 8.3 mg/dL (8.5-10.1); Chloride 112 mmol/L (98-107); Creatinine, Serum 0.71 mg/dL (0.55-1.02); EST Glomerular Filtration Rate 84 mL/min (>60); Est Glom Filt Rate - Afr Amer 102 mL/min (>60); Estimated Creatinine Clearance 33.86 ml/min; Glucose 85 mg/dL (74-106); Potassium 3.3 mmol/L (3.5-5.1); Sodium Level 143 mmol/L (136-145)
[2019-05-02] MEDS: NYSTATIN 500,000 UNIT/5 ML UDC 500000 UNIT PO ×4 (10:05→21:13)
[2019-05-02] MEDS: Thyroid 15 MG Tablet 45 MG PO (10:06)
[2019-05-02] MEDS: dilTIAZem CD 120 MG Capsule PO ×2 (10:06→21:13)
[2019-05-02] MEDS: Carvedilol 6.25 MG Tablet PO ×2 (10:07→21:19)
[2019-05-02] MEDS: Pantoprazole Sodium 40 MG Tablet PO (10:09)
[2019-05-02] MEDS: Doxazosin 1 MG Tablet 2 MG PO ×2 (10:09→21:18)
[2019-05-02] MEDS: Aspirin E.C. 81 MG Tablet PO (10:10)
[2019-05-02] MEDS: Lidocaine 5% Patch 1 PATCH TOPICAL (10:12)
[2019-05-02] MEDS: Enoxaparin 40 MG/0.4 ML Syringe SC (10:12)
--- NOTE | 2019-05-02 11:18 | PCM.PROGNOTE ---
<Tamera Díaz - Last Filed: 05/02/19 11:31> Subjective: Patient seen and examined. Abdominal pain improved. Had multiple bowel movements yesterday. Denies shortness of breath. - Physical Exam Vitals/I&O's: Vital Signs Temp Pulse Resp BP Pulse Ox 97.7 F L 57 L 16 155/52 H 98 05/02/19 09:27 05/02/19 09:27 05/02/19 09:27 05/02/19 09:27 05/02/19 09:27 Oxygen Flow Rate (L/min) 2 Oxygen Delivery Method Nasal Cannula Weight: 150 lb 9.211 oz Body Mass Index (BMI) 28.0 Finger Stick Blood Glucose 111 Intake and Output for Last 24 Hours 04/30/19 05/01/19 05/02/19 23:59 23:59 23:59 Intake Total 51.67 / 51.67 2561.46 / 2561.46 150 / 150 Output Total 200 / 1200 1675 / 1675 0 / 0 Balance -148.33 / -1148.33 886.46 / 886.46 150 / 150 General: Alert, Oriented x3, Cooperative HEENT: Atraumatic, PERRLA, EOMI, Normocephalic Neck: Supple, No JVD, Negative Carotid Bruits Lungs: Clear to auscultation, Diminished Cardiovascular: Regular rate, Regular Rhythm, Normal S1, Normal S2, No murmurs Abdomen: Bowel Sounds Present, Soft, Non Tender, Non-Distended Extremities: No clubbing, No cyanosis, No edema, Capillary Refill Less than 3 Seconds Skin: No rashes, No breakdown Musculoskeletal: No Tenderness to Palpation of Joints or Extremities Neurological: Cranial nerves II-XII grossly intact, - - Left upper extremity weakness/drift. Mild left lower extremity weakness. Recent CVA. Psych/Mental Status: Normal Affect, Appropriate Laboratory Results 05/02/19 06:51: WBC 4.6, RBC 2.96 L, Hgb 8.6 L, Hct 28.3 L, MCV 95.6, MCH 29.1, MCHC 30.4 L, RDW Std Deviation 59.7 H, RDW Coeff of Darrell 17.1 H, Plt Count 211, MPV 11.2 05/02/19 06:51: Sodium 143, Potassium 3.3 L, Chloride 112 H, Carbon Dioxide 27.0, Anion Gap 4 L, BUN 16, Creatinine 0.71, Estim Creat Clear Calc 33.86, Est GFR (MDRD) Af Amer 102, Est GFR (MDRD) Non-Af 84, BUN/Creatinine Ratio 22.5 H, Glucose 85, Calcium 8.3 L Current Medications Acetaminophen (Tylenol) 650 mg PO Q6H PRN PRN PRN Reason: Pain Score 1-10/Temp > 100.7 F Last Admin: 05/01/19 20:29 Dose: 650 mg Documented by: Al Hydroxide/Mg Hydroxide (Mylanta Ii) 30 ml PO Q6H PRN PRN PRN Reason: HEARTBURN OR INDIGESTION Albuterol Sulfate (Ventolin Aerosols) 2.5 mg INHALATION Q2H PRN PRN PRN Reason: wheezing or SOB Albuterol/Ipratropium (Duoneb) 3 ml INHALATION Q6HWA.RT [facility] Last Admin: 05/02/19 06:56 Dose: 3 ml Documented by: Allopurinol (Zyloprim) 100 mg PO DINNER [facility] Last Admin: 05/01/19 18:09 Dose: 100 mg Documented by: Aspirin (Ecotrin) 81 mg PO DAILY [facility] Last Admin: 05/02/19 10:10 Dose: 81 mg Documented by: Carvedilol (Coreg) 6.25 mg PO BID [facility] Last Admin: 05/02/19 10:07 Dose: 6.25 mg Documented by: Clonazepam (Klonopin) 0.5 mg PO 1900 [facility] Last Admin: 05/01/19 18:09 Dose: 0.5 mg Documented by: Diltiazem HCl (Cardizem Cd) 120 mg PO BID [facility] Last Admin: 05/02/19 10:06 Dose: 120 mg Documented by: Doxazosin Mesylate (Cardura) 2 mg PO BID [facility] Last Admin: 05/02/19 10:09 Dose: 2 mg Documented by: Enoxaparin Sodium (Lovenox) 40 mg SC DAILY [facility] Last Admin: 05/02/19 10:12 Dose: 40 mg Documented by: Glucagon () 1 mg IM .X1 PRN PRN Reason: Hypoglycemia Haloperidol (Haldol) 2 mg PO Q4H PRN PRN PRN Reason: AGITATION Sodium Chloride () 250 mls @ 15 mls/hr IV .[id number] PRN PRN Reason: Saline Flush Sodium Chloride () 250 mls @ 15 mls/hr IV .[id number] PRN PRN Reason: Additional IVPB Infusion Piperacillin Sod/Tazobactam (Sod 3.375 gm/ Sodium Chloride) 50 mls @ 12.5 mls/hr IV Q8 [facility] Stop: 05/07/19 14:01 Last Infusion: 05/02/19 10:16 Dose: Infused Documented by: Dextrose (Dextrose 10%-Water) 250 mls @ 999 mls/hr IV .Q16M PRN; Protocol PRN Reason: HYPOGLYCEMIA Lidocaine (Lidoderm Patch) 1 patch TOPICAL DAILY [facility] Last Admin: 05/02/19 10:12 Dose: 1 patch Documented by: Loperamide HCl (Imodium) 2 mg PO Q4H PRN PRN PRN Reason: Diarrhea Magnesium Hydroxide (Milk Of Magnesia) 30 ml PO DAILY PRN PRN PRN Reason: Constipation Melatonin (Melatonin) 3 mg PO QHS [facility] Last Admin: 05/01/19 22:08 Dose: 3 mg Documented by: Nystatin (Nystatin) 500,000 unit PO 4X/DAY [facility] Last Admin: 05/02/19 10:05 Dose: 500,000 unit Documented by: Ondansetron HCl (Zofran) 4 mg IV Q8H PRN PRN PRN Reason: NAUSEA/VOMITING Last Admin: 04/30/19 13:58 Dose: 4 mg Documented by: Pantoprazole Sodium (Protonix) 40 mg PO DAILY [facility] Last Admin: 05/02/19 10:09 Dose: 40 mg Documented by: Polyethylene Glycol (Miralax) 17 gm PO DAILY [facility] Last Admin: 05/02/19 09:30 Dose: Not Given Documented by: Quetiapine Fumarate (Seroquel) 50 mg PO QHS [facility] Last Admin: 05/01/19 22:15 Dose: Not Given Documented by: Senna/Docusate Sodium (Senokot-S, Yuliya-Colace) 2 tablet PO BID [facility] Last Admin: 05/02/19 09:30 Dose: Not Given Documented by: Sodium Chloride () 10 - 40 ml IV UD PRN PRN Reason: SALINE FLUSH Last Admin: 05/01/19 22:05 Dose: 10 ml Documented by: Thyroid (Wingate Thyroid) 45 mg PO DAILY [facility] Last Admin: 05/02/19 10:06 Dose: 45 mg Documented by: Medical Necessity - Tobacco Use Smoking Status: Never smoker Assessment/Plan All Active Problems (Last Reviewed 04/17/19 @ 10:45 by Francine Chapa DO) Dysphagia (Acute) Complicated UTI (urinary tract infection) (Resolved) Hypoxemia (Resolved) Nonspecific abnormal unspecified cardiovascular function study (Resolved) Dextrocardia (Ruled-out) 1. Acute on chronic hypoxic respiratory failure, suspect secondary to aspiration pneumonia vs fluid overload-chest x-ray shows diffuse infiltrates versus CHF. Patient did receive IV X2. Transition from IV Zosyn to oral Augmentin empirically to complete course. Speech therapy consult. Aspiration precautions. Repeat chest x-ray showed improvement in aeration in both lungs. Oxygen currently stable on chronic O2 requirements. BNP not significant. No lower extremity swelling. Patient to have barium swallow test and esophagram for further evaluation for aspiration. 2. Questionable early small bowel obstruction, resolved-initial abdominal x-ray on admission showed dilated small bowel loops, suggestive of incomplete small bowel obstruction or early small bowel obstruction. Small bowel follow-through showed no evidence of small bowel obstruction. Continue bowel regimen. Patient had multiple bowel movements yesterday. Abdominal pain resolved. 3. Dysphagia, intermittent emesis-speech therapy consult. Barium esophagram ordered as noted above. Continue dietary modifications per speech therapy recommendations. 4. Chronic diastolic CHF- Recent echo at [facility] demonstrated an EF of 55%. 5. 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 Plan to return to rehab when stable. 6. Hypertension-stable, continue carvedilol, Cardizem regimen. 7. Hypothyroidism= continue home medication regimen. 8. CAD with history of CABG-continue aspirin, not on statin. 9. Anxiety with chronic benzodiazepine use-home Klonopin regimen decreased 0.5 mg nightly. Initiated on Seroquel 50 mg nightly due to nighttime delirium. PRN Haldol for increased agitation. CODE STATUS: DNR CCA DVT prophylaxis-Lovenox subcu Discharge planning: Patient's daughter would like her to go to [facility] at discharge, SNF pending acceptance and insurance approval. This patient was seen by PIPER Cabrera under the supervision of Dr. Cobian. <John Cobian - Last Filed: 05/02/19 14:19> Subjective: Patient is comfortable. Denies abdominal pain or burping. Had multiple bowel movements. No respiratory distress. - Physical Exam Vitals/I&O's: Vital Signs Temp Pulse Resp BP Pulse Ox 97.7 F L 57 L 16 155/52 H 98 05/02/19 09:27 05/02/19 09:27 05/02/19 09:27 05/02/19 09:27 05/02/19 09:27 Oxygen Flow Rate (L/min) 2 Oxygen Delivery Method Nasal Cannula Weight: 150 lb 9.211 oz Body Mass Index (BMI) 28.0 Finger Stick Blood Glucose 111 Intake and Output for Last 24 Hours 04/30/19 05/01/19 05/02/19 23:59 23:59 23:59 Intake Total 51.67 / 51.67 2561.46 / 2561.46 250 / 250 Output Total 200 / 1200 1675 / 1675 0 / 0 Balance -148.33 / -1148.33 886.46 / 886.46 250 / 250 General: Alert, Oriented x3, Cooperative HEENT: Atraumatic, PERRLA, EOMI, Normocephalic Neck: Supple, No JVD, Negative Carotid Bruits Lungs: Clear to auscultation, No rhonchi, No wheeze, No rales, Diminished Cardiovascular: Regular rate, Normal S1, Normal S2, No murmurs Abdomen: Bowel Sounds Present, Soft, Non Tender, Non-Distended Extremities: No edema, Capillary Refill Less than 3 Seconds Skin: No rashes, No breakdown Musculoskeletal: No Tenderness to Palpation of Joints or Extremities, Arthritic Changes, Muscle Wasting - Left upper and lower extremity Neurological: Cranial nerves II-XII grossly intact, Unsteady Gait, - - Left upper extremity weakness/drift. Mild left lower extremity weakness. Recent CVA. Left-sided weakness Psych/Mental Status: Normal Affect, Appropriate Laboratory Results 05/02/19 06:51: WBC 4.6, RBC 2.96 L, Hgb 8.6 L, Hct 28.3 L, MCV 95.6, MCH 29.1, MCHC 30.4 L, RDW Std Deviation 59.7 H, RDW Coeff of Darrell 17.1 H, Plt Count 211, MPV 11.2 05/02/19 06:51: Sodium 143, Potassium 3.3 L, Chloride 112 H, Carbon Dioxide 27.0, Anion Gap 4 L, BUN 16, Creatinine 0.71, Estim Creat Clear Calc 33.86, Est GFR (MDRD) Af Amer 102, Est GFR (MDRD) Non-Af 84, BUN/Creatinine Ratio 22.5 H, Glucose 85, Calcium 8.3 L Current Medications Acetaminophen (Tylenol) 650 mg PO Q6H PRN PRN PRN Reason: Pain Score 1-10/Temp > 100.7 F Last Admin: 05/01/19 20:29 Dose: 650 mg Documented by: Al Hydroxide/Mg Hydroxide (Mylanta Ii) 30 ml PO Q6H PRN PRN PRN Reason: HEARTBURN OR INDIGESTION Albuterol Sulfate (Ventolin Aerosols) 2.5 mg INHALATION Q2H PRN PRN PRN Reason: wheezing or SOB Albuterol/Ipratropium (Duoneb) 3 ml INHALATION Q6HWA.RT [facility] Last Admin: 05/02/19 06:56 Dose: 3 ml Documented by: Allopurinol (Zyloprim) 100 mg PO DINNER [facility] Last Admin: 05/01/19 18:09 Dose: 100 mg Documented by: Amoxicillin/Clavulanate Potassium ([facility]in Suspension 400mg/5ml) [facility] Stop: 05/07/19 17:01 Aspirin (Ecotrin) 81 mg PO DAILY [facility] Last Admin: 05/02/19 10:10 Dose: 81 mg Documented by: Carvedilol (Coreg) 6.25 mg PO BID [facility] Last Admin: 05/02/19 10:07 Dose: 6.25 mg Documented by: Clonazepam (Klonopin) 0.5 mg PO 1900 [facility] Last Admin: 05/01/19 18:09 Dose: 0.5 mg Documented by: Diltiazem HCl (Cardizem Cd) 120 mg PO BID [facility] Last Admin: 05/02/19 10:06 Dose: 120 mg Documented by: Doxazosin Mesylate (Cardura) 2 mg PO BID [facility] Last Admin: 05/02/19 10:09 Dose: 2 mg Documented by: Enoxaparin Sodium (Lovenox) 40 mg SC DAILY [facility] Last Admin: 05/02/19 10:12 Dose: 40 mg Documented by: Glucagon () 1 mg IM .X1 PRN PRN Reason: Hypoglycemia Haloperidol (Haldol) 2 mg PO Q4H PRN PRN PRN Reason: AGITATION Sodium Chloride () 250 mls @ 15 mls/hr IV .[id number] PRN PRN Reason: Saline Flush Sodium Chloride () 250 mls @ 15 mls/hr IV .[id number] PRN PRN Reason: Additional IVPB Infusion Dextrose (Dextrose 10%-Water) 250 mls @ 999 mls/hr IV .Q16M PRN; Protocol PRN Reason: HYPOGLYCEMIA Lidocaine (Lidoderm Patch) 1 patch TOPICAL DAILY [facility] Last Admin: 05/02/19 10:12 Dose: 1 patch Documented by: Loperamide HCl (Imodium) 2 mg PO Q4H PRN PRN PRN Reason: Diarrhea Magnesium Hydroxide (Milk Of Magnesia) 30 ml PO DAILY PRN PRN PRN Reason: Constipation Melatonin (Melatonin) 3 mg PO QHS [facility] Last Admin: 05/01/19 22:08 Dose: 3 mg Documented by: Nystatin (Nystatin) 500,000 unit PO 4X/DAY [facility] Last Admin: 05/02/19 13:43 Dose: 500,000 unit Documented by: Ondansetron HCl (Zofran) 4 mg IV Q8H PRN PRN PRN Reason: NAUSEA/VOMITING Last Admin: 04/30/19 13:58 Dose: 4 mg Documented by: Pantoprazole Sodium (Protonix) 40 mg PO DAILY [facility] Last Admin: 05/02/19 10:09 Dose: 40 mg Documented by: Polyethylene Glycol (Miralax) 17 gm PO DAILY [facility] Last Admin: 05/02/19 09:30 Dose: Not Given Documented by: Quetiapine Fumarate (Seroquel) 50 mg PO QHS [facility] Last Admin: 05/01/19 22:15 Dose: Not Given Documented by: Senna/Docusate Sodium (Senokot-S, Yuliya-Colace) 2 tablet PO BID [facility] Last Admin: 05/02/19 09:30 Dose: Not Given Documented by: Sodium Chloride () 10 - 40 ml IV UD PRN PRN Reason: SALINE FLUSH Last Admin: 05/02/19 13:45 Dose: 10 ml Documented by: Thyroid (Wingate Thyroid) 45 mg PO DAILY [facility] Last Admin: 05/02/19 10:06 Dose: 45 mg Documented by: Assessment/Plan This patient was seen in conjunction with [employer], Tamera. I have independently interviewed and examined the patient and reviewed pertinent history, examination findings, laboratory and plan of management. I have reviewed the note and agree with the documented findings with the few additional points. In brief, patient is admitted for acute shortness of breath for about 1 day. Chest x-ray independently reviewed and shows bilateral hilar and infrahilar alveolar congestion with bilateral peripheral and lower lobes reticular changes suggestive of chronic interstitial disease. BNP is slightly elevated but not high. Lasix was given. There is suspicion of possible aspiration pneumonia therefore on aspiration precaution along with IV Zosyn. Repeat chest x-ray shows improvement in central congestion. Bilateral residual reticular changes persist. Abdominal x-ray shows dilated small bowel loops with air-fluid level in gases and distal colon rectum. Small bowel barium follow-through was done and shows contrast in the right colon in 90 minutes therefore no evidence of small bowel obstruction. Patient has fecal residue and had good bowel movement on stool softeners. Modified barium swallow and barium esophagram to rule out dysphagia; most value done on Saturday Possible acute on chronic diastolic heart failure: Recent echo in [facility] shows EF 55%. Pulmonary congestion is cleared. Other chronic comorbidities include recent right thalamus hemorrhagic CVA, inclusion body myositis, hypertension, hypothyroidism, coronary artery disease history of CABG, anxiety and mild insomnia: Home medications reconciliation done. CODE STATUS: DNR CC arrest. Discussed with the patient and her daughter today at the bedside. Total time of the visit including total time spent in counseling or coordination of care, (more than 50% of the total time, spent in obtaining medical information from nurses and other ancillary care providers), discussion with patient and nursing staff, review of labs and imaging is 25 minutes Code Visit Inpatient E&M: 95318 Subs Hosp L2
[2019-05-02] MEDS: 0.9% Saline Lock 10 ML Syringe IV (13:45)
[2019-05-02] MEDS: Amox/Clav 400mg/5ml Susp 400 MG PO (17:59)
[2019-05-02] MEDS: Allopurinol 100 MG Tablet PO (18:02)
[2019-05-02] MEDS: MELATONIN 3 MG TABLET PO (21:19)
[2019-05-02] MEDS: clonazePAM 0.5 MG Tablet PO (21:22)
[2019-05-03] VITALS (10 sets, daily range): BP systolic 132–155; BP diastolic 40–79; PULSE 59–77; RESP 16–18; TEMP 36.5–36.9; O2SAT 92–98
[2019-05-03 06:19] LABS: Hematocrit 30.7 % (37-47); Hemoglobin 9.4 g/dL (12.0-15.0); Mean Corp Hgb Conc 30.6 g/dL (32-36); Mean Corpuscular Volume 94.8 fL (81-99); Mean Platelet Vol. 10.8 fl (6.2-12.0); Platelet Count 237 K/mm3 (150-450); RBC Distribution Width CV 17.2 % (11.6-14.6); RBC Distribution Width SD 59.8 fl (35.1-43.9); Red Blood Count 3.24 M/mm3 (4.2-5.4); White Blood Count 5.7 K/mm3 (4.4-11.0)
[2019-05-03 06:54] LABS: Anion Gap 4 (5-15); BUN 14 mg/dL (7-18); BUN/Creat Ratio 19.7 RATIO (10-20); Calcium,Total 8.7 mg/dL (8.5-10.1); Chloride 112 mmol/L (98-107); Creatinine, Serum 0.71 mg/dL (0.55-1.02); EST Glomerular Filtration Rate 84 mL/min (>60); Est Glom Filt Rate - Afr Amer 102 mL/min (>60); Estimated Creatinine Clearance 33.86 ml/min; Glucose 93 mg/dL (74-106); Potassium 4.1 mmol/L (3.5-5.1); Sodium Level 143 mmol/L (136-145)
[2019-05-03] MEDS: Ipratropium/Albuterol Sulfate 3 ML AMPUL.NEB INHALATION ×3 (06:58→19:28)
[2019-05-03] MEDS: Amox/Clav 400mg/5ml Susp 400 MG PO ×2 (08:53→17:24)
[2019-05-03] MEDS: Polyethylene Glycol 3350 17 GM PACKET PO (08:55)
[2019-05-03] MEDS: Lidocaine 5% Patch 1 PATCH TOPICAL (09:49)
[2019-05-03] MEDS: Thyroid 15 MG Tablet 45 MG PO (09:51)
[2019-05-03] MEDS: Aspirin E.C. 81 MG Tablet PO (09:51)
[2019-05-03] MEDS: dilTIAZem CD 120 MG Capsule PO ×2 (09:51→20:42)
[2019-05-03] MEDS: Pantoprazole Sodium 40 MG Tablet PO (09:51)
[2019-05-03] MEDS: Senna/Docusate Sodium 1 Tablet 2 TABLET PO (09:51)
[2019-05-03] MEDS: Doxazosin 1 MG Tablet 2 MG PO ×2 (09:51→20:41)
[2019-05-03] MEDS: Carvedilol 6.25 MG Tablet PO ×2 (09:52→20:41)
[2019-05-03] MEDS: Enoxaparin 40 MG/0.4 ML Syringe SC (09:52)
[2019-05-03] MEDS: NYSTATIN 500,000 UNIT/5 ML UDC 500000 UNIT PO ×3 (09:52→17:24)
--- NOTE | 2019-05-03 11:50 | PCM.PROGNOTE ---
<Tamera Díaz - Last Filed: 05/03/19 11:58> Subjective: Patient seen and examined. Feeling well. Denies abdominal pain. Denies shortness of breath. - Physical Exam Vitals/I&O's: Vital Signs Temp Pulse Resp BP Pulse Ox 97.7 F L 65 18 145/58 H 98 05/03/19 09:10 05/03/19 09:10 05/03/19 09:10 05/03/19 09:10 05/03/19 09:10 Oxygen Flow Rate (L/min) 2 Oxygen Delivery Method Nasal Cannula Weight: 150 lb 12.739 oz Body Mass Index (BMI) 28.0 Finger Stick Blood Glucose 111 Intake and Output for Last 24 Hours 05/01/19 05/02/19 05/03/19 23:59 23:59 23:59 Intake Total 2561.46 / 2561.46 470 / 470 Output Total 1675 / 1675 400 / 400 150 / 150 Balance 886.46 / 886.46 70 / 70 -150 / -150 General: Alert, Oriented x3, Cooperative HEENT: Atraumatic, PERRLA, EOMI, Normocephalic Neck: Supple, No JVD, Negative Carotid Bruits Lungs: Clear to auscultation, Diminished Cardiovascular: Regular rate, Regular Rhythm, Normal S1, Normal S2, No murmurs Abdomen: Bowel Sounds Present, Soft, Non Tender, Non-Distended Extremities: No clubbing, No cyanosis, No edema, Capillary Refill Less than 3 Seconds Skin: No rashes, No breakdown Musculoskeletal: No Tenderness to Palpation of Joints or Extremities Neurological: Cranial nerves II-XII grossly intact, - - Left upper extremity weakness/drift. Mild left lower extremity weakness. Recent CVA. Psych/Mental Status: Normal Affect, Appropriate Laboratory Results 05/03/19 05:40: WBC 5.7, RBC 3.24 L, Hgb 9.4 L, Hct 30.7 L, MCV 94.8, MCH 29.0, MCHC 30.6 L, RDW Std Deviation 59.8 H, RDW Coeff of Darrell 17.2 H, Plt Count 237, MPV 10.8 05/03/19 05:40: Sodium 143, Potassium 4.1, Chloride 112 H, Carbon Dioxide 27.0, Anion Gap 4 L, BUN 14, Creatinine 0.71, Estim Creat Clear Calc 33.86, Est GFR (MDRD) Af Amer 102, Est GFR (MDRD) Non-Af 84, BUN/Creatinine Ratio 19.7, Glucose 93, Calcium 8.7 Current Medications Acetaminophen (Tylenol) 650 mg PO Q6H PRN PRN PRN Reason: Pain Score 1-10/Temp > 100.7 F Last Admin: 05/01/19 20:29 Dose: 650 mg Documented by: Al Hydroxide/Mg Hydroxide (Mylanta Ii) 30 ml PO Q6H PRN PRN PRN Reason: HEARTBURN OR INDIGESTION Albuterol Sulfate (Ventolin Aerosols) 2.5 mg INHALATION Q2H PRN PRN PRN Reason: wheezing or SOB Albuterol/Ipratropium (Duoneb) 3 ml INHALATION Q6HWA.RT [facility] Last Admin: 05/03/19 06:58 Dose: 3 ml Documented by: Allopurinol (Zyloprim) 100 mg PO DINNER [facility] Last Admin: 05/02/19 18:02 Dose: 100 mg Documented by: Amoxicillin/Clavulanate Potassium ([facility]in [facility]mg/5ml) [facility] Stop: 05/07/19 17:01 Last Admin: 05/03/19 08:53 Dose: 400 mg Documented by: Aspirin (Ecotrin) 81 mg PO DAILY [facility] Last Admin: 05/03/19 09:51 Dose: 81 mg Documented by: Carvedilol (Coreg) 6.25 mg PO BID [facility] Last Admin: 05/03/19 09:52 Dose: 6.25 mg Documented by: Clonazepam (Klonopin) 0.5 mg PO 0 [facility] Last Admin: 05/02/19 21:22 Dose: 0.5 mg Documented by: Diltiazem HCl (Cardizem Cd) 120 mg PO BID [facility] Last Admin: 05/03/19 09:51 Dose: 120 mg Documented by: Doxazosin Mesylate (Cardura) 2 mg PO BID [facility] Last Admin: 05/03/19 09:51 Dose: 2 mg Documented by: Enoxaparin Sodium (Lovenox) 40 mg SC DAILY [facility] Last Admin: 05/03/19 09:52 Dose: 40 mg Documented by: Glucagon () 1 mg IM .X1 PRN PRN Reason: Hypoglycemia Haloperidol (Haldol) 2 mg PO Q4H PRN PRN PRN Reason: AGITATION Sodium Chloride () 250 mls @ 15 mls/hr IV .[id number] PRN PRN Reason: Saline Flush Sodium Chloride () 250 mls @ 15 mls/hr IV .[id number] PRN PRN Reason: Additional IVPB Infusion Dextrose (Dextrose 10%-Water) 250 mls @ 999 mls/hr IV .Q16M PRN; Protocol PRN Reason: HYPOGLYCEMIA Lidocaine (Lidoderm Patch) 1 patch TOPICAL DAILY [facility] Last Admin: 05/03/19 09:49 Dose: 1 patch Documented by: Loperamide HCl (Imodium) 2 mg PO Q4H PRN PRN PRN Reason: Diarrhea Magnesium Hydroxide (Milk Of Magnesia) 30 ml PO DAILY PRN PRN PRN Reason: Constipation Melatonin (Melatonin) 3 mg PO QHS [facility] Last Admin: 05/02/19 21:19 Dose: 3 mg Documented by: Nystatin (Nystatin) 500,000 unit PO 4X/DAY [facility] Last Admin: 05/03/19 09:52 Dose: 500,000 unit Documented by: Ondansetron HCl (Zofran) 4 mg IV Q8H PRN PRN PRN Reason: NAUSEA/VOMITING Last Admin: 04/30/19 13:58 Dose: 4 mg Documented by: Pantoprazole Sodium (Protonix) 40 mg PO DAILY [facility] Last Admin: 05/03/19 09:51 Dose: 40 mg Documented by: Polyethylene Glycol (Miralax) 17 gm PO DAILY [facility] Last Admin: 05/03/19 08:55 Dose: 17 gm Documented by: Quetiapine Fumarate (Seroquel) 50 mg PO QHS [facility] Last Admin: 05/02/19 21:11 Dose: Not Given Documented by: Senna/Docusate Sodium (Senokot-S, Yuliya-Colace) 2 tablet PO BID [facility] Last Admin: 05/03/19 09:51 Dose: 2 tablet Documented by: Sodium Chloride () 10 - 40 ml IV UD PRN PRN Reason: SALINE FLUSH Last Admin: 05/02/19 13:45 Dose: 10 ml Documented by: Thyroid (Cranford Thyroid) 45 mg PO DAILY [facility] Last Admin: 05/03/19 09:51 Dose: 45 mg Documented by: Medical Necessity - Tobacco Use Smoking Status: Never smoker Assessment/Plan All Active Problems (Last Reviewed 04/17/19 @ 10:45 by Francine Chapa DO) Dysphagia (Acute) Complicated UTI (urinary tract infection) (Resolved) Hypoxemia (Resolved) Nonspecific abnormal unspecified cardiovascular function study (Resolved) Dextrocardia (Ruled-out) 1. Acute on chronic hypoxic respiratory failure, suspect secondary to aspiration pneumonia vs fluid overload-chest x-ray shows diffuse infiltrates versus CHF. Patient did receive IV X2. Transition from IV Zosyn to oral Augmentin empirically to complete course. Speech therapy consult. Aspiration precautions. Repeat chest x-ray showed improvement in aeration in both lungs. Oxygen currently stable on chronic O2 requirements. BNP not significant. No lower extremity swelling. Patient to have barium swallow test and esophagram for further evaluation for aspiration. 2. Questionable early small bowel obstruction, resolved-initial abdominal x-ray on admission showed dilated small bowel loops, suggestive of incomplete small bowel obstruction or early small bowel obstruction. Small bowel follow-through showed no evidence of small bowel obstruction. Continue bowel regimen. Patient has had multiple bowel movements. Abdominal pain resolved. 3. Dysphagia, intermittent emesis-speech therapy consult. Barium esophagram ordered as noted above. Continue dietary modifications per speech therapy recommendations. 4. Chronic diastolic CHF- Recent echo at [facility] demonstrated an EF of 55%. 5. 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 Plan to return to rehab when stable. 6. Hypertension-stable, continue carvedilol, Cardizem regimen. 7. Hypothyroidism= continue home medication regimen. 8. CAD with history of CABG-continue aspirin, not on statin. 9. Anxiety with chronic benzodiazepine use-home Klonopin regimen decreased 0.5 mg nightly. Initiated on Seroquel 50 mg nightly due to nighttime delirium. PRN Haldol for increased agitation. CODE STATUS: DNR CCA DVT prophylaxis-Lovenox subcu Discharge planning: Patient's daughter would like her to go to [facility] at discharge, [facility] pending acceptance and insurance approval. This patient was seen by PIPER Cabrera under the supervision of Dr. Cobian. <John Cobian - Last Filed: 05/03/19 13:20> Subjective: Seen and examined. No abdominal pain or distention. Patient moved bowel movement. No shortness of breath. Objective: General: Alert, Oriented x3, Cooperative HEENT: Atraumatic, PERRLA, EOMI, Normocephalic Neck: Supple, No JVD, Negative Carotid Bruits Lungs: air entry diminished in bilateral lung bases. Chronic bilateral coarse crepitation secondary to ILD Cardiovascular: Regular rate, Normal S1, Normal S2, No murmurs Abdomen: Bowel Sounds Present, Soft, Non Tender, Non-Distended Extremities: No edema, Capillary Refill Less than 3 Seconds Skin: No rashes, No breakdown Musculoskeletal: No Tenderness to Palpation of Joints or Extremities, Arthritic Changes, Muscle Wasting - Left upper and lower extremity Neurological: Cranial nerves II-XII grossly intact, Unsteady Gait, - - Left upper extremity weakness/drift. Left-sided weakness Psych/Mental Status: Normal Affect, Appropriate - Physical Exam Vitals/I&O's: Vital Signs Temp Pulse Resp BP Pulse Ox 97.7 F L 65 18 145/58 H 98 05/03/19 09:10 05/03/19 09:10 05/03/19 09:10 05/03/19 09:10 05/03/19 09:10 Oxygen Flow Rate (L/min) 1 Oxygen Delivery Method Nasal Cannula Weight: 150 lb 12.739 oz Body Mass Index (BMI) 28.0 Finger Stick Blood Glucose 111 Intake and Output for Last 24 Hours 05/01/19 05/02/19 05/03/19 23:59 23:59 23:59 Intake Total 2561.46 / 2561.46 470 / 470 Output Total 1675 / 1675 400 / 400 150 / 150 Balance 886.46 / 886.46 70 / 70 -150 / -150 Laboratory Results 05/03/19 05:40: WBC 5.7, RBC 3.24 L, Hgb 9.4 L, Hct 30.7 L, MCV 94.8, MCH 29.0, MCHC 30.6 L, RDW Std Deviation 59.8 H, RDW Coeff of Darrell 17.2 H, Plt Count 237, MPV 10.8 05/03/19 05:40: Sodium 143, Potassium 4.1, Chloride 112 H, Carbon Dioxide 27.0, Anion Gap 4 L, BUN 14, Creatinine 0.71, Estim Creat Clear Calc 33.86, Est GFR (MDRD) Af Amer 102, Est GFR (MDRD) Non-Af 84, BUN/Creatinine Ratio 19.7, Glucose 93, Calcium 8.7 Current Medications Acetaminophen (Tylenol) 650 mg PO Q6H PRN PRN PRN Reason: Pain Score 1-10/Temp > 100.7 F Last Admin: 05/01/19 20:29 Dose: 650 mg Documented by: Al Hydroxide/Mg Hydroxide (Mylanta Ii) 30 ml PO Q6H PRN PRN PRN Reason: HEARTBURN OR INDIGESTION Albuterol Sulfate (Ventolin Aerosols) 2.5 mg INHALATION Q2H PRN PRN PRN Reason: wheezing or SOB Albuterol/Ipratropium (Duoneb) 3 ml INHALATION Q6HWA.RT [facility] Last Admin: 05/03/19 12:22 Dose: 3 ml Documented by: Allopurinol (Zyloprim) 100 mg PO DINNER [facility] Last Admin: 05/02/19 18:02 Dose: 100 mg Documented by: Amoxicillin/Clavulanate Potassium (Augmentin Suspension [facility]mg/5ml) [facility] Stop: 05/07/19 17:01 Last Admin: 05/03/19 08:53 Dose: 400 mg Documented by: Aspirin (Ecotrin) 81 mg PO DAILY [facility] Last Admin: 05/03/19 09:51 Dose: 81 mg Documented by: Carvedilol (Coreg) 6.25 mg PO BID [facility] Last Admin: 05/03/19 09:52 Dose: 6.25 mg Documented by: Clonazepam (Klonopin) 0.5 mg PO 2130 [facility] Last Admin: 05/02/19 21:22 Dose: 0.5 mg Documented by: Diltiazem HCl (Cardizem Cd) 120 mg PO BID [facility] Last Admin: 05/03/19 09:51 Dose: 120 mg Documented by: Doxazosin Mesylate (Cardura) 2 mg PO BID [facility] Last Admin: 05/03/19 09:51 Dose: 2 mg Documented by: Enoxaparin Sodium (Lovenox) 40 mg SC DAILY [facility] Last Admin: 05/03/19 09:52 Dose: 40 mg Documented by: Glucagon () 1 mg IM .X1 PRN PRN Reason: Hypoglycemia Haloperidol (Haldol) 2 mg PO Q4H PRN PRN PRN Reason: AGITATION Sodium Chloride () 250 mls @ 15 mls/hr IV .[id number] PRN PRN Reason: Saline Flush Sodium Chloride () 250 mls @ 15 mls/hr IV .[id number] PRN PRN Reason: Additional IVPB Infusion Dextrose (Dextrose 10%-Water) 250 mls @ 999 mls/hr IV .Q16M PRN; Protocol PRN Reason: HYPOGLYCEMIA Lidocaine (Lidoderm Patch) 1 patch TOPICAL DAILY [facility] Last Admin: 05/03/19 09:49 Dose: 1 patch Documented by: Loperamide HCl (Imodium) 2 mg PO Q4H PRN PRN PRN Reason: Diarrhea Magnesium Hydroxide (Milk Of Magnesia) 30 ml PO DAILY PRN PRN PRN Reason: Constipation Melatonin (Melatonin) 3 mg PO QHS [facility] Last Admin: 05/02/19 21:19 Dose: 3 mg Documented by: Nystatin (Nystatin) 500,000 unit PO 4X/DAY [facility] Last Admin: 05/03/19 09:52 Dose: 500,000 unit Documented by: Ondansetron HCl (Zofran) 4 mg IV Q8H PRN PRN PRN Reason: NAUSEA/VOMITING Last Admin: 04/30/19 13:58 Dose: 4 mg Documented by: Pantoprazole Sodium (Protonix) 40 mg PO DAILY [facility] Last Admin: 05/03/19 09:51 Dose: 40 mg Documented by: Polyethylene Glycol (Miralax) 17 gm PO DAILY [facility] Last Admin: 05/03/19 08:55 Dose: 17 gm Documented by: Quetiapine Fumarate (Seroquel) 50 mg PO QHS [facility] Last Admin: 05/02/19 21:11 Dose: Not Given Documented by: Senna/Docusate Sodium (Senokot-S, Yuliya-Colace) 2 tablet PO BID [facility] Last Admin: 05/03/19 09:51 Dose: 2 tablet Documented by: Sodium Chloride () 10 - 40 ml IV UD PRN PRN Reason: SALINE FLUSH Last Admin: 05/02/19 13:45 Dose: 10 ml Documented by: Thyroid (Cranford Thyroid) 45 mg PO DAILY [facility] Last Admin: 05/03/19 09:51 Dose: 45 mg Documented by: Assessment/Plan This patient was seen in conjunction with Tamera BAILEY. I have independently interviewed and examined the patient and reviewed pertinent history, examination findings, laboratory and plan of management. I have reviewed the note and agree with the documented findings with the few additional points. In brief, patient is admitted for acute shortness of breath for about 1 day. Chest x-ray independently reviewed and shows bilateral hilar and infrahilar alveolar congestion with bilateral peripheral and lower lobes reticular changes suggestive of chronic interstitial disease. BNP is slightly elevated but not high. Lasix was given. There is suspicion of possible aspiration pneumonia therefore on aspiration precaution along with IV Zosyn. Repeat chest x-ray shows improvement in central congestion. Bilateral residual reticular changes persist. Abdominal x-ray shows dilated small bowel loops with air-fluid level in gases and distal colon rectum. Small bowel barium follow-through was done and shows contrast in the right colon in 90 minutes therefore no evidence of small bowel obstruction. Patient has fecal residue and had good bowel movement on stool softeners. Modified barium swallow and barium esophagram to rule out dysphagia; most probably will be done on Saturday Possible acute on chronic diastolic heart failure: Recent echo in [facility] shows EF 55%. Pulmonary congestion is cleared. Continue bronchodilator treatment as needed for interstitial lung disease Other chronic comorbidities include recent right thalamus hemorrhagic CVA, inclusion body myositis, hypertension, hypothyroidism, coronary artery disease history of CABG, anxiety and mild insomnia: Home medications reconciliation done. CODE STATUS: DNR CC arrest. Total time of the visit including total time spent in counseling or coordination of care, (more than 50% of the total time, spent in obtaining medical information from nurses and other ancillary care providers), discussion with patient and nursing staff, review of labs and imaging is 25 minutes Code Visit Inpatient E&M: 11158 [facility] L2
[2019-05-03] MEDS: Allopurinol 100 MG Tablet PO (17:24)
[2019-05-03] MEDS: clonazePAM 0.5 MG Tablet PO (20:42)
[2019-05-03] MEDS: Acetaminophen 325 MG Tablet 650 MG PO (20:42)
[2019-05-03] MEDS: MELATONIN 3 MG TABLET PO (20:42)
[2019-05-04] VITALS (13 sets, daily range): BP systolic 138–155; BP diastolic 54–76; PULSE 58–78; RESP 14–20; TEMP 36.4–36.8; O2SAT 95–98
[2019-05-04] MEDS: Ipratropium/Albuterol Sulfate 3 ML AMPUL.NEB INHALATION ×3 (07:58→19:20)
[2019-05-04] MEDS: Doxazosin 1 MG Tablet 2 MG PO ×2 (09:17→21:36)
[2019-05-04] MEDS: Aspirin E.C. 81 MG Tablet PO (09:17)
[2019-05-04] MEDS: dilTIAZem CD 120 MG Capsule PO ×2 (09:17→21:36)
[2019-05-04] MEDS: Carvedilol 6.25 MG Tablet PO ×2 (09:17→21:37)
[2019-05-04] MEDS: NYSTATIN 500,000 UNIT/5 ML UDC 500000 UNIT PO ×4 (09:18→21:36)
[2019-05-04] MEDS: Polyethylene Glycol 3350 17 GM PACKET PO (09:18)
[2019-05-04] MEDS: Senna/Docusate Sodium 1 Tablet 2 TABLET PO ×2 (09:18→21:37)
[2019-05-04] MEDS: Enoxaparin 40 MG/0.4 ML Syringe SC (09:18)
[2019-05-04] MEDS: Lidocaine 5% Patch 1 PATCH TOPICAL (09:18)
[2019-05-04] MEDS: Pantoprazole Sodium 40 MG Tablet PO (09:18)
[2019-05-04] MEDS: Thyroid 15 MG Tablet 45 MG PO (09:19)
[2019-05-04] MEDS: Amox/Clav 400mg/5ml Susp 400 MG PO ×2 (09:20→17:44)
--- NOTE | 2019-05-04 10:30 | CASEMGMT ---
aJcey from [facility] came to see patient. He talked with patient's RN. He said they should be able to accept patient pending insurance approval. SONNY faxed information to [facility] for insurance authorization. SONNY also received a call from patient's daughter, Kaity. SONNY let her know above. Stephie DUNCAN MSW
--- NOTE | 2019-05-04 12:00 | SP.MBSS_ITS ---
PRIMARY / SECONDARY DIAGNOSIS: dysphagia (R13.10) REFERRING PHYSICIAN: ANNMARIE CabreraC CURRENT DIET: mechanical soft textures, nectar thickened liquids DENTITION: WFL MENTAL STATUS: sufficient for participation RESPIRATORY STATUS: O2 at 2L/min via nasal cannula. REASON FOR REFERRAL: The Patient is an 78 year old female referred for a modified barium swallow (MBS) study to objectively assess the Patients oropharyngeal swallow function under fluoroscopy secondary to concerns for persistent aspiration status post hemorrhagic cerebrovascular accident involving the right thalamus (04/08/2019), with current acute care admission secondary to aspiration pneumonia vs. fluid overload. 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 ADDITIONAL OBJECTIVE ASSESSMENT RESULTS: 05/01/2019 chest x-ray revealed interval improvement of both lungs; mild residual changes persist. 04/30/2019 chest x-ray revealed increased interstitial markings in both lungs with areas of confluence. ASSESSMENT PARAMETERS: The Patient participated in a Modified Barium Swallow (MBS) study on 05/04/2019. This study was recorded in the lateral view and images were sent to PACs for storage. Scoring was completed through each trial using the 8- point Penetration-Aspiration Scale (PAS) and the Videofluoroscopic Scale Score (VSS), and summarized via the Videofluoroscopic Dysphagia Scale (VDS) and the Bolus Residue Scale (BRS), with severity scoring through the Dysphagia Severity Rating Scale (DSRS) and the Swallowing Performance Scale (SPS), and recommended diet textures through the International Dysphagia Diet Standardisation Initiative (IDDSI) RESULTS OF THE EVALUATION: The Patient presents with moderate oropharyngeal dysphagia (DSRS: 4; SPS: 5) with grade III SILENT aspiration of thin liquids, and grade II overt aspiration of nectar thickened liquids secondary to a recent hemorrhagic cerebrovascular accident involving the right thalamus (04/08/2019) OBJECTIVE ASSESSMENT OF SWALLOW FUNCTION (QUANTITATIVE ? PER TRIAL): PENETRATION / ASPIRATION SCALE (VILCHIS): 1 = does not enter airway 2 = enters airway/above vocal folds/ejected 3 = enters airway/above vocal folds/not ejected 4 = enters airway/contacts vocal folds/ejected 5 = enters airway/contacts vocal folds/not ejected 6 = enters airway/below vocal folds/ejected 7 = enters airway/below vocal folds/not ejected despite effort 8 = enters airway/below vocal folds/no effort VIDEOFLOROSCOPIC SCALE SCORE (VILCHIS): Grade I = aspiration of material that has penetrated into the laryngeal vestibule, intact cough reflex Grade II = aspiration < 10 % of the bolus, intact cough reflex Grade III = aspiration of < 10 % of the bolus, reduced cough reflex or aspiration of > 10 % of the bolus, intact cough reflex Grade IV = aspiration of > 10 % of the bolus, reduced cough reflex PENETRATION / ASPIRATION SCALE (SCORE) WITH VIDEOFLOROSCOPIC SCALE SCORE: Thin liquid - 5 mL tsp.: 5* Thin liquids via straw (single sip): 5 Thin liquids via straw (single sip): 8 ? Grade III [place] thickened liquids via straw (single sip): 2 [place] thickened liquids via straw (single sip): 1 [place] thickened liquids via straw (single sip): 6 ? Grade II [place] thickened liquids via straw (single sip): 6 ? Grade II [place] thickened liquids via straw (single sip): 2 Honey thickened liquids via straw (single sip): 1 Honey thickened liquids via straw (single sip): 1 Pudding via spoon: 1 Regular textured cookie: 1 * denotes post prandial cough following imaging termination OBJECTIVE ASSESSMENT OF SWALLOW FUNCTION (QUANTITATIVE ? AGGREGATE): VIDEOFLOROSCOPIC DYSPHAGIA SCALE (VDS): LIP CLOSURE: 0 (of 4) Intact BOLUS FORMATION: 0 (of 6) Intact MASTICATION: 4 (of 8) Inadequate APRAXIA: 0 (of 4.5) None TONGUE TO PALATE CONTACT: 0 (of 10) Intact PREMATURE BOLUS LOSS: 0 (of 4.5) None ORAL TRANSIT TIME: 0 (of 3) < 1.5s TRIGGERING OF PHARYNGEAL SWALLOW: 4.5 (of 4.5) Delayed VALLECULAR RESIDUE: 4 (of 6) 10-50% LARYNGEAL ELEVATION: 9 (of 9) Impaired PYRIFORM SINUS RESIDUE: 4.5 (of 13.5) <10% COATING OF PHARYNGEAL WALL: 0 (of 9) No PHARYNGEAL TRANSIT TIME: 0 (of 6) <1.0s ASPIRATION: 12 (of 12) Subglottic aspiration BOLUS RESIDUE SCALE (BRS): 2 (of 6) residue in valleculae OBJECTIVE ASSESSMENT OF SWALLOW FUNCTION (SEVERITY GRADING): DYSPHAGIA SEVERITY RATING SCALE (DSRS): 4 (moderate) SWALLOWING PERFORMANCE SCALE (SPS): 5 (moderate) OBJECTIVE ASSESSMENT OF SWALLOW FUNCTION (QUALITATIVE): ORAL PREPARATORY PHASE: mildly prolonged mastication; sufficient anterior oral containment during oral manipulation; preserved management of breathing / bolus formation ORAL TRANSITIONAL PHASE: sufficient bolus transportation; no lingual discoordination (no tremor / undulations), with delays in swallow onset associated with intermittent confusion with directions (intermittently held following initial cued hold), with an immediate onset with verbal cueing; sufficient oral clearance; sufficient oral containment across textures with no presence of premature posterior bolus loss. PHARYNGEAL PHASE: consistent pharyngeal swallow dyssynchrony resulting in prandial penetration and eventual aspiration of thin and nectar thickened liquids; reduced hyolaryngeal excursion and duration with insufficient laryngeal vestibule pressure generated to completely expel penetrated material; mild pharyngeal dysmotility with consolidation primarily within the vallecula with thicker viscosities; no signs of velopharyngeal impairments. ESOPHAGEAL PHASE: there was evidence of delayed esophageal clearance, with what appeared to be non-propulsive, transient, and intermittent contractions suggesting tertiary contractions (discussed with Dr. Roman post assessment); no further obvious esophageal phase abnormalities observed. CONTRIBUTING / COMPLICATING FACTORS AND NOTABLE FINDINGS: inconsistent weak cough in response to tracheobronchial aspiration (dystussia); persistent fluctuations in cognitive sufficiency (delirium, post stroke cognitive impairments, hallucinations, etc.) that preclude extensive implementation of compensatory measures. DYSPHAGIA ASSOCIATED MEDICAL CONSIDERATIONS / INTERVENTION CONSIDERATIONS: The Patient was noted to SILENTLY aspirate with thin liquids (smaller volumes), with clinical assessment at bedside relying on identification of classic overt signs and symptoms of aspiration considered unreliable. I would strongly discourage advancement past nectar thickened liquids without completion of a repeat modified barium swallow study due to the presence of aspiration identified that was SILENT in nature. I would recommend a repeat modified barium swallow study within 4 - 6 weeks (if clinically appropriate) to further assess the presence and extent of silent and overt aspiration prior to advancement to a less restrictive diet. I would consider the Patient to be at a higher risk of aspiration related medical complications / aspiration pneumonia / aspiration related pulmonary syndrome secondary to her recent cerebrovascular accident and subsequent dysphagia and cognitive based alterations, the extensive pharyngeal phase impairment with the presence of SILENT aspiration identified under fluoroscopy, her potential for tracheobronchial aspiration of more dense viscosities, her history of esophageal motility disorders, her compromised airway defenses (dystussia), and her non-ambulatory status with hemiparesis. I would recommend continued careful monitoring of pulmonary functioning. I would consider this Patient to be a high risk for malnutrition and dehydration due to the extent of recommended liquid viscosities / diet texture restrictions, and the related negative impact on palatability / intake pleasure / quality of life and anticipated smaller PO intake quantities, higher risk for early satiety with recommended thicker viscosities, and reduced rate of intake with slower viscosities, presence / extent of cognitive impairments, recent cerebrovascular accident (up to 24% of acute stroke admission are at risk of malnutrition), the Patients advanced age (up to 55% of frail older patients with dysphagia present or are at risk of malnutrition), and the significance of dysphagia. The Patient may require intervention to reduce the risk of malnutrition, with considerations for food enrichment and oral nutritional supplementation. I would consider re- implementation of the [place] Free [place] Protocol (FFWP) following Patient and family education IF the Patient has the adequate level of supervision post discharge to continue implementation, and if deemed clinically appropriate. I would consider the Patent to be at a higher risk of oropharyngeal colonization with respiratory pathogens secondary to the Patient?s advanced age, the presence of xerostomia, and the recent use of antibiotics possibly provoking a variety of respiratory pa. Aspiration of saliva contaminated with pathogens can lead to pulmonary infections, with creation, implementation, and adherence to an aggressive oral and dental care program is essential, particularly given the Patients inability to independently perform oral care. I will continue to recommend an aggressive oral care program to reduce the risk of abnormal oropharyngeal colonization. INTERVENTION RECOMMENDATIONS AND CONSIDERATIONS: The Patient requires intensive skilled speech-language intervention targeting diet texture management and training / implementation of recommended compensatory strategies; training and implementation of recommended oropharyngeal strengthening exercises to facilitate improved laryngeal vestibule closure / pressure; training and implementation of a home oral care protocol to reduce the effects of xerostomia and improve / maintain the integrity of the oral mucosa reducing the risk of aspiration related pulmonary complications; considerations for neuromuscular electrical stimulation (NMES) / VitalStim; training, implementation, and Patient / caregiver education regarding implementation of the [place] Free [place] Protocol (FFWP); Patient education regarding stroke associated dysphagia; Patient and caregiver education regarding safe PO intake strategies (visual cueing, consistently, visual models); and Patient / caregiver training targeting meal preparation / thickened liquid preparation if unable to advance to baseline diet textures prior to any eventual discharge. POST ASSESSMENT EDUCATION: Results and recommendations were discussed with the Patient immediately following MBS completion, with the Patient verbalizing understanding and agreement with all recommendations and education provided. DIET TEXTURE RECOMMENDATIONS: Will recommend a mechanical soft textured (IDDSI: 5), honey thickened liquid (IDDSI: 3) diet RECOMMENDED COMPENSATORY STRATEGIES: Supervision with assistance as needed, reduced bolus volume / rate of ingestion, seated upright at 90 degrees during PO intake, remain upright for 30-60 minutes post meal (GERD precaution), medications one at a time with purees. IMAGE COUNT: 1978 Prem Chavez M.A., GUSTAVO-MOVIE EDITOR, CBIS MBSImP Certified, LSVT Certified [facility] Speech-Language Pathology Department [email or web address]
--- NOTE | 2019-05-04 14:00 | CASEMGMT ---
SW received a voice mail from Dayna at [facility] and she approved patient for SNF. Stephie DUNCAN MSW
--- NOTE | 2019-05-04 15:22 | PCM.PN.HOSP ---
Reason for Visit: Shortness of breath and respiratory distress. Seen and examined. Patient does not have shortness of breath or chest pain. Patient is moving bowel movement regularly. Patient is going for modified barium swallow and barium esophagram. Vitals/I&O's: Vital Signs Temp Pulse Resp BP Pulse Ox 97.7 F L 68 14 138/54 H 96 05/04/19 09:20 05/04/19 11:00 05/04/19 09:20 05/04/19 09:20 05/04/19 09:20 Oxygen Flow Rate (L/min) 2 Oxygen Delivery Method Nasal Cannula Weight: 148 lb 2.41 oz Body Mass Index (BMI) 28.0 Finger Stick Blood Glucose 111 Intake and Output for Last 24 Hours 05/02/19 05/03/19 05/04/19 23:59 23:59 23:59 Intake Total 470 / 470 800 / 800 240 / 240 Output Total 400 / 400 1450 / 1450 275 / 275 Balance 70 / 70 -650 / -650 -35 / -35 General: Alert, Oriented x3, Cooperative HEENT: Atraumatic, PERRLA, EOMI, Normocephalic Oral: No Gingival or Mucosal Lesions/ Ulcerations Neck: Supple, No JVD, Negative Carotid Bruits Lungs: Diminished - Air entry diminished in bilateral lung bases., Rales - Chronic coarse rales present in bilateral lung bases. Cardiovascular: Regular rate, Regular Rhythm, Normal S1, Normal S2, No murmurs Abdomen: Bowel Sounds Present, Soft, Non Tender, Non-Distended Extremities: No edema, Capillary Refill Less than 3 Seconds Skin: No rashes, No breakdown Musculoskeletal: No Tenderness to Palpation of Joints or Extremities, Arthritic Changes, Muscle Wasting Neurological: Deep Tendon Reflexes 2+/4 and Symmetrical, - - Left-sided weakness. Oropharyngeal dysphagia. Psych/Mental Status: Normal Affect, Appropriate Current Medications Acetaminophen (Tylenol) 650 mg PO Q6H PRN PRN PRN Reason: Pain Score 1-10/Temp > 100.7 F Last Admin: 05/03/19 20:42 Dose: 650 mg Documented by: Al Hydroxide/Mg Hydroxide (Mylanta Ii) 30 ml PO Q6H PRN PRN PRN Reason: HEARTBURN OR INDIGESTION Albuterol Sulfate (Ventolin Aerosols) 2.5 mg INHALATION Q2H PRN PRN PRN Reason: wheezing or SOB Albuterol/Ipratropium (Duoneb) 3 ml INHALATION Q6HWA.RT [facility] Last Admin: 05/04/19 13:21 Dose: 3 ml Documented by: Allopurinol (Zyloprim) 100 mg PO DINNER [facility] Last Admin: 05/03/19 17:24 Dose: 100 mg Documented by: Amoxicillin/Clavulanate Potassium (Augmentin Suspension 400mg/5ml) [facility] Stop: 05/07/19 17:01 Last Admin: 05/04/19 09:20 Dose: 400 mg Documented by: Aspirin (Ecotrin) 81 mg PO DAILY [facility] Last Admin: 05/04/19 09:17 Dose: 81 mg Documented by: Carvedilol (Coreg) 6.25 mg PO BID [facility] Last Admin: 05/04/19 09:17 Dose: 6.25 mg Documented by: Clonazepam (Klonopin) 0.5 mg PO 2130 [facility] Last Admin: 05/03/19 20:42 Dose: 0.5 mg Documented by: Diltiazem HCl (Cardizem Cd) 120 mg PO BID [facility] Last Admin: 05/04/19 09:17 Dose: 120 mg Documented by: Doxazosin Mesylate (Cardura) 2 mg PO BID [facility] Last Admin: 05/04/19 09:17 Dose: 2 mg Documented by: Enoxaparin Sodium (Lovenox) 40 mg SC DAILY [facility] Last Admin: 05/04/19 09:18 Dose: 40 mg Documented by: Glucagon () 1 mg IM .X1 PRN PRN Reason: Hypoglycemia Haloperidol (Haldol) 2 mg PO Q4H PRN PRN PRN Reason: AGITATION Sodium Chloride () 250 mls @ 15 mls/hr IV .[id number] PRN PRN Reason: Saline Flush Sodium Chloride () 250 mls @ 15 mls/hr IV .[id number] PRN PRN Reason: Additional IVPB Infusion Dextrose (Dextrose 10%-Water) 250 mls @ 999 mls/hr IV .Q16M PRN; Protocol PRN Reason: HYPOGLYCEMIA Lidocaine (Lidoderm Patch) 1 patch TOPICAL DAILY [facility] Last Admin: 05/04/19 09:18 Dose: 1 patch Documented by: Loperamide HCl (Imodium) 2 mg PO Q4H PRN PRN PRN Reason: Diarrhea Magnesium Hydroxide (Milk Of Magnesia) 30 ml PO DAILY PRN PRN PRN Reason: Constipation Melatonin (Melatonin) 3 mg PO QHS [facility] Last Admin: 05/03/19 20:42 Dose: 3 mg Documented by: Nystatin (Nystatin) 500,000 unit PO 4X/DAY [facility] Last Admin: 05/04/19 13:42 Dose: 500,000 unit Documented by: Ondansetron HCl (Zofran) 4 mg IV Q8H PRN PRN PRN Reason: NAUSEA/VOMITING Last Admin: 04/30/19 13:58 Dose: 4 mg Documented by: Pantoprazole Sodium (Protonix) 40 mg PO DAILY [facility] Last Admin: 05/04/19 09:18 Dose: 40 mg Documented by: Polyethylene Glycol (Miralax) 17 gm PO DAILY [facility] Last Admin: 05/04/19 09:18 Dose: 17 gm Documented by: Quetiapine Fumarate (Seroquel) 50 mg PO QHS [facility] Last Admin: 05/03/19 20:38 Dose: Not Given Documented by: Senna/Docusate Sodium (Senokot-S, Yuliya-Colace) 2 tablet PO BID [facility] Last Admin: 05/04/19 09:18 Dose: 2 tablet Documented by: Sodium Chloride () 10 - 40 ml IV UD PRN PRN Reason: SALINE FLUSH Last Admin: 05/02/19 13:45 Dose: 10 ml Documented by: Thyroid ([place] Thyroid) 45 mg PO DAILY [facility] Last Admin: 05/04/19 09:19 Dose: 45 mg Documented by: Medical Necessity - Tobacco Use Smoking Status: Never smoker Assessment/Plan All Active Problems (Last Reviewed 04/17/19 @ 10:45 by Francine Chapa DO) Dysphagia (Acute) Complicated UTI (urinary tract infection) (Resolved) Hypoxemia (Resolved) Nonspecific abnormal unspecified cardiovascular function study (Resolved) Dextrocardia (Ruled-out) The patient is 78-year-old female admitted for acute shortness of breath for about 1 day. 1. Acute on chronic hypoxic respiratory failure, most likely secondary to fluid overload and aspiration pneumonia: Chest x-ray independently reviewed and shows bilateral hilar and infrahilar alveolar congestion with bilateral peripheral and lower lobes reticular changes suggestive of chronic interstitial disease. BNP is slightly elevated but not high. Lasix was given. Repeat chest x-ray shows improvement in central congestion. Bilateral residual reticular changes persist. 2. Possible aspiration pneumonia with oropharyngeal dysphagia: Patient had modified barium swallow today shows moderate oropharyngeal dysphagia with silent aspiration of thin liquids secondary to recent hemorrhagic CVA involving right thalamus. On mechanical soft diet and honey thickened liquids as per speech therapist recommendation. Feeding on supervision at upright seated 90 position. There is suspicion of aspiration pneumonia therefore on aspiration precaution along with IV Zosyn. 3. Questionable early small bowel obstruction, resolved:-initial abdominal x-ray on admission showed dilated small bowel loops, suggestive of incomplete small bowel obstruction or early small bowel obstruction. Small bowel follow-through showed no evidence of small bowel obstruction. Continue bowel regimen. Patient has had multiple bowel movements. Abdominal pain resolved. 4. Acute on chronic diastolic CHF- [facility] an EF of 55%. Patient improved with Lasix dose. BNP was not high 5. 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 Plan to return to rehab when stable. 6. Hypertension-stable, continue carvedilol, Cardizem regimen. 7. Hypothyroidism= continue home medication regimen. 8. CAD with history of CABG-continue aspirin, not on statin. 9. Anxiety with chronic benzodiazepine use-home Klonopin regimen decreased 0.5 mg nightly. Initiated on Seroquel 50 mg nightly due to nighttime delirium. PRN Haldol for increased agitation. CODE STATUS: DNR CCA Total time of the visit including total time spent in counseling or coordination of care, (more than 50% of the total time, spent in obtaining medical information from nurses and other ancillary care providers), discussion with patient and nursing staff, review of labs and imaging is 25 minutes Discharge planning: TCU Code Visit Inpatient E&M: [id number] Subs Hosp L2
[2019-05-04] MEDS: Allopurinol 100 MG Tablet PO (17:43)
[2019-05-04] MEDS: QUEtiapine 25 MG Tablet 50 MG PO (21:37)
[2019-05-04] MEDS: MELATONIN 3 MG TABLET PO (21:37)
[2019-05-04] MEDS: clonazePAM 0.5 MG Tablet PO (21:44)
[2019-05-05 02:49] VITALS: PULSE 77
[2019-05-05 03:30] VITALS: BP 151/68; PULSE 79; RESP 17; TEMP 36.8; O2SAT 98
[2019-05-05 07:40] VITALS: PULSE 70
[2019-05-05 07:41] VITALS: PULSE 71; RESP 16; O2SAT 98
[2019-05-05] MEDS: Ipratropium/Albuterol Sulfate 3 ML AMPUL.NEB INHALATION (07:41)
[2019-05-05] MEDS: Amox/Clav 400mg/5ml Susp 400 MG PO (08:36)
--- NOTE | 2019-05-05 09:28 | PCM.EXTCARCO ---
- Diet 05/01/19 13:49 Diet: Regular Diet Food consistency:: Mechanical Soft/Ground Liquid Consistency:: Honey Thick Is pt able to select menu?: Yes Diet Comments: Close 1:1 supervision; seated at 90 degrees; meds whole w/ purees - Routine Orders/Code Status Enema Type: Fleetz Enema Frequency: Daily PRN Suppository Type: Dulcolax 10mg Suppository Frequency: Daily PRN O2 Liters per Minute: 2-3 O2 Frequency: Continuous Keep PO Greater than or Equal to (%): 90 Routine Lab Work: CBC, BMP, - - Q Week Code [facility] - Suggestions for Active Care Change Position every (hours): 2 Times a day to sit in chair: 3 - Therapies Physical Therapy: Eval and Treat Occupational Therapy: Eval and Treat Speech Therapy: Eval and Treat - Problem/Diagnosis (1) Hemorrhagic cerebrovascular accident (CVA) Status: Chronic Comment: Right thalamus 04/08/2019 Current Visit: No (2) Hypertension Status: Chronic Current Visit: No (3) Hypothyroidism Status: Chronic Current Visit: No (4) Gout Status: Chronic Current Visit: No (5) Chronic hypoxemic respiratory failure Status: Chronic Current Visit: No (6) Chronic diastolic (congestive) heart failure Status: Chronic Current Visit: No (7) Complicated UTI (urinary tract infection) Status: Resolved Current Visit: No (8) Anxiety Status: Chronic Comment: On clonazepam Current Visit: No (9) Dysphagia Status: Acute Current Visit: No (10) Overweight (BMI 25.0-29.9) Status: Chronic Current Visit: No (11) Spinal stenosis Status: Chronic Current Visit: No (12) Restrictive lung disease Status: Chronic Comment: Severe Current Visit: No (13) History of polymyalgia rheumatica Status: Chronic Current Visit: No (14) Atherosclerosis of coronary artery of [place] heart without angina pectoris Status: Chronic Comment: CABG x 2: DEVRIES-LCx, PJ-D1 10/04/2010 Current Visit: No (15) H/O coronary artery bypass surgery Status: Chronic Comment: CABG x 2: DEVRIES-LCx, PJ-D1 10/04/2010 Current Visit: No (16) Inclusion body myositis Status: Chronic Current Visit: No - Allergies/Procedures Done in Hospital Allergies/Adverse Reactions: Allergies hydrochlorothiazide Allergy (Verified 01/06/19 12:31) Swelling lisinopril Allergy (Verified 01/06/19 12:31) Swelling codeine Adverse Reaction (Severe, Verified 01/06/19 12:31) Unknown prednisone Adverse Reaction (Severe, Verified 01/06/19 12:31) Unknown paroxetine [From Paxil] Adverse Reaction (Intermediate, Verified 01/06/19 12:31) Agitation amiodarone Adverse Reaction (Verified 01/06/19 12:31) Other i went out of my head Corticosteroids (Glucocorticoids) Adverse Reaction (Verified 01/06/19 12:31) Other hyper diphenhydramine HCl [From Benadryl] Adverse Reaction (Verified 01/06/19 12:31) Other hyper morphine Adverse Reaction (Verified 01/06/19 12:) Other it just paralyzes me. I will take it if in an end of life situation amlodopine Adverse Reaction (Severe, Uncoded 01/06/19 12:31) Flushing, nervousness Many foods Adverse Reaction (Severe, Uncoded 01/06/19 12:31) Hives Procedures: - - Modified barium swallow - Type of Care/Length of Stay Estimated LOS: Convalescent Care Less Than 30 days Type of Care Needed: Skilled Rehab Potential: Fair Prognosis: Fair - Additional Orders/Day of Discharge H&P will serve as current which was dated: 04/30/19 Day of Discharge: 05/05/19 - Dietary and Speech Recommendations Dietitian Recommendations/Changes: Continue regular diet, consistency per CONFERENCE DIRECTOR - Follow Up Care Primary Care Physician: Tamera Zepeda, ALODIZE MACHINE OPERATOR-C [Primary Care Provider] - Please follow up with your Primary Care Physician in: 1 Week
[2019-05-05 09:30] VITALS: BP 143/53; PULSE 69; RESP 16; TEMP 36.6; O2SAT 98
--- NOTE | 2019-05-05 09:57 | CASEMGMT ---
Patient is ready for discharge to [facility]. SONNY faxed orders to [facility]. Called [facility] and arranged for patient to get picked up at 1130 via cot. SONNY notified RN, patient's daughter, Jacey at [facility], paralegal secretary, patient, and LIBRARIAN HEAD. Convalescent completed on HENS. Plan: d/c to [facility] [facility] under skilled level of care. [facility] transported via cot. Stephie DUNCAN MSW
[2019-05-05] MEDS: Enoxaparin 40 MG/0.4 ML Syringe SC (10:09)
[2019-05-05] MEDS: Thyroid 15 MG Tablet 45 MG PO (10:10)
[2019-05-05] MEDS: dilTIAZem CD 120 MG Capsule PO (10:11)
[2019-05-05] MEDS: Aspirin E.C. 81 MG Tablet PO (10:12)
[2019-05-05] MEDS: Doxazosin 1 MG Tablet 2 MG PO (10:13)
[2019-05-05] MEDS: Pantoprazole Sodium 40 MG Tablet PO (10:14)
[2019-05-05] MEDS: Carvedilol 6.25 MG Tablet PO (10:14)
[2019-05-05] MEDS: NYSTATIN 500,000 UNIT/5 ML UDC 500000 UNIT PO (10:15)
[2019-05-05] MEDS: Lidocaine 5% Patch 1 PATCH TOPICAL (10:17)
--- NOTE | 2019-05-05 10:20 | PHA.DC.MR ---
Pharmacy Service has performed discharge medication reconciliation for this patient. The patient's discharge medication list was reviewed for discrepancies and discrepancies were resolved. Home Medications Aspirin E.C. [Ecotrin] 81 mg PO DAILY 10/28/14 Calcium Carbonate/Vitamin D3 [Calcium 500 mg Chewable Tablet] 1 tab PO DAILY 10/28/14 Cholecalciferol (VIT D3) [Vitamin D3] 1,000 unit PO DAILY 10/28/14 allopurinol 100 mg tablet 100 mg PO DINNER tab 06/06/17 magnesium oxide 500 mg capsule 1,200 mg PO QHS cap 01/28/18 Benzocaine/Menthol [Cepacol Sore Throat Lozenge] 1 lozenger PO Q2H PRN PRN 04/16/19 Capsaicin 1 applicatio TOPICAL TID 04/16/19 Carvedilol 1 tab PO BID 04/16/19 Diltiazem HCl [Cardizem Cd] 120 mg PO BID 04/16/19 Doxazosin Mesylate 2 mg PO BID 04/16/19 Lidocaine [Salonpas] 1 patch TOPICAL DAILY 04/16/19 Melatonin 3 mg PO QHS 04/16/19 Tylenol 650 mg PO Q6H PRN PRN 04/16/19 Albuterol Aerosols [Ventolin Aerosols] 2.5 mg INHALATION Q2H PRN PRN 04/30/19 Biotene 15 ml MM 5X/DAY 04/30/19 Bisacodyl 10 mg [place] X1 PRN 04/30/19 Haloperidol [Haldol] 2 mg IM Q4H PRN PRN 04/30/19 Lactobacillus Acidophilus [Acidophilus] 1 tab PO TID 04/30/19 Loperamide [Imodium] 2 mg PO Q4H PRN PRN 04/30/19 Mag Hydrox/Al Hydrox/Simeth [Mylanta II] 30 ml PO Q6H PRN PRN 04/30/19 Magnesium Hydroxide [Milk Of Magnesia] 30 ml PO DAILY PRN PRN 04/30/19 Menthol/Lanolin/Calamine/Znox [Calmoseptine Ointment] 1 applic TOPICAL BID 04/30/19 Nystatin 500,000U/5ML [Mycostatin] 5 ml PO 4X/DAY 04/30/19 Pantoprazole Sodium [Protonix] 40 mg PO DAILY 04/30/19 Sennosides/Docusate Sodium [Senokot-S Tablet] 2 tab PO BID 04/30/19 Thyroid,Pork [Nature-Throid] 48.75 mg PO DAILY 04/30/19 Amox/Clav 400mg/5ml Susp [Augmentin Suspension 400mg/5ml] 400 mg PO BIDCM po.syringe 05/05/19 Clonazepam [Klonopin] 0.5 mg PO 2130 tab 05/05/19 Polyethylene Glycol 3350 [Miralax] 17 gm PO DAILY packet 05/05/19
--- NOTE | 2019-05-05 11:19 | PCM.DC.SUM ---
<Tamera Díaz - Last Filed: 05/05/19 11:43> Discharge Date and Diagnosis Date of Admission: 04/30/19 Date of Discharge: 05/05/19 - Primary Discharge Diagnosis 1. Acute on chronic hypoxic respiratory failure, suspect secondary to aspiration pneumonia vs fluid overload 2. Questionable early small bowel obstruction, resolved 3. Oropharyngeal dysphagia 4. Chronic diastolic CHF 5. 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 Hypertension 7. Hypothyroidism 8. CAD with history of CABG 9. Anxiety with chronic benzodiazepine use - Secondary Discharge Diagnosis Chronic Problems (Last Reviewed 04/17/19 @ 10:45 by Francine Chapa DO) Hemorrhagic cerebrovascular accident (CVA) (Chronic) Right thalamus 04/08/2019 Hypertension (Chronic) Hypothyroidism (Chronic) Gout (Chronic) Chronic hypoxemic respiratory failure (Chronic) Chronic diastolic (congestive) heart failure (Chronic) Anxiety (Chronic) On clonazepam Overweight (BMI 25.0-29.9) (Chronic) Spinal stenosis (Chronic) Restrictive lung disease (Chronic) Severe History of polymyalgia rheumatica (Chronic) Atherosclerosis of coronary artery of [place] heart without angina pectoris (Chronic) CABG x 2: DEVRIES-LCx, PJ-D1 10/04/2010 H/O coronary artery bypass surgery (Chronic 10/04/10) CABG x 2: DEVRIES-LCx, PJ-D1 10/04/2010 Inclusion body myositis (Chronic) Hospital Course and Treatment Imaging Results: Diagnostic Data Abdomen X-Ray 04/30/19 14:07 IMPRESSION: Dilated small bowel loops with air-fluid levels. Gas is seen in the distal colon and rectum. Findings are suggestive of either an incomplete small bowel obstruction or early small bowel obstruction. Follow-up is recommended. Electronically Signed: Wilian Roman, at 14:57 EST , Service support , Chest X-Ray 05/01/19 05:55 IMPRESSION: Interval improvement of both lungs. Mild residual changes persist. Electronically Signed: Wilian Roman, at 11:17 EST , Service support , Small Bowel X-Ray 05/01/19 08:00 IMPRESSION: No evidence of a small bowel obstruction. Electronically Signed: Wilian Roman, at 12:46 EST , Service support , Operations: None Procedures: None Summary of Care Provided: The patient is a 78 year old F admitted 04/30/2019 due to shortness of breath. 1. Acute on chronic hypoxic respiratory failure, suspect secondary to aspiration pneumonia as well as fluid overload-chest x-ray showed diffuse infiltrates versus CHF. Patient did receive IV lasix X2. Transitioned from IV Zosyn to oral Augmentin empirically to complete course. Speech therapy consulted. Aspiration precautions. Repeat chest x-ray showed improvement in aeration in both lungs. Oxygen currently stable on chronic O2 requirements. BNP not significant. No lower extremity swelling. Patient underwent barium swallow test -continue dietary modifications per speech therapy recommendations. 2. Questionable early small bowel obstruction, resolved-initial abdominal x-ray on admission showed dilated small bowel loops, suggestive of incomplete small bowel obstruction or early small bowel obstruction. Small bowel follow-through showed no evidence of small bowel obstruction. Continue bowel regimen. Patient has had multiple bowel movements. Abdominal pain resolved. 3. Oropharyngeal dysphagia-speech therapy consult. Continue dietary modifications per speech therapy recommendations. 4. Chronic diastolic CHF- Recent echo at [facility] demonstrated an EF of 55%. 5. 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 SNF at [place] for further rehab. 6. Hypertension-stable, continue carvedilol, Cardizem regimen. 7. Hypothyroidism= continue home medication regimen. 8. CAD with history of CABG-continue aspirin, not on statin. 9. Anxiety with chronic benzodiazepine use-home Klonopin regimen decreased 0.5 mg nightly. General: Alert, Oriented x3, Cooperative HEENT: Atraumatic, PERRLA, EOMI, Normocephalic Neck: Supple, No JVD, Negative Carotid Bruits Lungs: Clear to auscultation, Diminished Cardiovascular: Regular rate, Regular Rhythm, Normal S1, Normal S2, No murmurs Abdomen: Bowel Sounds Present, Soft, Non Tender, Non-Distended Extremities: No clubbing, No cyanosis, No edema, Capillary Refill Less than 3 Seconds Skin: No rashes, No breakdown Musculoskeletal: No Tenderness to Palpation of Joints or Extremities Neurological: Cranial nerves II-XII grossly intact, - - Left upper extremity weakness/drift. Mild left lower extremity weakness. Recent CVA. Psych/Mental Status: Normal Affect, Appropriate Patient seen and examined prior to discharge. Physical assessment as noted above. Patient is stable for discharge with follow up recommendations as noted above. This patient was seen by PIPER Cabrera under the supervision of Dr. Cobian. - Physical Exam Vitals/I&O's: Vital Signs Temp Pulse Resp BP Pulse Ox 97.9 F 69 16 143/53 H 98 05/05/19 09:30 05/05/19 09:30 05/05/19 09:30 05/05/19 09:30 05/05/19 09:30 Oxygen Flow Rate (L/min) 2 Oxygen Delivery Method Nasal Cannula Weight: 151 lb 7.321 oz Body Mass Index (BMI) 28.0 Finger Stick Blood Glucose 111 Intake and Output for Last 24 Hours 05/03/19 05/04/19 05/05/19 23:59 23:59 23:59 Intake Total 800 / 800 315 / 315 0 / 0 Output Total 1450 / 1450 550 / 550 0 / 0 Balance -650 / -650 -235 / -235 0 / 0 Current Medications Acetaminophen (Tylenol) 650 mg PO Q6H PRN PRN PRN Reason: Pain Score 1-10/Temp > 100.7 F Last Admin: 05/03/19 20:42 Dose: 650 mg Documented by: Al Hydroxide/Mg Hydroxide (Mylanta Ii) 30 ml PO Q6H PRN PRN PRN Reason: HEARTBURN OR INDIGESTION Albuterol Sulfate (Ventolin Aerosols) 2.5 mg INHALATION Q2H PRN PRN PRN Reason: wheezing or SOB Albuterol/Ipratropium (Duoneb) 3 ml INHALATION Q6HWA.RT [facility] Last Admin: 05/05/19 07:41 Dose: 3 ml Documented by: Allopurinol (Zyloprim) 100 mg PO DINNER [facility] Last Admin: 05/04/19 17:43 Dose: 100 mg Documented by: Amoxicillin/Clavulanate Potassium (Augmentin Suspension 400mg/5ml) 400 mg PO BIDCM [facility] [place] Stop: 05/07/19 17:01 Last Admin: 05/05/19 08:36 Dose: 400 mg Documented by: Aspirin (Ecotrin) 81 mg PO DAILY [facility] Last Admin: 05/05/19 10:12 Dose: 81 mg Documented by: Carvedilol (Coreg) 6.25 mg PO BID [facility] Last Admin: 05/05/19 10:14 Dose: 6.25 mg Documented by: Clonazepam (Klonopin) 0.5 mg PO 2129 [facility] Last Admin: 05/04/19 21:44 Dose: 0.5 mg Documented by: Diltiazem HCl (Cardizem Cd) 120 mg PO BID [facility] Last Admin: 05/05/19 10:11 Dose: 120 mg Documented by: Doxazosin Mesylate (Cardura) 2 mg PO BID [facility] Last Admin: 05/05/19 10:13 Dose: 2 mg Documented by: Enoxaparin Sodium (Lovenox) 40 mg SC DAILY [facility] Last Admin: 05/05/19 10:09 Dose: 40 mg Documented by: Glucagon () 1 mg IM .X1 PRN PRN Reason: Hypoglycemia Haloperidol (Haldol) 2 mg PO Q4H PRN PRN PRN Reason: AGITATION Sodium Chloride () 250 mls @ 15 mls/hr IV .[id number] PRN PRN Reason: Saline Flush Sodium Chloride () 250 mls @ 15 mls/hr IV .[id number] PRN PRN Reason: Additional IVPB Infusion Dextrose (Dextrose 10%-Water) 250 mls @ 999 mls/hr IV .Q16M PRN; Protocol PRN Reason: HYPOGLYCEMIA Lidocaine (Lidoderm Patch) 1 patch TOPICAL DAILY [facility] [place] Last Admin: 05/05/19 10:17 Dose: 1 patch Documented by: Loperamide HCl (Imodium) 2 mg PO Q4H PRN PRN PRN Reason: Diarrhea Magnesium Hydroxide (Milk Of Magnesia) 30 ml PO DAILY PRN PRN PRN Reason: Constipation Melatonin (Melatonin) 3 mg PO QHS [facility] [place] Last Admin: 05/04/19 21:37 Dose: 3 mg Documented by: Nystatin (Nystatin) 500,000 unit PO 4X/DAY [facility] Last Admin: 05/05/19 10:15 Dose: 500,000 unit Documented by: Ondansetron HCl (Zofran) 4 mg IV Q8H PRN PRN PRN Reason: NAUSEA/VOMITING Last Admin: 04/30/19 13:58 Dose: 4 mg Documented by: Pantoprazole Sodium (Protonix) 40 mg PO DAILY [facility] [place] Last Admin: 05/05/19 10:14 Dose: 40 mg Documented by: Polyethylene Glycol (Miralax) 17 gm PO DAILY [facility] Last Admin: 05/05/19 10:14 Dose: Not Given Documented by: Quetiapine Fumarate (Seroquel) 50 mg PO QHS [facility] [place] Last Admin: 05/04/19 21:37 Dose: 50 mg Documented by: Senna/Docusate Sodium (Senokot-S, Yuliya-Colace) 2 tablet PO BID [facility] [place] Last Admin: 05/05/19 10:14 Dose: Not Given Documented by: Sodium Chloride () 10 - 40 ml IV UD PRN PRN Reason: SALINE FLUSH Last Admin: 05/02/19 13:45 Dose: 10 ml Documented by: Thyroid (Friendship Thyroid) 45 mg PO DAILY [facility] [place] Last Admin: 05/05/19 10:10 Dose: 45 mg Documented by: Home Medications: Medications to take at Discharge Aspirin E.C. [Ecotrin] 81 mg PO DAILY 10/28/14 Calcium Carbonate/Vitamin D3 [Calcium 500 mg Chewable Tablet] 1 tab PO DAILY 10/28/14 Cholecalciferol (VIT D3) [Vitamin D3] 1,000 unit PO DAILY 10/28/14 allopurinol 100 mg tablet 100 mg PO DINNER tab 06/06/17 magnesium oxide 500 mg capsule 1,200 mg PO QHS cap 01/28/18 Benzocaine/Menthol [Cepacol Sore Throat Lozenge] 1 lozenger PO Q2H PRN PRN 04/16/19 Capsaicin 1 applicatio TOPICAL TID 04/16/19 Carvedilol 1 tab PO BID 04/16/19 Diltiazem HCl [Cardizem Cd] 120 mg PO BID 04/16/19 Doxazosin Mesylate 2 mg PO BID 04/16/19 Lidocaine [Salonpas] 1 patch TOPICAL DAILY 04/16/19 Melatonin 3 mg PO QHS 04/16/19 Tylenol 650 mg PO Q6H PRN PRN 04/16/19 Albuterol Aerosols [Ventolin Aerosols] 2.5 mg INHALATION Q2H PRN PRN 04/30/19 Biotene 15 ml MM 5X/DAY 04/30/19 Bisacodyl 10 mg [place] X1 PRN 04/30/19 Haloperidol [Haldol] 2 mg IM Q4H PRN PRN 04/30/19 Lactobacillus Acidophilus [Acidophilus] 1 tab PO TID 04/30/19 Loperamide [Imodium] 2 mg PO Q4H PRN PRN 04/30/19 Mag Hydrox/Al Hydrox/Simeth [Mylanta II] 30 ml PO Q6H PRN PRN 04/30/19 Magnesium Hydroxide [Milk Of Magnesia] 30 ml PO DAILY PRN PRN 04/30/19 Menthol/Lanolin/Calamine/Znox [Calmoseptine Ointment] 1 applic TOPICAL BID 04/30/19 Nystatin 500,000U/5ML [Mycostatin] 5 ml PO 4X/DAY 04/30/19 Pantoprazole Sodium [Protonix] 40 mg PO DAILY 04/30/19 Sennosides/Docusate Sodium [Senokot-S Tablet] 2 tab PO BID 04/30/19 Thyroid,Pork [Nature-Throid] 48.75 mg PO DAILY 04/30/19 Amox/Clav 400mg/5ml Susp [Augmentin Suspension 400mg/5ml] 400 mg PO BIDCM po.syringe 05/05/19 Clonazepam [Klonopin] 0.5 mg PO 2130 tab 05/05/19 Polyethylene Glycol 3350 [Miralax] 17 gm PO DAILY packet 05/05/19 Primary Care Physician: Tamera Zepeda NP-C [Primary Care Provider] - Please follow up with your Primary Care Physician in: 1 Week Disposition: Intermediate facility Minutes spent on discharge:: 35 Patient Condition:: Stable Medical Necessity - Tobacco Use Smoking Status: Never smoker Meaningful Use Info Meaningful Use Diagnoses (Choose all that apply): None applicable <John Cobian - Last Filed: 05/05/19 16:43> Discharge Date and Diagnosis - Secondary Discharge Diagnosis Chronic Problems (Last Reviewed 04/17/19 @ 10:45 by Francine Chapa DO) Hemorrhagic cerebrovascular accident (CVA) (Chronic) Right thalamus 04/08/2019 Hypertension (Chronic) Hypothyroidism (Chronic) Gout (Chronic) Chronic hypoxemic respiratory failure (Chronic) Chronic diastolic (congestive) heart failure (Chronic) Anxiety (Chronic) On clonazepam Overweight (BMI 25.0-29.9) (Chronic) Spinal stenosis (Chronic) Restrictive lung disease (Chronic) Severe History of polymyalgia rheumatica (Chronic) Atherosclerosis of coronary artery of [place] heart without angina pectoris (Chronic) CABG x 2: DEVRIES-LCx, PJ-D1 10/04/2010 H/O coronary artery bypass surgery (Chronic 10/04/10) CABG x 2: DEVRIES-LCx, PJ-D1 10/04/2010 Inclusion body myositis (Chronic) Hospital Course and Treatment Summary of Care Provided: This patient was seen in conjunction with MANAGER BUSINESS [employer]ANNING, Tamera. I have independently interviewed and examined the patient and reviewed pertinent history, examination findings, laboratory and plan of management. I have reviewed the note and agree with the documented findings with the few additional points. In brief, patient is admitted for acute shortness of breath for about 1 day. Chest x-ray independently reviewed and shows bilateral hilar and infrahilar alveolar congestion with bilateral peripheral and lower lobes reticular changes suggestive of chronic interstitial disease. BNP is slightly elevated but not high. Lasix was given. There is suspicion of possible aspiration pneumonia therefore on aspiration precaution along with IV Zosyn. Repeat chest x-ray shows improvement in central congestion. Bilateral residual reticular changes persist. Patient discharged on Augmentin to complete a total of 7 days. Abdominal x-ray shows dilated small bowel loops with air-fluid level in gases and distal colon rectum. Small bowel barium follow-through was done and shows contrast in the right colon in 90 minutes therefore no evidence of small bowel obstruction. Patient has fecal residue and had good bowel movement on stool softeners. Patient had modified barium swallow today shows moderate oropharyngeal dysphagia with silent aspiration of thin liquids secondary to recent hemorrhagic CVA involving right thalamus. On mechanical soft diet and honey thickened liquids as per speech therapist recommendation. Feeding on supervision at upright seated 90 position. Possible acute on chronic diastolic heart failure: Recent echo in [facility] shows EF 55%. Pulmonary congestion is cleared. Continue bronchodilator treatment as needed for interstitial lung disease Other chronic comorbidities include recent right thalamus hemorrhagic CVA, inclusion body myositis, hypertension, hypothyroidism, coronary artery disease history of CABG, anxiety and mild insomnia: Home medications reconciliation done. CODE STATUS: DNR CC arrest. [] Discharge medication reconciliation done. Discharge follow-up instructions completed. Discharge process discussed with the patient and all questions were answered to patient's satisfaction. Patient is being discharged to TCU. Total time spent, exact 35 minutes on discharge meds reconciliation, examination, coordination of care with nurses and ancillary staff, review of imaging and blood test and discussion with the patient on follow-up instructions Subjective: Seen and examined. Hemodynamically stable. No fever or chills. Moving bowels regularly. Objective: General: Alert, Oriented x3, Cooperative HEENT: Atraumatic, PERRLA, EOMI, Normocephalic Oral: No Gingival or Mucosal Lesions/ Ulcerations Neck: Supple, No JVD, Negative Carotid Bruits Lungs: Air entry diminished in bilateral lung bases. Chronic coarse rales present in bilateral lung bases. Cardiovascular: Regular rate, Regular Rhythm, Normal S1, Normal S2, No murmurs Abdomen: Bowel Sounds Present, Soft, Non Tender, Non-Distended Extremities: No edema, Capillary Refill Less than 3 Seconds Skin: No rashes, No breakdown Musculoskeletal: No Tenderness to Palpation of Joints or Extremities, Arthritic Changes, Muscle Wasting Neurological: Deep Tendon Reflexes 2+/4 and Symmetrical, - - Left-sided weakness. Oropharyngeal dysphagia. Psych/Mental Status: Normal Affect, Appropriate - Physical Exam Vitals/I&O's: Vital Signs Temp Pulse Resp BP Pulse Ox 97.9 F 69 16 143/53 H 98 05/05/19 09:30 05/05/19 09:30 05/05/19 09:30 05/05/19 09:30 05/05/19 09:30 Oxygen Flow Rate (L/min) 2 Oxygen Delivery Method Nasal Cannula Weight: 151 lb 7.321 oz Body Mass Index (BMI) 28.0 Finger Stick Blood Glucose 111 Intake and Output for Last 24 Hours 05/03/19 05/04/19 05/05/19 23:59 23:59 23:59 Intake Total 800 / 800 315 / 315 0 / 0 Output Total 1450 / 1450 550 / 550 0 / 0 Balance -650 / -650 -235 / -235 0 / 0 Code Visit Inpatient E&M: [id number] Disch Hosp
--- NOTE | 2019-05-05 11:30 | NURSING ---
report given to Arely at [facility]
== END 2019-05-05 11:50 | disposition skilled nursing facility (03) | DRG 177 ==
PROVIDERS: Nurse Practitioner Family; Admitting Provider Internal Medicine; PCP Nurse Practitioner Primary Care; Referring Provider Internal Medicine; Visit Provider Internal Medicine
DX: J69.0 Pneumonitis due to inhalation of food and vomit (principal); J96.21 Acute and chronic respiratory failure with hypoxia; I50.33 Acute on chronic diastolic (congestive) heart failure; K56.600 Partial intestinal obstruction, unspecified as to cause; G72.41 Inclusion body myositis [IBM]; E03.9 Hypothyroidism, unspecified; I25.10 Atherosclerotic heart disease of native coronary artery without angina pectoris; Z66 Do not resuscitate; I69.234 Monoplegia of upper limb following other nontraumatic intracranial hemorrhage affecting left non-dominant side; I69.291 Dysphagia following other nontraumatic intracranial hemorrhage; Z99.81 Dependence on supplemental oxygen; R53.81 Other malaise; I11.0 Hypertensive heart disease with heart failure; F41.9 Anxiety disorder, unspecified; R13.12 Dysphagia, oropharyngeal phase; M10.9 Gout, unspecified; E66.3 Overweight; M48.00 Spinal stenosis, site unspecified; Z68.28 Body mass index [BMI] 28.0-28.9, adult; Z79.899 Other long term (current) drug therapy; Z95.1 Presence of aortocoronary bypass graft
CPT/HCPCS: 36415; 71046; 74019; 74250; 76000; 80048; 85025; 85027; 92507; 92526; 92610; 92611; 93005; 94640; 97110; 97163; 97166; 97530; 97535; 97802; 97803; 99251; J7030; A4216; G0463; J2405

== ENCOUNTER 2020-08-18 23:31 | Inpatient (IN) | payer MEDICARE, SELFPAY ==
[2019-04-30 15:57] VITALS: BMI 28.0
[2020-08-18 23:01] VITALS: BMI 20.4
[2020-08-18 23:17] VITALS: BP 147/70; PULSE 105; RESP 18; TEMP 36.4; O2SAT 100
--- NOTE | 2020-08-18 23:21 | HP.PCM.HOS_ITS ---
HPI - General General Date of Admission: 08/18/20 Date of Service: 08/18/20 Chief Complaint: Bilateral healthcare acquired pneumonia, non-STEMI, chronic diastolic congestive heart failure HPI Nesha NICHOLS, is a 80 F who was directly admitted to PCU after being transferred from [facility] emergency room where she was taken for evaluation of generalized weakness. There is an extensive work-up done at this emergency room including a CBC which showed an elevated white blood cell count at 22,000, labs included a chemistry profile which was remarkable for a calcium level at 8.3, albumin was low at 2.6. Patient had a D-dimer performed which was elevated at 752, her troponin was elevated at 745-patient's second troponin was also elevated at 2452 -patient had urinalysis which showed +3 bacteria, 26-50 WBCs and 38-35 RBCs. Patient required supplemental oxygen to maintain her pulse ox above 90%, and arterial blood gas was performed on 3 L nasal cannula: pH 7.33, PCO2 49, PO2 76. Patient had a chest x-ray performed which showed a right lower lobe probable infiltrate and suspected bilateral perihilar infiltrates. Patient underwent a CT of the chest which showed no evidence of pulmonary embolism, there were multiple areas of consolidation felt to be secondary to pneumonia, there was also interstitial edema which was concerning for CHF. Patient's Covid 19 test was negative. EKG showed a sinus tachycardia with occasional PVCs, no evidence of acute ischemic changes were noted. Patient was given IV antibiotics, family requested transfer to [facility] for further care, cardiology was initially contacted at [facility], it was initially recommended patient be placed on a heparin drip-this heparin drip was continued as the patient was transferred here. Patient was directly admitted to PCU for hospital-acquired pneumonia, sepsis secondary to hospital-acquired pneumonia, diastolic congestive heart failure, hypoxia, and acute non-STEMI. [facility] Medical History (Updated 08/19/20 @ 00:[address] Jeb Pedro, ) Anemia Asthma Atherosclerosis of coronary artery of [place] heart without angina pectoris CAD (coronary artery disease) CHF (congestive heart failure) Chronic respiratory failure with hypoxia Constipation COVID-19 Depression Dextrocardia Dysphagia, oropharyngeal phase GERD (gastroesophageal reflux disease) Gout HTN (hypertension) Hypocalcemia Hypothyroid Hypoxemia Inclusion body myositis Obesity Osteoarthritis Osteoporosis Other abnormal heart sounds Polymyalgia rheumatica Shortness of breath Spinal stenosis Spinal stenosis Stroke/cerebrovascular accident Vitamin D deficiency Home Medications aspirin 81 mg PO DAILY 10/28/14 [History Last Taken 04/30/19 08:21] calcium carbonate-vitamin D3 1 tab PO DAILY 10/28/14 [History Last Taken 04/30/19 08:21] Capsaicin 1 applicatio TOPICAL TID 04/16/19 [History Last Taken 04/30/19 08:22] Tylenol 650 mg PO Q6H PRN PRN 04/16/19 [History Last Taken 04/30/19 04:33] benzocaine-menthol 1 lozenger PO Q2H PRN PRN 04/16/19 [History Last Taken Unknown] carvedilol 1 tab PO BID 04/16/19 [History Last Taken 04/30/19 08:21] diltiazem HCl 120 mg PO BID 04/16/19 [History Last Taken 08/17/20 21:00] Biotene 15 ml MM 5X/DAY PRN 04/30/19 [History Last Taken 04/27/19 07:57] acidophilus-pectin, citrus 1 tab PO TID 04/30/19 [History Last Taken Unknown] bisacodyl 10 mg VA X1 PRN 04/30/19 [History Last Taken Unknown] loperamide 2 mg PO Q4H PRN PRN 04/30/19 [History Last Taken 04/28/19 13:23] magnesium hydroxide 30 ml PO DAILY PRN PRN 04/30/19 [History Last Taken Unknown] ibuprofen 200 mg PO/SL Q12H PRN PRN 08/18/20 [History Last Taken Unknown] polyethylene glycol 3350 17 gm PO PRN PRN 08/18/20 [History Last Taken Unknown] ESSENTIAL AMINO ACID MIX 1 dose PO/SL DAILY 08/19/20 [History Last Taken 08/18/20 08:00] Restful Sleep 1 tablet PO/SL QHS 08/19/20 [History Last Taken 08/17/20 21:00] allopurinol 100 mg PO DINNER 08/19/20 [History Last Taken 08/17/20 16:00] camphor-methyl salicyl-menthol [Salonpas] 1 patch TOPICAL DAILY 08/19/20 [History Last Taken 08/18/20 08:00] ferrous sulfate 325 mg PO BID 08/19/20 [History Last Taken 08/18/20 08:00] menthol-zinc oxide [Calmoseptine] 1 applic TOPICAL DAILY PRN 08/19/20 [History Last Taken Unknown] potassium chloride 20 meq PO BID 08/19/20 [History Last Taken 08/18/20 08:00] sertraline [Zoloft] 50 mg PO DAILY 08/19/20 [History Last Taken 08/18/20 08:00] thyroid (pork) 60 mg PO DAILY 08/19/20 [History Last Taken 08/18/20 08:00] Allergy/AdvReac Type Severity Reaction Status Date / Time hydrochlorothiazide Allergy Swelling Verified 08/18/20 23:36 lisinopril Allergy Swelling Verified 08/18/20 23:36 codeine AdvReac Severe Unknown Verified 08/18/20 23:36 prednisone AdvReac Severe Unknown Verified 08/18/20 23:36 paroxetine [From Paxil] AdvReac Intermediate Agitation Verified 08/18/20 23:36 amiodarone AdvReac Other Verified 08/18/20 23:36 Corticosteroids AdvReac Other Verified 08/18/20 23:36 (Glucocorticoids) diphenhydramine HCl AdvReac Other Verified 08/18/20 23:36 [From Benadryl] morphine AdvReac Other Verified 08/18/20 23:36 amlodopine AdvReac Severe Flushing, Uncoded 08/18/20 23:36 nervousness Many foods AdvReac Severe Hives Uncoded 01/06/19 12:31 Family History (Reviewed 04/30/19 @ 13:47 by Tamera Díaz TRAINING SYSTEMS OFFICER, TRAINING SYSTEMS OFFICER-C) Father CAD (coronary artery disease) Brother Cancer Brother Diabetes Surgical History H/O arthroscopic knee surgery H/O coronary artery bypass surgery (10/04/10) History of back surgery History of hysterectomy History of shoulder surgery Hx of CABG Social History (Updated 01/06/19 @ 13:[address] Abilio Tian MD) Smoking Status: Never smoker alcohol intake: never substance use type: does not use caffeine: No what type of physical activity do you participate in: none seatbelt use: always do you feel safe at home: Yes ROS ROS Narrative Complete review of systems was unable to be obtained due to patient's medical condition, information was obtained from the patient's daughter who is her power of district attorney Vital Signs Vital Signs Vital Signs: 08/18/20 23:17 Temperature 97.5 F L Temperature Source Oral Pulse Rate 105 H Respiratory Rate 18 Blood Pressure 147/70 H Blood Pressure Mean 95 Blood Pressure Source Monitor Blood Pressure Position Semi-Fowlers Blood Pressure Location Left Arm Pulse Ox 100 Oxygen Delivery Method Nasal Cannula Oxygen Flow Rate (L/min) 4 Weight Weight: 53.9 kg Body Mass Index (BMI) 20.4 Physical Exam Const alert and no apparent distress Constitutional Narrative: Patient appears frail and older than her stated age General Appearance: cooperative, well kempt and well developed Orientation / Consciousness: awake, oriented to person, oriented to place and oriented to time HEENT normocephalic, head/scalp atraumatic, hearing grossly normal bilaterally and moist oral mucous membranes Eyes PERRL, EOMs intact bilaterally and conjunctivae normal Neck nuchal rigidity, supple, no JVD, thyroid normal and no carotid bruits General: trachea midline Resp normal respiratory effort, no retractions, no use of accessory muscles and clear to auscultation bilaterally Auscultation: Negative for rales, rhonchi or wheezes Cardio regular rate, regular rhythm, S1 normal heart sound, S2 normal heart sound, no murmurs, no rub, no gallops, no clicks and no JVD GI normal to inspection, nondistended, normoactive bowel sounds, soft to palpation, non-tender and non-distended Extremity no clubbing, cyanosis or edema Skin no rashes or lesions noted, no wounds and skin turgor normal General Skin Exam: no breakdown Neuro CN's II-XII intact bilaterally, moves all extremities, no focal motor deficits and no sensory deficits noted Sensorium / Orientation: awake, alert, oriented to person and oriented to place Speech: speech normal Psych thought process normal and affect normal Assessment & Plan Assessment/Plan (1) Bilateral pneumonia: PLAN: 1. Bilateral pneumonia-healthcare acquired-patient was admitted to PCU, she was placed on Zosyn, patient will be monitored on telemetry #2 [id number] will see the patient in consultation, I have removed her heparin drip after discussing the case with cardiology by phone, patient will remain on her beta-wanda and aspirin, I feel this is a poor candidate for intervention due to her multiple medical problems. 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 Patient is a DNR CC arrest without intubation according to her daughter who is her POA. Charges/Coding Visit Charges Inpatient E&M: 09202 Init Hosp L3
[2020-08-18 23:26] VITALS: PULSE 106
--- NOTE | 2020-08-18 23:38 | EKG12_ITS ---
Test Reason : NON-STEMI ADMIT Blood Pressure : / mmHG Vent. Rate : 102 BPM Atrial Rate : 102 BPM P-R Int : 162 ms QRS Dur : 108 ms QT Int : 380 ms P-R-T Axes : 046 -54 096 degrees QTc Int : 495 ms Sinus tachycardia Left anterior fascicular block Left ventricular hypertrophy Nonspecific ST and T wave abnormality Abnormal ECG Confirmed by HANNAH GARCES, TY ([id number]), senior technical editor BRAD MONSALVE ([id number]) on 08/23/2020 10:31:36 AM Referred By: DR HOLLEY Confirmed By:TY YOUNG MD
[2020-08-19] VITALS (10 sets, daily range): BP systolic 119–152; BP diastolic 45–72; PULSE 76–99; RESP 16–18; TEMP 36.3–36.8; O2SAT 95–100; BMI 20.3
--- NOTE | 2020-08-19 00:33 | ECHOCS_ITS ---
Reason For Study: S/P [place] Procedure This was a 2D Doppler, Color Flow transthoracic echocardiogram. The study was technically difficult. Contrast injection was performed. Patient has Dextrocardia. Exam performed portable in patient room. Left Ventricle Normal LV size. The estimated ejection fraction is 55 %. Unable to assess diastolic dysfunction. No regional wall motion abnormalities noted. Right Ventricle Normal RV size. Normal systolic function. Atria Normal left atrium. Normal right atrium. No doppler evidence for ASD. Mitral Valve There is moderate to severe mitral annular calcification. There is no mitral valve stenosis. No mitral valve insufficiency. Tricuspid Valve There is no tricuspid stenosis. Mild tricuspid valve insufficiency. Pulmonary artery systolic pressure is 60-65 mmHg. Aortic Valve There is no aortic stenosis. No aortic valve insufficiency. Pulmonic Valve There is no pulmonic valvular stenosis. Mild (1+) pulmonic valve insufficiency. Great Vessels Normal aortic root. Pericardium/Pleural No pericardial effusion. Medication Diluted definity 3ml given slow IV push to enhance endocardial definition. MMode/2D Measurements & Calculations LVIDd: 3.0 cm IVSd: 1.3 cm LA dimension: 3.4 cm LVIDs: 2.0 cm LVPWd: 1.2 cm FS: 33.7 % LAV(MOD-sp4): 38.2 ml LA A4 area: 15.4 cm2 Time Measurements MV dec time: 0.38 sec Doppler Measurements & Calculations MV E max colin: 36.7 cm/sec Lat Peak E' Colin: 3.9 cm/sec Med Peak E' Colin: 3.0 cm/sec MV A max colin: 104.1 cm/sec E/E' lat: 9.5 E/E' med: 12.4 MV E/A: 0.35 MV V2 max: 107.9 cm/sec MV P1/2t max colin: 51.0 cm/sec Ao V2 max: 96.0 cm/sec MV max P.7 mmHg MV P1/2t: 128.9 msec Ao max P.7 mmHg MV V2 mean: 49.2 cm/sec MV dec slope: 115.9 cm/sec2 MV mean P.2 mmHg MV V2 VTI: 22.0 cm MVA(P1/2t): 1.7 cm2 LV V1 max: 73.9 cm/sec PA V2 max: 49.6 cm/sec TR max colin: 367.9 cm/sec LV V1 max P.2 mmHg TR max P.1 mmHg ECHO/Echo Complete W/ Contrast Interpretation Summary The estimated ejection fraction is 55 %. Mild tricuspid valve insufficiency. Pulmonary artery systolic pressure is 60-65 mmHg. Unable to assess diastolic dysfunction. Ordering Physician: Jeb Pedro Referring Physician: Tamera Zepeda Performed By: Osmany Lua RCS
[2020-08-19] MEDS: 0.9% Saline Lock 10 ML Syringe IV ×4 (01:00→22:41)
[2020-08-19] MEDS: Furosemide 20 MG/2 ML VIAL IV ×4 (01:00→22:22)
--- NOTE | 2020-08-19 02:57 | NURSING ---
liana miller charting reveiwed
[2020-08-19 05:50] LABS: Absolute Lymphocyte Count 1.13 X10^3/uL (0.83-4.51); Absolute Neutrophil Count 20.4 X10^3/uL (2.0-7.7); Basophil# 0.03 X10^3/uL; Basophil% 0.1 % (0-1); Hematocrit 32.3 % (37-47); Hemoglobin 9.7 g/dL (12.0-15.0); Lymphocyte # 1.13 X10^3/ul (0.83-4.51); Mean Corpuscular Hgb 30.5 pg (27.0-32.0); Mean Corpuscular Volume 101.6 fL (81-99); Mean Platelet Vol. 11.2 fl (6.2-12.0); Monocyte# 0.98 X10^3/uL; Monocyte% 4.3 % (0-10); NRBC Flagged by Analyzer 0 % (0-5); Neutrophil # 20.42 X10^3/uL (2.7-7.7); Neutrophil % 90.2 % (47-70); POSITIVE DIFFERENTIAL YES; Platelet Count 295 K/mm3 (150-450); RBC Distribution Width CV 16.1 % (11.6-14.6); RBC Distribution Width SD 59.9 fl (35.1-43.9); Red Blood Count 3.18 M/mm3 (4.2-5.4); White Blood Count 22.7 K/mm3 (4.4-11.0)
[2020-08-19 06:29] LABS: Differential Indicated SCAN CRITERIA MET
[2020-08-19 06:36] LABS: Anion Gap 6 (5-15); BUN 15 mg/dL (7-18); BUN/Creat Ratio 25.7 RATIO (10-20); Calcium,Total 8.5 mg/dL (8.5-10.1); Chloride 106 mmol/L (98-107); Creatinine, Serum 0.58 mg/dL (0.55-1.02); EST Glomerular Filtration Rate 105 mL/min (>60); Est Glom Filt Rate - Afr Amer 127 mL/min (>60); Estimated Creatinine Clearance 36.77 ml/min; Glucose 92 mg/dL (74-106); Potassium 3.9 mmol/L (3.5-5.1); Sodium Level 140 mmol/L (136-145)
[2020-08-19] MEDS: dilTIAZem CD 120 MG Capsule PO ×2 (08:23→22:23)
[2020-08-19] MEDS: Sertraline 50 MG Tablet PO (08:23)
[2020-08-19] MEDS: Carvedilol 6.25 MG Tablet PO ×2 (08:23→22:23)
[2020-08-19] MEDS: Aspirin E.C. 81 MG Tablet PO (08:23)
[2020-08-19] MEDS: Enoxaparin 40 MG/0.4 ML Syringe SC (08:25)
--- NOTE | 2020-08-19 11:07 | CASEMGMT ---
SONNY called [facility] and spoke with Sheila. She said patient is a snf resident. She said patient will need a pre-cert if she comes back skilled. SONNY let her know she could possibly come back over the weekend. Stephie DUNCAN
--- NOTE | 2020-08-19 12:15 | PN.HOSP_ITS ---
Subjective Subjective Patient seen and examined. She was admitted as a transfer from [facility] after she was taken there for evaluation of generalized weakness. Urinalysis showed 3+ bacteria and elevated wbcs. CXR showed right lower lobe infiltrate, and suspected bilateral perihilar infiltrates. Chest CT showed no evidence of PE and also interstitial edema concerning for CHF. Troponin was elevated. She is being managed for sepsis due to hospital acquired pneumonia, diastolic congestive heart failure, hypoxia and nonstemi. Patient complained of feeling weak and tired. She also complained of feeling cold. Review of systems is otherwise negative. She is on 4L of oxygen. Objective Data Objective Data Vital Signs: Vital Signs Temp Pulse Resp BP Pulse Ox 97.6 F L 96 18 143/67 H 99 08/19/20 08:00 08/19/20 08:00 08/19/20 08:00 08/19/20 08:00 08/19/20 09:56 Oxygen Flow Rate (L/min) 4 Oxygen Delivery Method Nasal Cannula Weight: 118 lb 6.212 oz Body Mass Index (BMI) 20.4 Intake & Output: Intake and Output for Last 24 Hours 08/17/20 08/18/20 08/19/20 23:59 23:59 23:59 Intake Total 50.5 / 50.5 Output Total 250 / 250 Balance -199.5 / -199.5 Lab / Micro Data Result Diagrams: 08/19/20 05:29 08/19/20 05:29 Labs: Laboratory Results - last 24 hr 08/19/20 08/19/20 05:29 05:29 WBC 22.7 H RBC 3.18 L Hgb 9.7 L Hct 32.3 L MCV 101.6 H MCH 30.5 MCHC 30.0 L RDW Std Deviation 59.9 H RDW Coeff of Darrell 16.1 H Plt Count 295 MPV 11.2 Immature Gran % (Auto) 0.400 Neut % (Auto) 90.2 H Lymph % (Auto) 5.0 L Marshall % (Auto) 4.3 Eos % (Auto) 0.0 Baso % (Auto) 0.1 Absolute Neuts (auto) 20.4 H Absolute Lymphs (auto) 1.13 Nucleated RBC % 0 Sodium 140 Potassium 3.9 Chloride 106 Carbon Dioxide 28.0 Anion Gap 6 BUN 15 Creatinine 0.58 Estim Creat Clear Calc 36.77 Est GFR (MDRD) Af Amer 127 Est GFR (MDRD) Non-Af 105 BUN/Creatinine Ratio 25.7 H Glucose 92 Calcium 8.5 Physical Exam Const alert and oriented x3 Orientation / Consciousness: lethargic Exam Limitations: no limitations HEENT head/scalp atraumatic Head and Scalp: normocephalic Mouth: dry mucous membranes Eyes PERRL, EOMs intact bilaterally and conjunctivae normal Neck no lymphadenopathy and supple Resp Resp Narrative: diminished breath sounds bibasally, no wheezes or crackles. on 4L of oxygen. Cardio regular rate, regular rhythm, S1 normal heart sound, S2 normal heart sound and no gallops GI normal to inspection, nondistended, normoactive bowel sounds, soft to palpation, non-tender and non-distended Extremity normal to inspection, full ROM and no clubbing, cyanosis or edema Peripheral Pulses: Yes pulses 2+ throughout Skin no rashes or lesions noted Neuro oriented x3 Sensorium / Orientation: awake and alert Psych affect normal Assessment & Plan Assessment/Plan (1) Bilateral pneumonia: (2) Non-ST elevation myocardial infarction (NSTEMI), initial care episode: PLAN: # Sepsis due to Health associated pneumonia * wbc is up at 22.7 * on IV zosyn * blood cultures pending * #Nonstemi * cardiology on board; await rec;s. Heparin drip discontinued * 2D echo as below. * #Acute on chronic HFpEF: * being diuresed with IV lasix. * 2D echo showed EF of 55%, with no regional wall motion abnormalities noted, moderate to severe mitral annular calcification, with no mitral valve stenosis or insufficiency.n pulmonary artery systolic pressure is 60-65% #UTI; urine cultures pending. on IV zosyn #Debility due to general medical condition #History of inclusion body myositis: stable #Benign essential hypertension; #CVA: had a hemorrhagic stroke in March 2019. Stable #hypothyroidism: takes a compounded form of thyroid replacement. daughter to bring in meds. Code status; DNRCCA no intubation. Charges/Coding Visit Charges Inpatient E&M: 01373 [facility] Hosp L3
--- NOTE | 2020-08-19 15:11 | PCM.CONS.C ---
Assessment & Plan Assessment/Plan (1) Non-ST elevation myocardial infarction (NSTEMI), initial care episode: PLAN: Patient's elevated troponin is likely related to her pneumonia. She does not need any invasive cardiac work-up at this time. If her clinical situation changes then we can consider that. At this time from a cardiac standpoint please continue current medications. She can follow-up with Dr. Tian as an outpatient. We will sign off at this time. If we can be of any further assistance please let us know. HPI Consult Data Date of Consult: 08/19/20 HPI Narrative Reason for Consultation: Elevated troponin HPI Narrative: ALIYA NICHOLS, is a 80 F who presented to [facility] with shortness of breath. Her high-sensitivity troponin was in the 700s, white count was 22,000 and a chest x-ray was suggestive of bilateral pneumonia. Because of elevated troponin patient was transferred to [facility]. Patient was started on antibiotics and admitted to the PCU. Her shortness of breath has improved significantly. 2D echo was done which revealed preserved EF. Patient denies any chest pain. Review of systems: All systems reviewed. All else is negative except that in the HPI. [facility] Medical History (Updated 08/19/20 @ 12:[address] Charley Riojas MD) Anemia Asthma Atherosclerosis of coronary artery of [place] heart without angina pectoris CAD (coronary artery disease) CHF (congestive heart failure) Chronic respiratory failure with hypoxia Constipation COVID-19 Depression Dextrocardia Dysphagia, oropharyngeal phase GERD (gastroesophageal reflux disease) Gout HTN (hypertension) Hypocalcemia Hypothyroid Hypoxemia Inclusion body myositis Obesity Osteoarthritis Osteoporosis Other abnormal heart sounds Polymyalgia rheumatica Shortness of breath Spinal stenosis Spinal stenosis Stroke/cerebrovascular accident Vitamin D deficiency Home Medications aspirin 81 mg PO DAILY 10/28/14 [History Last Taken 08/18/20 08:00] calcium carbonate-vitamin D3 1 tab PO DAILY 10/28/14 [History Last Taken 08/18/20 08:00] Capsaicin 1 applicatio TOPICAL TID 04/16/19 [History Last Taken 04/30/19 08:22] Tylenol 650 mg PO Q6H PRN PRN 04/16/19 [History Last Taken 04/30/19 04:33] benzocaine-menthol 1 lozenger PO Q2H PRN PRN 04/16/19 [History Last Taken Unknown] carvedilol 1 tab PO BID 04/16/19 [History Last Taken 08/18/20 08:00] diltiazem HCl 120 mg PO BID 04/16/19 [History Last Taken 08/18/20 08:00] Biotene 15 ml MM 5X/DAY PRN 04/30/19 [History Last Taken 04/27/19 07:57] acidophilus-pectin, citrus 1 tab PO TID 04/30/19 [History Last Taken 08/18/20 08:00] bisacodyl 10 mg ID X1 PRN 04/30/19 [History Last Taken Unknown] loperamide 2 mg PO Q4H PRN PRN 04/30/19 [History Last Taken 04/28/19 13:23] magnesium hydroxide 30 ml PO DAILY PRN PRN 04/30/19 [History Last Taken Unknown] ibuprofen 200 mg PO/SL Q12H PRN PRN 08/18/20 [History Last Taken Unknown] polyethylene glycol 3350 17 gm PO PRN PRN 08/18/20 [History Last Taken Unknown] ESSENTIAL AMINO ACID MIX 1 dose PO/SL DAILY 08/19/20 [History Last Taken 08/18/20 08:00] Restful Sleep 1 tablet PO/SL QHS 08/19/20 [History Last Taken 08/17/20 21:00] allopurinol 100 mg PO DINNER 08/19/20 [History Last Taken 08/17/20 16:00] camphor-methyl salicyl-menthol [Salonpas] 1 patch TOPICAL DAILY 08/19/20 [History Last Taken 08/18/20 08:00] clonazepam [Klonopin] 2 mg PO QHS 08/19/20 [History Last Taken 08/17/20] ferrous sulfate 325 mg PO BID 08/19/20 [History Last Taken 08/18/20 08:00] menthol-zinc oxide [Calmoseptine] 1 applic TOPICAL DAILY PRN 08/19/20 [History Last Taken Unknown] potassium chloride 20 meq PO BID 08/19/20 [History Last Taken 08/18/20 08:00] sennosides-docusate sodium [Senna-S] 1 tab-cap PO DAILY 08/19/20 [History Last Taken 08/18/20] sertraline [Zoloft] 50 mg PO DAILY 08/19/20 [History Last Taken 08/18/20 08:00] thyroid (pork) 60 mg PO DAILY 08/19/20 [History Last Taken 08/18/20 08:00] Allergy/AdvReac Type Severity Reaction Status Date / Time hydrochlorothiazide Allergy Swelling Verified 08/18/20 23:36 lisinopril Allergy Swelling Verified 08/18/20 23:36 codeine AdvReac Severe Unknown Verified 08/18/20 23:36 prednisone AdvReac Severe Unknown Verified 08/18/20 23:36 paroxetine [From Paxil] AdvReac Intermediate Agitation Verified 08/18/20 23:36 amiodarone AdvReac Other Verified 08/18/20 23:36 amlodipine [From Norvasc] AdvReac Other Verified 08/19/20 01:11 Corticosteroids AdvReac Other Verified 08/18/20 23:36 (Glucocorticoids) diphenhydramine HCl AdvReac Other Verified 08/18/20 23:36 [From Benadryl] morphine AdvReac Other Verified 08/18/20 23:36 amlodopine AdvReac Severe Flushing, Uncoded 08/18/20 23:36 nervousness Many foods AdvReac Severe Hives Uncoded 01/06/19 12:31 Family History Father CAD (coronary artery disease) Brother Cancer Brother Diabetes Surgical History H/O arthroscopic knee surgery H/O coronary artery bypass surgery (10/04/10) History of back surgery History of hysterectomy History of shoulder surgery Hx of CABG Social History (Updated 01/06/19 @ 13:[address] Abilio Tian MD) Smoking Status: Never smoker alcohol intake: never substance use type: does not use caffeine: No what type of physical activity do you participate in: none seatbelt use: always do you feel safe at home: Yes Physical Exam Const alert and oriented x3 Orientation / Consciousness: awake HEENT normocephalic Eyes no scleral icterus Neck no JVD Chest inspection of chest normal Resp normal respiratory effort Cardio S1 normal heart sound and S2 normal heart sound Extremity no pedal edema Skin no rashes or lesions noted Neuro oriented x3 Psych mental status grossly normal Objective Data Vital Signs: Vital Signs Temp Pulse Resp BP Pulse Ox 97.4 F L 76 18 120/45 L 100 08/19/20 14:00 08/19/20 14:00 08/19/20 14:00 08/19/20 14:00 08/19/20 14:00 Oxygen Flow Rate (L/min) 4 Oxygen Delivery Method Nasal Cannula Weight: 118 lb 6.212 oz Body Mass Index (BMI) 20.4 Intake & Output: Intake and Output for Last 24 Hours 08/17/20 08/18/20 08/19/20 23:59 23:59 23:59 Intake Total 110.5 / 110.5 Output Total 400 / 400 Balance -289.5 / -289.5 Lab / Micro Data Result Diagrams: 08/19/20 05:29 08/19/20 05:29 Labs: Laboratory Results - last 24 hr 08/19/20 08/19/20 05:29 05:29 WBC 22.7 H RBC 3.18 L Hgb 9.7 L Hct 32.3 L MCV 101.6 H MCH 30.5 MCHC 30.0 L RDW Std Deviation 59.9 H RDW Coeff of Darrell 16.1 H Plt Count 295 MPV 11.2 Immature Gran % (Auto) 0.400 Neut % (Auto) 90.2 H Lymph % (Auto) 5.0 L Reynolds % (Auto) 4.3 Eos % (Auto) 0.0 Baso % (Auto) 0.1 Absolute Neuts (auto) 20.4 H Absolute Lymphs (auto) 1.13 Nucleated RBC % 0 Sodium 140 Potassium 3.9 Chloride 106 Carbon Dioxide 28.0 Anion Gap 6 BUN 15 Creatinine 0.58 Estim Creat Clear Calc 36.77 Est GFR (MDRD) Af Amer 127 Est GFR (MDRD) Non-Af 105 BUN/Creatinine Ratio 25.7 H Glucose 92 Calcium 8.5 Cardiology Labs/Tests 08/19/20 05:29: WBC 22.7 H, RBC 3.18 L, Hgb 9.7 L, Hct 32.3 L, MCV 101.6 H, MCH 30.5, MCHC 30.0 L, Plt Count 295, MPV 11.2, Immature Gran % (Auto) 0.400, Neut % (Auto) 90.2 H, Lymph % (Auto) 5.0 L, Reynolds % (Auto) 4.3, Eos % (Auto) 0.0, Baso % (Auto) 0.1, Absolute Neuts (auto) 20.4 H, Nucleated RBC % 0 08/19/20 05:29: Sodium 140, Potassium 3.9, Chloride 106, Carbon Dioxide 28.0, Anion Gap 6, BUN 15, Creatinine 0.58, Est GFR (MDRD) Af Amer 127, Est GFR (MDRD) Non-Af 105, BUN/Creatinine Ratio 25.7 H, Glucose 92, Calcium 8.5 Rhythm: EKG: ECHO: Stress Test: Cardiac Cath: PCI: CT Surgery: Holter monitor: EPS: PPM: CXR: Chest CT Scan: Radiography Diagnostic Testing: Radiology Impression Echocardiogram 08/19/20 00:33 Interpretation Summary The estimated ejection fraction is 55 %. Mild tricuspid valve insufficiency. Pulmonary artery systolic pressure is 60-65 mmHg. Unable to assess diastolic dysfunction. Ordering Physician: Jeb Pedro Referring Physician: Tamera Zepeda Performed By: Osmany Lua RCS
--- NOTE | 2020-08-19 15:17 | EX.NTREPO ---
Medical Nutrition Therapy - History Nutrition Services has been consulted to:: Manage nutrient details of diet order Current diet/nutrition support order:: Regular - minced/moist ([facility] soft) w/ moderately (honey) thick liquids - Anthropometric Measurements Height:: 5 ft 4 in Weight:: 53.7 kg Body Mass Index (BMI):: 20.3 - Relevant Labs Relevant Labs:: WBC 22.7 K/mm3 (4.4-11.0) H 08/19/20 05:29 RBC 3.18 M/mm3 (4.2-5.4) L 08/19/20 05:29 Hgb 9.7 g/dL (12.0-15.0) L 08/19/20 05:29 Hct 32.3 % (37-47) L 08/19/20 05:29 MCV 101.6 fL (81-99) H 08/19/20 05:29 MCHC 30.0 g/dL (32-36) L 08/19/20 05:29 RDW Std Deviation 59.9 fl (35.1-43.9) H 08/19/20 05:29 RDW Coeff of Darrell 16.1 % (11.6-14.6) H 08/19/20 05:29 Neut % (Auto) 90.2 % (47-70) H 08/19/20 05:29 Lymph % (Auto) 5.0 % (19-41) L 08/19/20 05:29 Absolute Neuts (auto) 20.4 X10^3/uL (2.0-7.7) H 08/19/20 05:29 BUN/Creatinine Ratio 25.7 RATIO (10-20) H 08/19/20 05:29 - Assessment Food and Nutrient Intake: PO intake to be established - failed nsg dysphagia screen - seen by FULL TIME STAFF INTERPRETER and placed on [facility] altered diet. UBW: 68.7 kg 05/05/19 - 22% wt loss x 14 mo. Pt placed self on diet of no sugar and starches after reading a book and is pleased w/ her wt loss. - Nutrition Diagnosis: Intake Problem Inadequate Oral Intake Intake Problem - Etiology: r/t unsupported beliefs/attitudes about food or nutrition related topics Intake Problem - Signs/Symptoms: aeb read a book that said it was bad to eat sugar/starch and pt put myself off sugar/starch and has had 22% wt loss x 14 mo and has fat/muscle loss (temporal/orbital regions of face, bony protruding clavicles) - pt happy with wt loss. - Nutrition Diagnosis: Clinical Problem Biting/Chewing Difficulty Clinical Problem - Etiology: r/t dysphagia Clinical Problem - Signs/Symptoms: aeb need for modified consistency diet (foods and fluids) per FULL TIME STAFF INTERPRETER - Protein Calorie Malnutrition Evidence of Malnutrition Exists: No Severe Protein Calorie Malnutrition:: Social/Behavioral/Environmental - Nutrition Intervention Nutrition Prescription: [id number] arlene/day (RMR x 1.2-1.3). 54-64 gm pro/day (1-1.2 gm/kg). 1673 ml fluid/day (per ASPEN guidelines) - Food / Nutrient Delivery Interventions Summary of nutrition intervention:: Adjust diet order, Provide oral nutrition supplement - please call RD/LD at [phone] if questions/concerns. Nutrition support ordered as / adjusted to:: Will order ensure enlive w/ medpass. Rec continue liberal Regular diet w/ consistency per FULL TIME STAFF INTERPRETER. Nutrition Counseling: Spoke to pt about how some foods have natural sugar in them (ie fruit has fructose, milk has lactose) and that limiting junk foods w/ excessive table sugar (sucrose) may be beneficial for snf health. Suggested pt try ensure enlive for increased nutrition d/t severe wt loss and pt agreed to try it. - MNT Monitoring Active Nutrition Patient: Yes Nutrition Status: Requires Follow Up 3-5 Days
--- NOTE | 2020-08-19 15:21 | CASEMGMT ---
H&P, facesheet, and OT/ST notes faxed to [facility]. Jan VALENTE CM
--- NOTE | 2020-08-19 15:31 | CASEMGMT ---
H&P, facesheet, and OT/ST notes faxed to [facility] to obtain precert back to [facility]. Jan VALENTE CM
--- NOTE | 2020-08-19 15:46 | CASEMGMT ---
SW did submit information to [facility] to obtain pre-cert. However, patient's daughter came in and asked if patient would be appropriate for Hospice. She said she has already talked with [facility]. SONNY told her SW will check with the physician. SONNY spoke with Dr Riojas and she felt patient would be appropriate and is okay with SW making a referral. SW faxed referral and also called. SONNY spoke with Marge at [facility] regarding referral. SONNY then went to patient's room and spoke with patient's daughter. SW let her know above and that a referral was faxed. SW let her know Hospice will be calling her. SONNY called [facility] and spoke with Renetta as Sheila was unavailable. SW let her know Hospice is being consulted so patient may return on Hospice. SONNY called Dayna at [facility] and let her know Hospice is being consulted so she can cancel the request for skilled. Plan: Return to [facility] possibly on Hospice. Stephie Benavidez SOFTWARE DEVELOPMENT INTERN PERLA
[2020-08-19] MEDS: Allopurinol 100 MG Tablet PO (16:16)
[2020-08-19] MEDS: Acetaminophen 325 MG Tablet 650 MG PO (22:37)
[2020-08-19] MEDS: hydrOXYzine PAM 25 MG Capsule 50 MG PO (23:31)
[2020-08-20 03:00] VITALS: PULSE 66
[2020-08-20 04:10] VITALS: BP 116/50; PULSE 64; RESP 18; TEMP 36.6; O2SAT 98
[2020-08-20] MEDS: Furosemide 20 MG/2 ML VIAL IV ×2 (06:04→14:20)
[2020-08-20] MEDS: 0.9% Saline Lock 10 ML Syringe IV ×2 (06:05→14:20)
[2020-08-20 06:54] LABS: Absolute Lymphocyte Count 1.13 X10^3/uL (0.83-4.51); Absolute Neutrophil Count 5.2 X10^3/uL (2.0-7.7); Basophil# 0.02 X10^3/uL; Basophil% 0.3 % (0-1); Eosinophil# 0.15 X10^3/uL; Eosinophils% 2.1 % (0-5); Hematocrit 29.8 % (37-47); Hemoglobin 9.1 g/dL (12.0-15.0); Lymphocyte # 1.13 X10^3/ul (0.83-4.51); Mean Corp Hgb Conc 30.5 g/dL (32-36); Mean Corpuscular Hgb 30.4 pg (27.0-32.0); Mean Corpuscular Volume 99.7 fL (81-99); Mean Platelet Vol. 10.9 fl (6.2-12.0); Monocyte# 0.59 X10^3/uL; Monocyte% 8.4 % (0-10); NRBC Flagged by Analyzer 0 % (0-5); Neutrophil # 5.15 X10^3/uL (2.7-7.7); Neutrophil % 72.9 % (47-70); Platelet Count 253 K/mm3 (150-450); RBC Distribution Width CV 16.2 % (11.6-14.6); RBC Distribution Width SD 59.2 fl (35.1-43.9); Red Blood Count 2.99 M/mm3 (4.2-5.4); White Blood Count 7.1 K/mm3 (4.4-11.0)
[2020-08-20 07:00] VITALS: PULSE 68
[2020-08-20 07:19] LABS: Anion Gap 6 (5-15); BUN 24 mg/dL (7-18); BUN/Creat Ratio 30.7 RATIO (10-20); Calcium,Total 8.1 mg/dL (8.5-10.1); Chloride 106 mmol/L (98-107); Creatinine, Serum 0.78 mg/dL (0.55-1.02); EST Glomerular Filtration Rate 75 mL/min (>60); Est Glom Filt Rate - Afr Amer 91 mL/min (>60); Estimated Creatinine Clearance 36.29 ml/min; Glucose 81 mg/dL (74-106); Potassium 3.3 mmol/L (3.5-5.1); Sodium Level 143 mmol/L (136-145)
[2020-08-20 07:20] VITALS: O2SAT 96
[2020-08-20 08:35] VITALS: BP 129/48; PULSE 70; RESP 18; TEMP 36.6; O2SAT 100
[2020-08-20] MEDS: Aspirin E.C. 81 MG Tablet PO (08:37)
[2020-08-20] MEDS: Enoxaparin 40 MG/0.4 ML Syringe SC (08:38)
[2020-08-20] MEDS: Sertraline 50 MG Tablet PO (08:38)
[2020-08-20] MEDS: dilTIAZem CD 120 MG Capsule PO (08:38)
[2020-08-20] MEDS: Carvedilol 6.25 MG Tablet PO (08:38)
--- NOTE | 2020-08-20 12:43 | CASEMGMT ---
Per Britni VALENTE, pt/daughter signed Hospice papers. Call to [facility] and they are able to take pt back today on Hospice, but would like info faxed and updated on transport time. There is also a green sheet already on chart for same. Dr. Riojas and Britni VALENTE updated, voice understanding. Karlene DENNIS updated, voices understanding. Jan VALENTE CM
--- NOTE | 2020-08-20 13:21 | PCM.DC.SUM ---
Providers Date of Admission: 08/18/20 Primary Care Physician: PIPER Zaman Consultations 08/18/20 23:30 Consult: Cardiology Routine Consulting Provider: Carlie De La Vega Reason for Consult: NSTEMI EMERGENT Consult: No MD Notified: Yes Date Notified:: 08/18/20 Time Notified: 23:34 Method of Notification: Verbal Method of Consult:: In-Person Reason For Visit: NSTEMI Diagnosis Discharge Diagnosis (1) Non-ST elevation myocardial infarction (NSTEMI), initial care episode: Status: Acute Code(s): I21.4 - Non-ST elevation (NSTEMI) myocardial infarction Medications at Discharge Home Medications aspirin 81 mg PO DAILY 10/28/14 calcium carbonate-vitamin D3 1 tab PO DAILY 10/28/14 Capsaicin 1 applicatio TOPICAL TID 04/16/19 Tylenol 650 mg PO Q6H PRN PRN 04/16/19 benzocaine-menthol 1 lozenger PO Q2H PRN PRN 04/16/19 carvedilol 1 tab PO BID 04/16/19 diltiazem HCl 120 mg PO BID 04/16/19 Biotene 15 ml MM 5X/DAY PRN 04/30/19 acidophilus-pectin, citrus 1 tab PO TID 04/30/19 bisacodyl 10 mg ID X1 PRN 04/30/19 loperamide 2 mg PO Q4H PRN PRN 04/30/19 magnesium hydroxide 30 ml PO DAILY PRN PRN 04/30/19 ibuprofen 200 mg PO/SL Q12H PRN PRN 08/18/20 polyethylene glycol 3350 17 gm PO PRN PRN 08/18/20 Calmoseptine 1 applic TOPICAL DAILY PRN 08/19/20 ESSENTIAL AMINO ACID MIX 1 dose PO/SL DAILY 08/19/20 Restful Sleep 1 tablet PO/SL QHS 08/19/20 allopurinol 100 mg PO DINNER 08/19/20 camphor-methyl salicyl-menthol 1 patch TOPICAL DAILY 08/19/20 clonazepam [Klonopin] 2 mg PO QHS 08/19/20 ferrous sulfate 325 mg PO BID 08/19/20 potassium chloride 20 meq PO BID 08/19/20 sennosides-docusate sodium [Senna-S] 1 tab-cap PO DAILY 08/19/20 sertraline [Zoloft] 50 mg PO DAILY 08/19/20 thyroid (pork) 60 mg PO DAILY 08/19/20 levofloxacin 500 mg PO DAILY #5 tab 08/20/20 Hospital Course Procedures None and 2-D Echocardiogram Summary of Care Provided Minutes Spent on Discharge: 50 Hospital Course: Patient is an 80-year-old female with an extensive past medical history as outlined was admitted as a direct admit from [facility] in [facility] emergency room where she was transferred from after she went there for generalized weakness. Chest x-ray done showed a right lower lobe infiltrate and suspected bilateral perihilar infiltrates and CT of the chest done showed no evidence of PE but showed multiple areas of consolidation thought to be due to pneumonia with interstitial edema concerning for CHF. Of note D-dimer done was also elevated but has stated, CT of the chest was negative for PE. Labs showed white cell count elevated at 22,000 and troponins were also elevated. Patient required 3 L of oxygen to maintain saturation above 90% and EKG showed sinus tachycardia with occasional PVCs. She was started on heparin drip on account of non-STEMI. She was started on IV broad-spectrum antimicrobials and also diuresed with IV Lasix. Cardiology reviewed patient and felt that his symptoms and elevated troponin was likely due to pneumonia and so no further work-up was recommended. Of note, patient also had UTI with 3+ bacteria in her urine. She was on IV Zosyn throughout her admission. At patient and family's request, hospice care was consulted due to patient's increasing weakness and debility. Patient and family were agreeable to patient being discharged back to the halfway with hospice. Patient was therefore discharged to the SNF with hospice on 08/20/2020. Patient was seen and examined prior to discharge. She did appear to be confused and kept saying that she wanted to go to her mother's house where a bed had been prepared for her. She had no active complaints and review of stents otherwise negative. Labs and vitals reviewed. Medication reviewed and reconciled. Physical Exam Const alert and no apparent distress Constitutional Narrative: Patient appears frail and older than her stated age, confused General Appearance: cooperative, well kempt and well developed Orientation / Consciousness: awake, oriented to person, oriented to place, oriented to time and lethargic Exam Limitations: no limitations HEENT normocephalic, head/scalp atraumatic, hearing grossly normal bilaterally and moist oral mucous membranes Eyes PERRL, EOMs intact bilaterally and conjunctivae normal Neck nuchal rigidity, no lymphadenopathy, supple, thyroid normal and no carotid bruits General: trachea midline Resp normal respiratory effort, no retractions, no use of accessory muscles and clear to auscultation bilaterally Resp Narrative: diminished breath sounds bibasally, no wheezes or crackles. on 4L of oxygen. Auscultation: Negative for rales, rhonchi or wheezes Cardio regular rate, regular rhythm, S1 normal heart sound, S2 normal heart sound, no murmurs, no rub, no gallops, no clicks and no JVD GI normal to inspection, nondistended, normoactive bowel sounds, soft to palpation, non-tender and non-distended Extremity normal to inspection, full ROM and no clubbing, cyanosis or edema Skin no rashes or lesions noted, no wounds and skin turgor normal General Skin Exam: no breakdown Neuro CN's II-XII intact bilaterally, moves all extremities, no focal motor deficits and no sensory deficits noted Sensorium / Orientation: awake and alert Speech: speech normal Psych thought process normal and affect normal Psych Narrative: confused ABG / Lab / Microbiology Data Result Diagrams: 08/20/20 06:30 08/20/20 06:30 Laboratory: Laboratory Results - last 24 hr 08/20/20 08/20/20 06:30 06:30 WBC 7.1 RBC 2.99 L Hgb 9.1 L Hct 29.8 L MCV 99.7 H MCH 30.4 MCHC 30.5 L RDW Std Deviation 59.2 H RDW Coeff of Darrell 16.2 H Plt Count 253 MPV 10.9 Immature Gran % (Auto) 0.300 Neut % (Auto) 72.9 H Lymph % (Auto) 16.0 L Power % (Auto) 8.4 Eos % (Auto) 2.1 Baso % (Auto) 0.3 Absolute Neuts (auto) 5.2 Absolute Lymphs (auto) 1.13 Nucleated RBC % 0 Sodium 143 Potassium 3.3 L Chloride 106 Carbon Dioxide 31.0 Anion Gap 6 BUN 24 H Creatinine 0.78 Estim Creat Clear Calc 36.29 Est GFR (MDRD) Af Amer 91 Est GFR (MDRD) Non-Af 75 BUN/Creatinine Ratio 30.7 H Glucose 81 Calcium 8.1 L D/C Instructions Discharge Diet: 2000 mg Sodium Diet Discharge Activity: Return to Normal Activity Weight Bearing Status: Weight bearing as tolerated Meaningful Use Info Meaningful Use Diagnoses (Choose all that apply): AMI and CHF AMI/Post PCI/Angioplasty Aspirin given w/in 24hrs of arrival?: Yes ASA at discharge?: Yes Antiplatelet Therapy at Discharge:: No Statins at discharge?: Yes Marco Antonio/ARB at discharge?: Yes Beta Ciro at discharge?: Yes Done w/ Acute PR measure.: Yes Documented LVEF (%): 55 CHF MARCO ANTONIO/ARB ordered at discharge?: Yes Documented LVEF (%): 55 Discharge Plan Admission Admit Date/Time: 08/18/20 23:31 Primary Reason for Your Visit: pneumonia, heart failure, nstemi Attending Provider: Charley Riojas Primary Care Provider: Tamera Zepeda NP Consulting Providers: Carlie De La Vega Discharge Orders/Prescriptions Prescriptions: New levofloxacin 500 mg tablet 500 mg PO DAILY Qty: 5 RF: 0 Continued aspirin 81 MG tablet 81 mg PO DAILY RF: 0 calcium carbonate-vitamin D3 1 EACH tablet,chewable 1 tab PO DAILY RF: 0 carvedilol 6.25 MG tablet 1 tab PO BID RF: 0 benzocaine-menthol 1 EACH lozenge 1 lozenger PO Q2H PRN PRN (Reason: Sore Throat) RF: 0 Capsaicin 1 applicatio topical TID RF: 0 Tylenol 650 mg PO Q6H PRN PRN (Reason: Pain Or Fever) RF: 0 diltiazem HCl 120 MG capsule,extended release 24hr 120 mg PO BID RF: 0 loperamide 2 MG capsule 2 mg PO Q4H PRN PRN (Reason: Diarrhea) RF: 0 magnesium hydroxide 30 ML suspension 30 ml PO DAILY PRN PRN (Reason: Constipation) RF: 0 bisacodyl 10 MG suppository 10 mg ID X1 PRN (Reason: Constipation) RF: 0 acidophilus-pectin, citrus 1 TABLET tablet 1 tab PO TID RF: 0 Biotene 15 ml MM 5X/DAY PRN (Reason: Dry Mouth) RF: 0 polyethylene glycol 3350 17 GM powder in packet 17 gm PO PRN PRN (Reason: Constipation) RF: 0 ibuprofen 200 mg PO/SL Q12H PRN PRN (Reason: Pain) RF: 0 camphor-methyl salicyl-menthol Adhesive Patch,Medicated 1 patch TOPICAL DAILY RF: 0 Restful Sleep 1 tablet PO/SL QHS RF: 0 sertraline [Zoloft] 50 mg Tablet 50 mg PO DAILY RF: 0 allopurinol 100 mg Tablet 100 mg PO DINNER RF: 0 potassium chloride 20 mEq tablet,ER particles/crystals 20 meq PO BID RF: 0 ESSENTIAL AMINO ACID MIX 1 dose PO/SL DAILY RF: 0 ferrous sulfate 325 mg (65 mg iron) Tablet,Delayed Release (Dr/Ec) 325 mg PO BID RF: 0 Calmoseptine 0.44-20.6 % Ointment 1 applic TOPICAL DAILY PRN (Reason: Diaper Rash) RF: 0 thyroid (pork) 60 mg Tablet 60 mg PO DAILY RF: 0 sennosides-docusate sodium [Senna-S] 8.6-50 mg Tablet 1 tab-cap PO DAILY RF: 0 clonazepam [Klonopin] 2 mg Tablet 2 mg PO QHS RF: 0 Referrals / Follow Up: Tamera Zepeda KNITTING MACHINE MECHANIC, KNITTING MACHINE MECHANIC-C [Primary Care Provider] - Disposition Disposition (needs filled in before D/C Order can be placed): Hospice in Medical Facility
--- NOTE | 2020-08-20 13:23 | CASEMGMT ---
SW Note Referral Source: [employer] Referral Reason: Referral To Insurance Rater advised that patient met with hospice and the [facility] (SNF) that patient came from, [facility], will accept patient when discharged. Discharge plan for tomorrow 08/21/20. Plan: SNF with Hospice Karlene MARQUEZ
--- NOTE | 2020-08-20 13:56 | TREXTCAR_ITS ---
Diet 08/19/20 13:39 Diet: Regular - General Food consistency:: Mechanical (Minced/Moist) Liquid Consistency:: Honey/Moderately Thick Is pt able to select menu?: Yes Diet Comments: supervised meals Problem/Diagnosis (1) Non-ST elevation myocardial infarction (NSTEMI), initial care episode: Status: Acute Allergies/Procedures Done in Hospital Allergies hydrochlorothiazide Allergy (Verified 08/18/20 23:36) Swelling lisinopril Allergy (Verified 08/18/20 23:36) Swelling codeine Adverse Reaction (Severe, Verified 08/18/20 23:36) Unknown prednisone Adverse Reaction (Severe, Verified 08/18/20 23:36) Unknown paroxetine [From Paxil] Adverse Reaction (Intermediate, Verified 08/18/20 23:36) Agitation amiodarone Adverse Reaction (Verified 08/18/20 23:36) Other i went out of my head amlodipine [From Norvasc] Adverse Reaction (Verified 08/19/20 01:11) Other Corticosteroids (Glucocorticoids) Adverse Reaction (Verified 08/18/20 23:36) Other hyper diphenhydramine HCl [From Benadryl] Adverse Reaction (Verified 08/18/20 23:36) Other hyper morphine Adverse Reaction (Verified 08/18/20 23:36) Other it just paralyzes me. I will take it if in an end of life situation amlodopine Adverse Reaction (Severe, Uncoded 08/18/20 23:36) Flushing, nervousness Many foods Adverse Reaction (Severe, Uncoded 01/06/19 12:31) Hives Type of Care/Length of Stay Estimated LOS: Convalescent Care Less Than 30 days Type of Care Needed: Inpt Hospice Facility Rehab Potential: Poor Prognosis: Poor Additional Orders/Day of Discharge Day of Discharge: 08/20/20 Dietary and Speech Recommendations Dietitian Recommendations/Changes: Will order ensure enlive w/ medpass. Rec continue liberal Regular diet w/ consistency per [facility]. Discharge Plan Admission Admit Date/Time: 08/18/20 23:31 Primary Reason for Your Visit: pneumonia, heart failure, nstemi Attending Provider: Charley Riojas Primary Care Provider: Tamera Zepeda NP Consulting Providers: Carlie De La Vega Discharge Orders/Prescriptions Prescriptions: New levofloxacin 500 mg tablet 500 mg PO DAILY Qty: 5 RF: 0 Continued aspirin 81 MG tablet 81 mg PO DAILY RF: 0 calcium carbonate-vitamin D3 1 EACH tablet,chewable 1 tab PO DAILY RF: 0 carvedilol 6.25 MG tablet 1 tab PO BID RF: 0 benzocaine-menthol 1 EACH lozenge 1 lozenger PO Q2H PRN PRN (Reason: Sore Throat) RF: 0 Capsaicin 1 applicatio topical TID RF: 0 Tylenol 650 mg PO Q6H PRN PRN (Reason: Pain Or Fever) RF: 0 diltiazem HCl 120 MG capsule,extended release 24hr 120 mg PO BID RF: 0 loperamide 2 MG capsule 2 mg PO Q4H PRN PRN (Reason: Diarrhea) RF: 0 magnesium hydroxide 30 ML suspension 30 ml PO DAILY PRN PRN (Reason: Constipation) RF: 0 bisacodyl 10 MG suppository 10 mg RI X1 PRN (Reason: Constipation) RF: 0 acidophilus-pectin, citrus 1 TABLET tablet 1 tab PO TID RF: 0 Biotene 15 ml MM 5X/DAY PRN (Reason: Dry Mouth) RF: 0 polyethylene glycol 3350 17 GM powder in packet 17 gm PO PRN PRN (Reason: Constipation) RF: 0 ibuprofen 200 mg PO/SL Q12H PRN PRN (Reason: Pain) RF: 0 camphor-methyl salicyl-menthol Adhesive Patch,Medicated 1 patch TOPICAL DAILY RF: 0 Restful Sleep 1 tablet PO/SL QHS RF: 0 sertraline [Zoloft] 50 mg Tablet 50 mg PO DAILY RF: 0 allopurinol 100 mg Tablet 100 mg PO DINNER RF: 0 potassium chloride 20 mEq tablet,ER particles/crystals 20 meq PO BID RF: 0 ESSENTIAL AMINO ACID MIX 1 dose PO/SL DAILY RF: 0 ferrous sulfate 325 mg (65 mg iron) Tablet,Delayed Release (Dr/Ec) 325 mg PO BID RF: 0 Calmoseptine 0.44-20.6 % Ointment 1 applic TOPICAL DAILY PRN (Reason: Diaper Rash) RF: 0 thyroid (pork) 60 mg Tablet 60 mg PO DAILY RF: 0 sennosides-docusate sodium [Senna-S] 8.6-50 mg Tablet 1 tab-cap PO DAILY RF: 0 clonazepam [Klonopin] 2 mg Tablet 2 mg PO QHS RF: 0 Referrals / Follow Up: Tamera Zepeda DIRECTOR [employer]URSING, DIRECTOR [employer] [facility]URSING-C [Primary Care Provider] - Disposition Disposition (needs filled in before D/C Order can be placed): Hospice in Medical Facility
[2020-08-20 14:18] VITALS: BP 111/44; PULSE 64; RESP 16; TEMP 36.3; O2SAT 99
--- NOTE | 2020-08-20 14:57 | NURSING ---
Report called to Mavis at [facility] and report called to Hospice nurse Sofiya
== END 2020-08-20 16:28 | disposition hospice, inpatient (51) | DRG 871 ==
PROVIDERS: Admitting Provider Internal Medicine; PCP Nurse Practitioner Primary Care; Visit Provider Student in an Organized Health Care Education/Training Program
DX: A41.9 Sepsis, unspecified organism (principal); I21.4 Non-ST elevation (NSTEMI) myocardial infarction; J18.9 Pneumonia, unspecified organism; I50.33 Acute on chronic diastolic (congestive) heart failure; J96.11 Chronic respiratory failure with hypoxia; Q24.0 Dextrocardia; N39.0 Urinary tract infection, site not specified; I11.0 Hypertensive heart disease with heart failure; Y95 Nosocomial condition; I25.10 Atherosclerotic heart disease of native coronary artery without angina pectoris; K21.9 Gastro-esophageal reflux disease without esophagitis; M10.9 Gout, unspecified; F32.9 Major depressive disorder, single episode, unspecified; J45.909 Unspecified asthma, uncomplicated; M19.90 Unspecified osteoarthritis, unspecified site; R13.12 Dysphagia, oropharyngeal phase; M35.3 Polymyalgia rheumatica; E55.9 Vitamin D deficiency, unspecified; E03.9 Hypothyroidism, unspecified; G72.41 Inclusion body myositis [IBM]; Z66 Do not resuscitate; Z79.899 Other long term (current) drug therapy; Z79.82 Long term (current) use of aspirin; Z95.1 Presence of aortocoronary bypass graft
CPT/HCPCS: 36415; 80048; 85025; 92507; 92610; 93005; 93306; 97162; 97166; 97802; J7050; Q9957; A4216; C8929; J1940; J3490